=== PATIENT | male | born 1960 | race Caucasian/White ===

== ENCOUNTER 2018-12-06 08:33 | Emergency (ER) | payer BC, MEDICARE ==
--- OUTSIDE RECORDS SUMMARY | 2018-12-06 08:40 | XMS REPORT ---
:1960 [facility] Address [address] [place] [address] Dr. Mosqueda [address] [place] [id number] Care Team Providers Name Role Phone Unavailable Unavailable Unavailable Problems This patient has no known problems. Allergies, Adverse Reactions, Alerts This patient has no known allergies or adverse reactions. Medications This patient has no known medications.
[2018-12-06] MEDS ORDERED: NA CHLORIDE 0.9% 1,000 ML ONE (09:21)
[2018-12-06 09:44] LABS: Urine Blood NEGATIVE (NEG); Urine Glucose NEGATIVE (NEG); Urine Protein NEGATIVE (NEG); Urine Specific Gravity 1.015 (1.005-1.030); Urine pH 7.5 (5.0-7.0)
--- NOTE | 2018-12-06 09:50 | RAD REPORT ---
EXAM DESCRIPTION: [place] Single View12/06/2018 9:27 am CLINICAL HISTORY: Abdominal pain COMPARISON: none FINDINGS: The lungs appear clear of acute infiltrate. The heart is normal size. Old non healed right clavicular fracture IMPRESSION: No acute abnormalities displayed
[2018-12-06] MEDS ORDERED: FENTANYL CITR 100 MCG/2 ML ONE ×2 (09:56→14:29)
[2018-12-06 10:00] LABS: Absolute Lymphocytes (CBC) 1.5 K/uL (0.7-4.9); Absolute Monocytes 0.9 K/uL (0.1-1.3); Basophils % 0.8 % (0-1.3); Hematocrit 47.4 % (39.6-49.0); Lymphocytes % 17.5 % (15.3-44.8); MPV 7.5 fL (7.6-11.3); Monocytes % 10.3 % (3.3-12.3); RBC Red Blood Cell Count 5.16 M/uL (4.33-5.43)
[2018-12-06 10:03] LABS: ALT/SGPT 29 U/L (12-78); AST/SGOT 19 U/L (15-37); Albumin 3.7 g/dL (3.4-5.0); Alkaline Phosphatase 72 U/L (45-117); BUN Blood Urea Nitrogen 17 mg/dL (7-18); Bicarbonate 28 mmol/L (21-32); Bilirubin Direct < 0.1 mg/dL (0-0.2); Bilirubin Total 0.4 mg/dL (0.2-1.0); Creatine Phosphokinase 186 U/L (39-308); Glucose Level 121 mg/dL (74-106); Potassium 3.7 mmol/L (3.5-5.1); Protein, Total 7.5 g/dL (6.4-8.2); Sodium Level 134 mmol/L (136-145)
[2018-12-06 10:04] LABS: Protime INR 1.04
[2018-12-06 10:13] LABS: Urine Bacteria <20 /HPF (NONE SEEN); Urine Culture Reflex Order NOT NEEDED; Urine RBC <5 /HPF (NONE SEEN)
--- NOTE | 2018-12-06 10:39 | EKG ---
Test Date: 2018-12-06 Test Time: 09:23:33 Psychiatric Security Nurse: AMANDEEP MEASUREMENT RESULTS: Intervals: Rate: 109 IN: 158 QRSD: 88 QT: 328 QTc: 441 [place]: P: 19 IN: 158 QRS: 3 T: 15 INTERPRETIVE STATEMENTS: Sinus tachycardia PVCs Otherwise normal ECG No previous ECG available for comparison Electronically Signed On 12-06-18 10:38:56 CDT by Harrison Mike
--- NOTE | 2018-12-06 12:24 | RAD REPORT ---
EXAM DESCRIPTION: MRI - Lumbar Spine Wo Paul - 12/06/2018 12:00 pm CLINICAL HISTORY: Back pain, abdominal pain, urinary retention COMPARISON: MRI lumbar spine November 2015 TECHNIQUE: Sagittal T1-weighted, T2-weighted and T2-STIR weighted sequences were obtained. Axial T1 -weighted and heavily T2-weighted sequenceswere obtained through the lumbar disc levels. FINDINGS: Mild wedge compression of the T12 and L1 bodies noted similar to comparison. No active mar row edema in these 2 vertebrae. L2-L5 bodies are normal in height. There is retrolisthesis of L2 on L 3 and L3 on L4 that has progressed slightly from 2016. Anterior subluxation of L5 on S1 has progresse d slightly from comparison. There is accentuated lumbar lordosis. Mild thoracolumbar kyphosis noted similar to comparison. Active degenerative marrow edema in L4 and L3 noted. This is centered at the L3-4 disc space but invo lves most of each of these 2 vertebrae. No suspicious marrow signal. No paraspinal masses. Conus is normal with no clumping or thickening of the cauda equina. T12-L1 level: Disc is desiccated. Mild disc bulge changes are present. No canal stenosis or significa nt foraminal encroachment. L1-2 level: Disc is thinned and desiccated. Large anterior disc bulge and endplate spurring changes a re present. In the central canal there is a disc bulge without herniation. Foraminal disc bulge and e ndplate spurring changes are present without significant foraminal stenosis. No central canal stenosi s. L2-3 level: Disc is thinned and desiccated. There is a large midline and left-sided disc herniation t hat extends inferiorly along the posterior wall of L3. Herniation measures 10 mm AP x 14 mm TR x 15 m m CC. There is significant flattening of the thecal sac. Central spinal stenosis is present. Mild lig amentous thickening present. Foraminal disc bulge changes are present. No significant foraminal steno sis. L3-4 level: Disc is thinned and desiccated. Disc bulge and endplate spurring changes are accentuated by the retrolisthesis. Canal is borderline stenotic at 10 mm. Mild bilateral foraminal stenosis prese nt. L4-5 level: Disc is thinned and desiccated. There is a prominent bulging of disc material across the central canal but no canal stenosis. No significant foraminal stenosis. L5-S1 level: Disc is thinned and desiccated. There is a prominent pseudo bulge of disc material acros s the central canal. Bilateral pars defects are present. Significant bilateral foraminal stenosis is present due to disc bulge, endplate spurring in the subluxation abnormalities. Prominent facet degene rative changes are also present. IMPRESSION: Large midline and left-side L2-3 disc herniation extending inferiorly along the posterio r wall L3. Thecal sac is flattened with central spinal stenosis. Significant bilateral L5-S1 foraminal stenosis from disc bulge, endplate spurring and subluxation. Se elisa facet degenerative changes are present in pars defects are present. Additional degenerative changes are scattered throughout the lumbar spine. Patient has significant active degenerative marrow edema in the L3 and L4 bodies.
--- NOTE | 2018-12-06 14:27 | ER ---
Nurse's Notes [facility] Name: Luis Ryan Age: 58 yrs Sex: Male : 1960 Arrival Date: 12/06/2018 Time: 08:34 Bed 7 Private MD: Aram Styles S Diagnosis: Low back pain;Retention of urine;Intervertebral disc disorders with myelopathy, lumbar region Presentation: 12/06 08:55 Presenting complaint: Patient states: pain to lower abdomen and lower back started ch after large BM three weeks ago, felt something "pop" in pelvis "down there". slight discomfort since then, about 4 days ago, pain started getting worse, pain is in lower back, radiates down L leg, states when he goes to urinate it doesn't work, he just dribbles all the time, and he is having issues pooping. c/o pain in lower back and lower abdomen, michelle sides. denies trauma, hx of "bad back". Transition of care: patient was not received from another setting of care. Onset of symptoms was December 02, 2018. Risk Assessment: Do you want to hurt yourself or someone else? Patient reports no desire to harm self or others. Initial Sepsis Screen: Does the patient meet any 2 criteria? RR > 20 per min. HR > 90 bpm. Yes Does the patient have a suspected source of infection? No. Patient's initial sepsis screen is negative. Care prior to arrival: None. 08:55 Method Of Arrival: Ambulatory 08:55 Acuity: HINA 2 Triage Assessment: 09:00 General: Appears in no apparent distress. uncomfortable, Behavior is calm, cooperative, ch appropriate for age. Pain: Complains of pain in low back area, right lower quadrant, left lower quadrant and pelvis Pain currently is 6 out of 10 on a pain scale. Neuro: No deficits noted. Level of Consciousness is awake, alert, obeys commands, Oriented to person, place, time, situation, Mounter Automatic are equal bilaterally Moves all extremities. Full function Gait is steady, Speech is normal, Facial symmetry appears normal, Facial symmetry: tongue is midline, Pupils are PERRLA, Reports back pain, radiates down L leg. Cardiovascular: Heart tones S1 S2 present Capillary refill < 3 seconds in bilateral fingers toes Clubbing of nail beds is absent Rhythm is sinus tachycardia. Respiratory: Airway is patent Respiratory effort is even, unlabored, Respiratory pattern is tachypnea. GI: Abdomen is round non-distended, obese, Bowel sounds present X 4 quads. Reports pt states he is constipated, but then when he does have to go it all comes out. c/o nausea with pain. : Reports inability to void, dribbling. Derm: Skin is pale. Musculoskeletal: Circulation, motion, and sensation intact. Historical: - Allergies: 09:00 No Known Allergies; ch - Home Meds: 09:00 lisinopril-hydrochlorothiazide 20-25 mg oral tab 1 tab once daily [Active]; ch Hydrochlorothiazide Oral [Active]; memantine oral oral [Active]; - PMHx: 09:00 Hypertension; Alzheimers; early in dx 11/2018 (2019); ch - PSHx: 09:00 Knee surgery; L forearm; ch - Immunization history:: Adult Immunizations up to date, Flu vaccine is up to date. - Social history:: Smoking status: Patient/guardian denies using tobacco, Patient/guardian denies using alcohol, street drugs. - Ebola Screening: : Patient negative for fever greater than or equal to 101.5 degrees Fahrenheit, and additional compatible Ebola Virus Disease symptoms Patient denies exposure to infectious person Patient denies travel to an Ebola-affected area in the 21 days before illness onset No symptoms or risks identified at this time. Screenin:04 Abuse screen: Denies threats or abuse. Denies injuries from another. Nutritional ch screening: No deficits noted. Tuberculosis screening: No symptoms or risk factors identified. Fall Risk None identified. Assessment: 09:04 Reassessment: Bladder scan performed, 100mL in bladder. Benson in room inserting akins ch now. Neuro: Level of Consciousness is awake, alert, obeys commands, Oriented to person, place, time, situation. 09:38 Reassessment: Patient appears in no apparent distress at this time. Patient and/or ch family updated on plan of care and expected duration. Pain level reassessed. Patient is alert, oriented x 3, equal unlabored respirations, skin warm/dry/pink. pt states he feels relief since the akins insertion, his pain is improved, and is not radiating down his L leg. Patient states feeling better. 11:01 Reassessment: Patient appears in no apparent distress at this time. Patient and/or family updated on plan of care and expected duration. Pain level reassessed. Patient is alert, oriented x 3, equal unlabored respirations, skin warm/dry/pink. Patient states feeling better. Patient states symptoms have improved. 11:37 Reassessment: Patient appears in no apparent distress at this time. pt transported to MRI, family notified he will be here at least another 2 hours to get study done and to get report. 13:10 Reassessment: Patient appears in no apparent distress at this time. Anayeli in room to speak with pt, pt states they want to go to [facility]. 15:38 Reassessment: Patient appears in no apparent distress at this time. still awaiting ems for transfer. pt states he is more comfortable than he was when he came in. Vital Signs: 09:00 BP 151 / 82; Pulse 125; Resp 28; Temp 98.8(O); Pulse Ox 95% on R/A; Pain 6/10; ch 09:38 BP 138 / 84; Pulse 104; Resp 24; Pulse Ox 95% on R/A; Weight 124.74 kg; Height 5 ft. 11 in. (180.34 cm); Pain 6/10; 11:01 BP 127 / 66; Pulse 94; Resp 20; Temp 98.9; Pulse Ox 93% on R/A; Pain 4/10; ch 13:10 BP 116 / 74; Pulse 96; Resp 17; Temp 97.8; Pulse Ox 94% on R/A; Pain 5/10; ch 13:56 BP 122 / 76; Pulse 98; Resp 16; Temp 98; Pulse Ox 95% on R/A; Pain 6/10; ch 16:02 BP 116 / 71; Pulse 92; Resp 16; Temp 98.2; Pulse Ox 99% on R/A; Pain 5/10; ch 09:38 Body Mass Index 38.35 (124.74 kg, 180.34 cm) ED Course: 08:34 Patient arrived in ED. as 08:34 Aram Styles MD is Private Physician. as 08:44 Isis Colon, DEMARCO is Primary Nurse. 08:46 An[facility]eli Flynn [facility]-C [facility] 08:46 Martin Victoria MD is Attending Physician. snw 08:58 Triage completed. ch 09:00 Arm band placed on left wrist. Patient placed in an exam room, on a stretcher, on service sprinkler helper, on pulse oximetry. 09:04 No apparent distress. Resting quietly. ch 09:04 Patient has correct armband on for positive identification. Placed in gown. Bed in low ch position. Call light in reach. Side rails up X2. Adult w/ patient. timber feller on. Pulse ox on. NIBP on. Warm blanket given. 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 ch 09:18 Urine collected: Akins catheter specimen, clear, ayo colored. Akins cath inserted, jb1 using sterile technique, 16 Fr., by ia, balloon inflated, to gravity drainage, urine specimen collected. 09:20 Inserted saline lock: 18 gauge in right forearm, using aseptic technique. Blood ch collected. 09:23 X-ray completed. Portable x-ray completed in exam room. Patient tolerated procedure sw well. 09:23 EKG done, by information technology professor. reviewed by Anayeli ZELAYA. at1 09:26 Chest Single View XRAY In Process Unspecified. EDMS 09:52 Basic Metabolic Panel Sent. sv 11:28 Patient moved to MRI via stretcher. em2 11:52 MRI Lumbar Spine wo Con In Process Unspecified. EDMS 12:10 MRI completed. Patient tolerated well. Patient moved back from [facility]. em2 13:10 Patient transferred, IV remains in place. ch Administered Medications: 09:38 Drug: fentaNYL (PF) 50 mcg Route: IVP; Site: right forearm; 11:38 Follow up: Response: No adverse reaction ch 09:40 Drug: NS 0.9% 1000 ml Route: IV; Rate: 125 ml/hr; Site: right forearm; 14:45 Follow up: IV Status: Infusion continued upon transfer ch 14:10 Drug: fentaNYL (PF) 25 mcg Route: IVP; Site: right forearm; Outcome: 14:27 ER care complete, transfer ordered by . snw 16:10 Transferred by ground EMS to [facility], Transfer form completed. X-rays sent w/ patient. 16:10 Condition: improved 16:10 Instructed on the need for transfer. 16:11 Patient left the ED. ch Signatures: Dispatcher [employer] Benson Edmonds jb1 Isis Colon, DEMARCO RN Kiarra Hart RN RN Anayeli Moran, JUNIOR ART DIRECTOR-C JUNIOR ART DIRECTOR-Csnw Rajwinder Rossi Enrique em2 Risa De Los Santos, flying ii instructor EKG Tat1 Lizzeth Sparks Corrections: (The following items were deleted from the chart) 09:40 09:10 Inserted saline lock: 18 gauge in right forearm, using aseptic technique. Blood ch collected. ch 16:03 15:38 Pulse 184bpm; Resp 42bpm; Pulse Ox 100% RA; ch ch
--- NOTE | 2018-12-06 14:28 | EDPHYS ---
Physician Documentation [facility] Name: Luis Ryan Age: 58 yrs Sex: Male : 1960 Arrival Date: 12/06/2018 Time: 08:34 Bed 7 Private MD: Aram Styles S ED Physician Martin Victoria HPI: 12/06 09:08 This 58 yrs old Male presents to ER via Ambulatory with complaints of Back snw Pain, Urinary Retention. 09:08 The patient presents with pain that is acute, s/p episode of constipation 1 mo ago, snw worse over the past 4 days. The symptoms are located in the low back. Onset: The symptoms/episode began/occurred as noted above. Location: right buttock. The problem was sustained s/p straining for BM. Severity of symptoms: At their worst the symptoms were moderate, severe. The patient has not experienced similar symptoms in the past. It is unknown whether or not the patient has recently seen a physician. Historical: - Allergies: 09:00 No Known Allergies; ch - Home Meds: 09:00 lisinopril-hydrochlorothiazide 20-25 mg oral tab 1 tab once daily [Active]; ch Hydrochlorothiazide Oral [Active]; memantine oral oral [Active]; - PMHx: 09:00 Hypertension; Alzheimers; early in dx 11/2018 (2018); ch - PSHx: 09:00 Knee surgery; L forearm; ch - Immunization history:: Adult Immunizations up to date, Flu vaccine is up to date. - Social history:: Smoking status: Patient/guardian denies using tobacco, Patient/guardian denies using alcohol, street drugs. - Ebola Screening: : Patient negative for fever greater than or equal to 101.5 degrees Fahrenheit, and additional compatible Ebola Virus Disease symptoms Patient denies exposure to infectious person Patient denies travel to an Ebola-affected area in the 21 days before illness onset No symptoms or risks identified at this time. ROS: 09:06 Constitutional: Negative for fever, chills, and weight loss, Eyes: Negative for injury, snw pain, redness, and discharge, ENT: Negative for injury, pain, and discharge, Neck: Negative for injury, pain, and swelling, Cardiovascular: Negative for chest pain, palpitations, and edema, Respiratory: Negative for shortness of breath, cough, wheezing, and pleuritic chest pain. 09:06 MS/Extremity: Negative for injury and deformity, Skin: Negative for injury, rash, and discoloration, Neuro: Negative for headache, weakness, numbness, tingling, and seizure. 09:06 Abdomen/GI: Positive for abdominal pain. 09:06 Back: Positive for pain at rest, pain with movement. 09:06 : Positive for urinary symptoms. Exam: 09:04 Head/Face: Normocephalic, atraumatic. Eyes: Pupils equal round and reactive to light, snw extra-ocular motions intact. Lids and lashes normal. Conjunctiva and sclera are non-icteric and not injected. Cornea within normal limits. Periorbital areas with no swelling, redness, or edema. ENT: Nares patent. No nasal discharge, no septal abnormalities noted. Tympanic membranes are normal and external auditory canals are clear. Oropharynx with no redness, swelling, or masses, exudates, or evidence of obstruction, uvula midline. Mucous membranes moist. Neck: Trachea midline, no thyromegaly or masses palpated, and no cervical lymphadenopathy. Supple, full range of motion without nuchal rigidity, or vertebral point tenderness. No Meningismus. Chest/axilla: Normal chest wall appearance and motion. Nontender with no deformity. No lesions are appreciated. 09:04 Abdomen/GI: Soft, non-tender, with normal bowel sounds. No distension or tympany. No guarding or rebound. No evidence of tenderness throughout. Back: No spinal tenderness. No costovertebral tenderness. Full range of motion. Skin: Warm, dry with normal turgor. Normal color with no rashes, no lesions, and no evidence of cellulitis. MS/ Extremity: Pulses equal, no cyanosis. Neurovascular intact. Full, normal range of motion. Neuro: Awake and alert, GCS 15, oriented to person, place, time, and situation. Cranial nerves II-XII grossly intact. Motor strength 5/5 in all extremities. Sensory grossly intact. Cerebellar exam normal. Normal gait. 09:04 Constitutional: The patient appears awake, anxious, obese, restless, uncomfortable. 09:04 Cardiovascular: Rate: tachycardic, Heart sounds: murmur. 09:04 Respiratory: the patient does not display signs of respiratory distress, Respirations: tachypnea, that is moderate, Breath sounds: are clear throughout. 09:48 ECG was reviewed by the Attending Physician. snw Vital Signs: 09:00 BP 151 / 82; Pulse 125; Resp 28; Temp 98.8(O); Pulse Ox 95% on R/A; Pain 6/10; ch 09:38 BP 138 / 84; Pulse 104; Resp 24; Pulse Ox 95% on R/A; Weight 124.74 kg; Height 5 ft. 11 ch in. (180.34 cm); Pain 6/10; 11:01 BP 127 / 66; Pulse 94; Resp 20; Temp 98.9; Pulse Ox 93% on R/A; Pain 4/10; ch 13:10 BP 116 / 74; Pulse 96; Resp 17; Temp 97.8; Pulse Ox 94% on R/A; Pain 5/10; ch 13:56 BP 122 / 76; Pulse 98; Resp 16; Temp 98; Pulse Ox 95% on R/A; Pain 6/10; ch 16:02 BP 116 / 71; Pulse 92; Resp 16; Temp 98.2; Pulse Ox 99% on R/A; Pain 5/10; ch 09:38 Body Mass Index 38.35 (124.74 kg, 180.34 cm) ch MDM: 09:02 Patient medically screened. snw 13:25 Physician consultation: Dr. Borja was called at 14:27, was contacted at 14:27, snw regarding regarding transfer, Dr. Borja kindly accepts pt in transfer. 14:27 Data reviewed: vital signs, nurses notes. Data interpreted: Pulse oximetry: on room air snw is 95 %. Interpretation: acceptable. Counseling: I had a detailed discussion with the patient and/or guardian regarding: the historical points, exam findings, and any diagnostic results supporting the discharge/admit diagnosis, lab results, radiology results, the need to transfer to another facility, for higher level of care, [facility] does not immediately have the required specialist. 12/06 09:02 Order name: Basic Metabolic Panel snw 12/06 09:02 Order name: Blood Culture Adult (2) snw 12/06 09:02 Order name: CBC with Diff; Complete Time: 10:30 snw 12/06 09:02 Order name: Ckmb; Complete Time: 10:30 snw 12/06 09:02 Order name: CPK; Complete Time: 10:30 snw 12/06 09:02 Order name: Lactate; Complete Time: 10:30 snw 12/06 09:02 Order name: LFT's; Complete Time: 10:30 snw 12/06 09:02 Order name: Procalcitonin; Complete Time: 10:58 snw 12/06 09:02 Order name: Protime (+inr); Complete Time: 10:30 snw 12/06 09:02 Order name: Ptt, Activated; Complete Time: 10:30 snw 12/06 09:02 Order name: Urine Microscopic Only; Complete Time: 10:30 snw 12/06 09:03 Order name: Basic Metabolic Panel; Complete Time: 10:30 EDMS 12/06 09:39 Order name: Urine Dipstick--Ancillary (enter results); Complete Time: 09:47 bd 12/06 13:49 Order name: Glucose, Ancillary Testing; Complete Time: 13:50 EDMS 12/06 09:02 Order name: MRI Lumbar Spine wo Con; Complete Time: 12:29 snw 12/06 09:02 Order name: Bladder Scanner; Complete Time: 09:33 snw 12/06 09:02 Order name: Chest Single View XRAY; Complete Time: 10:30 snw 12/06 09:02 Order name: Accucheck; Complete Time: 09:32 snw 12/06 09:02 Order name: Cardiac monitoring; Complete Time: 09:32 snw 12/06 09:02 Order name: EKG - Nurse/Tech; Complete Time: 09:32 snw 12/06 09:02 Order name: IV Saline Lock - Large Bore; Complete Time: 09:33 snw 12/06 09:02 Order name: Labs collected and sent; Complete Time: 09:33 snw 12/06 09:02 Order name: O2 Per Protocol; Complete Time: 09:33 snw 12/06 09:02 Order name: O2 Sat Monitoring; Complete Time: 09:33 snw 12/06 09:02 Order name: Urine Dipstick-Ancillary (obtain specimen); Complete Time: 09:19 snw 12/06 09:02 Order name: Akins; Complete Time: 09:18 snw 12/06 10:10 Order name: EKG Electrocardiogram EDNH 12/06 13:51 Order name: Misc. Order: lidocaine jelly around head of penis, akins irritation; snw Complete Time: 14:45 EC:48 Rate is 109 beats/min. Rhythm is regular. QRS [place] is Normal. NC interval is normal. snw QRS interval is normal. QT interval is normal. No Q waves. T waves are Normal. Clinical impression: NSR w/ Non-specific ST/T Changes. Administered Medications: 09:38 Drug: fentaNYL (PF) 50 mcg Route: IVP; Site: right forearm; 11:38 Follow up: Response: No adverse reaction 09:40 Drug: NS 0.9% 1000 ml Route: IV; Rate: 125 ml/hr; Site: right forearm; 14:45 Follow up: IV Status: Infusion continued upon transfer ch 14:10 Drug: fentaNYL (PF) 25 mcg Route: IVP; Site: right forearm; Disposition: 12/07 06:53 Co-signature as Attending Physician, Martin Victoria MD I agree with the assessment and kdr plan of care. Disposition: 12/06/18 14:27 Transfer ordered to [facility] Diagnosis are Low back pain, Retention of urine, Intervertebral disc disorders with myelopathy, lumbar region. - Reason for transfer: Higher level of care. - Accepting physician is Dr. Borja. - Condition is Stable. - Problem is new. - Symptoms are unchanged. Signatures: Dispatcher [employer] [facility] Isis Colon RN RN Martin Victoria MD MD [facility] Anayeli Flynn, VISCOSE CELLAR CHARGE HAND-C VISCOSE CELLAR CHARGE HAND-Csnw Corrections: (The following items were deleted from the chart) 12/06 16:11 14:27 12/06/2018 14:27 Transfer ordered to [facility] Diagnosis is Low back pain; ch Retention of urine; Intervertebral disc disorders with myelopathy, lumbar region. Reason for transfer: Higher level of care. Accepting physician is Dr. Borja. Condition is Stable. Problem is new. Symptoms are unchanged. snw
[2018-12-06] MEDS ORDERED: LIDOCAINE VISCOUS 2% SOLN 15 ML UDC ONE (14:29)
== END 2018-12-06 16:11 | disposition short-term general hospital (02) ==
LOC: ER 08:33
DX: R33.9 Retention of urine, unspecified (principal); M51.06 Intervertebral disc disorders with myelopathy, lumbar region; I10 Essential (primary) hypertension; G30.9 Alzheimer's disease, unspecified; F02.80 Dementia in other diseases classified elsewhere, unspecified severity, without behavioral disturbance, psychotic disturbance, mood disturbance, and anxiety
CPT/HCPCS: 96361; 93005; 87040 ×2; 85025; 80048; 36415; 82550; 85610; 82962; 80076; 83605; 85730; 82553; 84145; 71045; 72148; 51702; 96374; 99285; J3010 ×2; J7030; 81003; 81015

== ENCOUNTER 2020-04-16 15:24 | Emergency (ER) | payer MEDICARE ==
--- OUTSIDE RECORDS SUMMARY | 2020-04-16 15:27 | XMS REPORT | Summary of Care ---
:1960 Author Organization [facility] Address [address] [place] [address] Care Team Providers Name Role Phone Aram Styles MD Primary Care Provider Reason for Visit Reason Comments Notification Encounter Details Date Type Department Care Team Description 02/18/2020 Telephone [facility] Family Medicine Aram Alvarenga MD Notification - [address] [place] [address] [place] [address] [phone] Allergies No Known Allergiesdocumented as of this encounter (statuses as of 02/18/2020) Medications Medication Sig Dispensed Refills Start Date End Date Status memantine 10 mg tablet 0 11/27/2017 Active cyclobenzaprine 10 mg Take 1 tablet 60 tablet 2 12/05/2017 Active tablet by mouth 3 (three) times daily. ibuprofen 800 mg Take 1 tablet 0 11/30/2019 Active tabletIndications: Right by mouth inguinal hernia every 6 (six) hours as needed for Pain (scale 1-3) or Pain (scale 4-6). lisinopril-hydrochlorothiaz Take 1 tablet 90 tablet 3 02/13/20 20 Active flash 20-12.5 mg per by mouth tabletIndications: daily. Essential hypertension hydroCHLOROthiazide 25 mg Take 1 tablet 90 tablet 1 02/13/2020 Active tabletIndications: by mouth Essential hypertension daily. atorvastatin (LIPITOR) 20 Take 1 tablet 90 tablet 1 02/13/2020 Active mg tabletIndications: Mixed by mouth at hyperlipidemia bedtime. documented as of this encounter (statuses as of 02/18/2020) Active Problems Problem Noted Date Urinary retention with incomplete bladder emptying 11/2019 Right inguinal hernia 10/03/2019 Overview: Added automatically from request for devin francois [id number] Class 3 severe obesity without serious comorbidity wit h body mass index 09/10/2019 (BMI) of 40.0 to 44.9 in adult, unspecified obesity ty pe Obesity (BMI 30-39.9) 12/22/2018 Compression fracture of lumbar vertebra 12/06/2018 Morbid obesity with body mass index of 40.0-49.9 12/06 Edema 06/12/2015 Erectile dysfunction 06/12/2015 Osteoarthritis 06/12/2015 Internal derangement of knee involving lateral meniscu s 06/12/2015 Hyperlipidemia 06/12/2015 Chronic pain 05/30/2015 Essential hypertension 05/30/2015 Knee joint replacement status 05/30/2015 documented as of this encounter (statuses as of 02/18/2020) Immunizations Name Administration Dates Next Due Influenza Virus Vaccine Quad ID 18-64 YRS 06/02/2015 Influenza Virus Vaccine Quad IM 3+ YRS 04/20/2018 TDAP 03/02/2013 documented as of this encounter Social History Tobacco Use Types Packs/Day Years Used Date Never Smoker Smokeless Tobacco: Former User Snuff Comments: quit dipping a year ago Alcohol Use Drinks/Week oz/Week Comments No Sex Assigned at Date Recorded Not on file Job Start Date Occupation Industry Not on file Not on file Not on file Travel History Travel Start Travel End No recent travel history available. COVID-19 Exposure Response Date Recorded In the last month, have you been in contact with No / Unsure 02/13/2020 3:51 PM CDT someone who was confirmed or suspected to have Coronavirus / COVID-19? documented as of this encounter Last Filed Vital Signs Not on filedocumented in this encounter Plan of Treatment Health Maintenance Due Date Last Done Comments COLONOSCOPY 2008 Zoster Recombinant Vaccine 2008 (SHINGRIX) (1 of 2) INFLUENZA VACCINE (#1) 2020 04/20/2018 Depression Screening 12/03/2020 12/04/2019 DTaP,Tdap,and Td Vaccines (2 - Td) 03/02/2023 03/02/2013 HEPATITIS C (HCV) SCREEN Completed 03/05/2019 PNEUMOCOCCAL 0-64 YEARS COMBINED Aged Out No longer eligible based on SERIES patient's age to complete this topic documented as of this encounter Implants Implanted Type Area Solutions Sales Executive Device Shelf Model / Identifier Expiration Serial / Date Lot Mesh, Ethicon Prolene 2.4 X 5.4 Preshaped #Pmlk - Sna MESH Lita t: Ethicon 06/30/2023 PMLK / Implanted: Qty: 1 on 11/30/2019 by Claudy Pineda MD at [facility] AT [facility] NA / [id number] documented as of this encounter Results Not on filedocumented in this encounter Insurance Payer Benefit Plan / Subscriber ID Effective Phone Address T ype Group Dates [facility]/AARP [id number] 2019-Martell ferrari [facility] - MEDICARE HMO MANAGED MEDICARE ADVANTAGE documented as of this encounter
--- OUTSIDE RECORDS SUMMARY | 2020-04-16 15:27 | XMS REPORT | Summary of Care ---
:1960 Author Organization [facility] Address [address] [place] [address] Care Team Providers Name Role Phone Aram Styles MD Primary Care Provider Reason for Visit Reason Comments Forms Encounter Details Date Type Department Care Team Description 03/28/2020 Telephone [facility] Family Medicine Aram Alvarenga MD Forms - [address] [place] [address] [place] [address] [phone] Allergies No Known Allergiesdocumented as of this encounter (statuses as of 03/31/2020) Medications Medication Sig Dispensed Refills Start Date [...] as of this encounter (statuses as of 03/31/2020) Active Problems Problem Noted Date Urinary retention with incomplete bladder emptying 11/2019 Right inguinal hernia 10/03/2019 Overview: Added automatically from request for devin francois [id number] Class 3 severe obesity without serious comorbidity [...] as of this encounter (statuses as of 03/31/2020) Immunizations Name Administration Dates Next Due Influenza [...] Assigned at Date Recorded Not on file documented as of this encounter Last Filed Vital Signs Not on filedocumented in this encounter Miscellaneous Notes Telephone Encounter - Amie Gilbert LVN - 03/31/2020 10:28 AM CDTFaxed THOR note to [facility] Whitney at [phone] signed by Amie Gilbert LVN at 03/31/2020 10:28 AM CDTTelephone Encounter - Beatriz Mcrae - 03/28/2020 1:44 PM [facility] is calling and is requesting for us to fax over the patient recent chart notes signed in order for them to fill the supplies for the patient, please call Whitney back at [phone] fax number is [phone] signed by Beatriz Mcrae at 03/28/2020 1:46 PM CDTdocumented in this encounter Plan of Treatment Health Maintenance Due Date Last Done Comments PNEUMOCOCCAL 0-64 YEARS COMBINED SERIES (1 of 3 - 1964 PCV13) COLON CANCER SCREENING FIT DNA EVERY 3 YEARS 2008 COLON CANCER SCREENING SIGMOIDOSCOPY EVERY 5 YEARS 2008 COLONOSCOPY 2008 Zoster Recombinant Vaccine (SHINGRIX) (1 of 2) 2008 COLON CANCER SCREENING ANNUAL FIT/FOBT 03/07/2020 9 Colorectal Cancer Screening 03/07/2020 INFLUENZA VACCINE (#1) 2020 04/20/2018 Depression Screening 12/03/2020 12/04/2019 DTaP,Tdap,and Td Vaccines (2 - Td) 03/02/2023 03/02/2013 HEPATITIS C (HCV) SCREEN Completed 03/05/2019 documented as of this encounter Implants Implanted Type Area Animal Keeper Head Device Shelf Model / Identifier Expiration Serial / Date Lot Mesh, Ethicon Prolene 2.4 X 5.4 Preshaped #Pmlk - Sna MESH Righ t: Ethicon 06/30/2023 PMLK / Implanted: Qty: 1 on 11/30/2019 by Claudy Pineda MD at [facility] AT [facility] NA / [id number] documented as of this encounter Results Not on filedocumented in this encounter Insurance Payer Benefit Plan / Subscriber ID Effective Phone Address T ype Group Dates [facility] [id number] 2019-Prese Me ferrari [facility] - MEDICARE nt HMO MANAGED MEDICARE ADVANTAGE documented as of this encounter
--- OUTSIDE RECORDS SUMMARY | 2020-04-16 15:27 | XMS REPORT | Summary of Care ---
:1960 Author Organization [facility] - [facility] Address [address] [place] [address] Care Team Providers Name Role Phone Aram Styles MD Primary Care Provider Reason for Visit Reason Comments Follow-up discuss CPAP supplies for or dering Refill Request Encounter Details Date Type Department Care Team Description 02/13/2020 Office Visit [facility] Aram Styles, Sleep apnea , unspecified type (Primary Dx); Pediatric and Adult Essential hypertension; Primary Care- [address] [place] [address] Mixed hyperl ipidemia [facility] [address] [place] [address], [address] [address] [place], [place] [phone] [address] [phone] Allergies No Known Allergiesdocumented as of this encounter (statuses as of 02/13/2020) Medications Medication Sig Dispensed Refills Start End Date Status Date memantine 10 mg tablet 0 Active 8 cyclobenzaprine 10 mg Take 1 60 tablet 2 Active tablet tablet by 8 mouth 3 (three) times daily. ibuprofen 800 mg Take 1 0 Act flavia tabletIndications: Right tablet by 0 inguinal hernia mouth every 6 (six) hours as needed for Pain (scale 1-3) or Pain (scale 4-6). lisinopril-hydrochloroth Take 1 90 tablet 3 Active iazide 20-12.5 mg per tablet by 0 tabletIndications: mouth Essential hypertension daily. hydroCHLOROthiazide 25 Take 1 90 tablet 1 Active mg tabletIndications: tablet by 0 Essential hypertension mouth daily. atorvastatin (LIPITOR) Take 1 90 tablet 1 Active 20 mg tabletIndications: tablet by 0 Mixed hyperlipidemia mouth at bedtime. lisinopril-hydrochloroth Take 1 90 tablet 3 02/12 Discontinued iazide 20-12.5 mg per tablet by 9 20 (Reorder) tabletIndications: mouth Essential hypertension daily. atorvastatin (LIPITOR) Take 1 90 tablet 1 0 Discontinued 20 mg tabletIndications: tablet by 0 20 (Reorder) Mixed hyperlipidemia mouth at bedtime. hydroCHLOROthiazide 25 Take 1 90 tablet 1 0 Discontinued mg tabletIndications: tablet by 0 20 (Reorder) Essential hypertension mouth daily. documented as of this encounter (statuses as of 02/13/2020) Active Problems Problem Noted Date Urinary retention with incomplete bladder emptying 11/2019 Right inguinal hernia 10/03/2019 Overview: Added automatically from request for devin priscila [id number] Class 3 severe obesity without serious comorbidity [...] as of this encounter (statuses as of 02/13/2020) Immunizations Name Administration Dates Next Due Influenza [...] of this encounter Last Filed Vital Signs Vital Sign Reading Time Taken Comments Blood Pressure 130/70 02/13/2020 3:45 PM CDT Pulse - - Temperature - - Respiratory Rate - - Oxygen Saturation - - Inhaled Oxygen Concentration - - Weight 147.9 kg (326 lb) 02/13/2020 3:45 PM CDT Height - - Body Mass Index 45.47 12/27/2019 10:51 AM CDT documented in this encounter Progress Notes Aram Styles MD - 02/13/2020 4:00 PM CDT Cc: CPAP Chief Complaint Patient presents with Follow-up discuss CPAP supplies for ordering Refill Request Luis Ryan is a 59 year old male. CPAP, medication refills Allergies Luis has No Known Allergies. Medications Outpatient Medications Prior to Visit Medication Sig Dispense Refill atorvastatin (LIPITOR) 20 mg tablet Take 1 tablet by mouth at bedtime. 90 tablet 1 hydroCHLOROthiazide 25 mg tablet Take 1 tablet by mouth daily. 90 tablet 1 lisinopril-hydrochlorothiazide 20-12.5 mg per tablet Take 1 tablet by mouth daily. 90 tablet 3 memantine 10 mg tablet ibuprofen 800 mg tablet Take 1 tablet by mouth every 6 (six) hours as needed for Pain (scale 1-3) or Pain (scale 4-6). cyclobenzaprine 10 mg tablet Take 1 tablet by mouth 3 (three) times daily. 60 tablet 2 No facility-administered medications prior to visit. Histories Past Medical History: Diagnosis Date Hyperlipidemia 06/12/2015 Hypertension Past Surgical History: Procedure Laterality Date FOREARM/WRIST SURGERY UNLISTED Left INGUINAL HERNIORRHAPHY Right 11/30/2019 Surgeon: Claudy Pineda MD; [facility] JOINT SURGERY both knees POSTERIOR LAMINECTOMY Bilateral 12/22/2018 Surgeon: Christiano Borja MD; [facility] Social History Socioeconomic History Marital status: Spouse name: Not on file Number of children: Not on file Years of education: Not on file Highest education level: Not on file Occupational History Not on file Social Needs Financial resource strain: Not on file Food insecurity: Worry: Not on file Inability: Not on file Transportation needs: Medical: Not on file Non-medical: Not on file Tobacco Use Smoking status: Never Smoker Smokeless tobacco: Former User Types: Snuff Tobacco comment: quit dipping a year ago Substance and Sexual Activity Alcohol use: No Drug use: Not on file Sexual activity: Not on file Lifestyle Physical activity: Days per week: Not on file Minutes per session: Not on file Stress: Not on file Relationships Social connections: Talks on phone: Not on file Gets together: Not on file Attends hoahaoism service: Not on file Active member of club or organization: Not on file Attends meetings of clubs or organizations: Not on file Relationship status: Not on file Intimate partner violence: Fear of current or ex partner: Not on file Emotionally abused: Not on file Physically abused: Not on file Forced sexual activity: Not on file Other Topics Concern Not on file Social History Narrative Not on file No family history on file. Review of Systems Vital Signs BP 130/70 | Wt 326 lb (147.9 kg) | BMI 45.47 kg/m Physical Exam Constitutional: He appears well-developed and well-nourished. HENT: Head: Normocephalic and atraumatic. Right Ear: External ear normal. Left Ear: External ear normal. Cardiovascular: Normal rate and regular rhythm. Pulmonary/Chest: Effort normal. Abdominal: Soft. Musculoskeletal: Normal range of motion. Neurological: He is alert. Vitals reviewed. Assessment/Plan Sleep Apnea, 5 yr hx. 18 cm H2O pressure. Needs new tubes and supplies HTN, medication refill Hyperlipidemia, medication refill This visit did not involve counseling and coordination that comprised more than 50% of the visit time. documented in this encounter Plan of Treatment Health [...] of this encounter Implants Implanted Type Area Wheel And Pinion Inspector Device Shelf Model / Identifier Expiration Serial / Date Lot Mesh, Ethicon Prolene 2.4 X 5.4 Preshaped #Pmlk - Sna MESH Lita t: Ethicon 06/30/2023 PMLK / Implanted: Qty: 1 on 11/30/2019 by Claudy Pineda MD at [facility] NA / [id number] documented as of this encounter Results Not on filedocumented in this encounter Visit Diagnoses Diagnosis Sleep apnea, unspecified type - Primary Essential hypertension Unspecified essential hypertension Mixed hyperlipidemia documented in this encounter Insurance Payer Benefit Plan / Subscriber ID Effective Phone Address T ype Group Dates [facility] [id number] 2019-Martell ferrari [facility] - MEDICARE HMO MANAGED MEDICARE ADVANTAGE documented as of this encounter"
--- OUTSIDE RECORDS SUMMARY | 2020-04-16 15:27 | XMS REPORT | Summary of Care ---
:1960 Author Organization [facility] Address [address] [place] [address] Care Team Providers Name Role Phone Aram Styles MD Primary Care Provider Reason for Visit Reason Comments Orders Encounter Details Date Type Department Care Team Description 02/26/2020 Telephone [facility] Family Medicine Aram Alvarenga MD Orders - [address] [place] [address] [place] [address] [phone] Allergies No Known Allergiesdocumented as of this encounter (statuses as of 02/26/2020) Medications Medication Sig Dispensed Refills Start Date [...] as of this encounter (statuses as of 02/26/2020) Active Problems Problem Noted Date Urinary retention with incomplete bladder emptying 11/2019 Right inguinal hernia 10/03/2019 Overview: Added automatically from request for devin francois [id number] Class 3 severe obesity without serious comorbidity [...] as of this encounter (statuses as of 02/26/2020) Immunizations Name Administration Dates Next Due Influenza [...] of this encounter Implants Implanted Type Area Hearing Aide Technician Device Shelf Model / Identifier Expiration Serial / Date Lot Mesh, Ethicon Prolene 2.4 X 5.4 Preshaped #Pmlk - Sna MESH Lita t: Ethicon 06/30/2023 PMLK / Implanted: Qty: 1 on 11/30/2019 by Claudy Pineda MD at [facility] AT [facility] NA / [id number] documented as of this encounter Results Not on filedocumented in this encounter Insurance Payer Benefit Plan / Subscriber ID Effective Phone Address T ype Group Dates [facility]/AARP [id number] 2019-Martell ferrari [facility] - MEDICARE HMO MANAGED MEDICARE ADVANTAGE documented as of this encounter
--- OUTSIDE RECORDS SUMMARY | 2020-04-16 15:27 | XMS REPORT | Summary of Care ---
:1960 Author Organization [facility] - [facility] Address [address] [place] [address] Care Team Providers Name Role Phone Aram Styles MD Primary Care Provider Reason for Visit Reason Comments Follow-up discuss CPAP supplies for or dering Refill Request Encounter Details Date Type Department Care Team Description 02/13/2020 Office Visit [facility] Aram Styles, Sleep apnea , unspecified type (Primary Dx); Pediatric and Adult Essential hypertension; Primary Care- [address] [place] [address] Mixed hyperl ipidemia [facility] [address] [place] [address], [address] [address] [place], [place] [phone] [address] [phone] Allergies No Known Allergiesdocumented as of this [...] Added automatically from request for devin priscila [id number] Class 3 severe obesity without serious comorbidity [...] Borja MD; Location: [facility] Social History Socioeconomic History Marital status: Spouse [...] file Gets together: Not on file Attends cheondoism service: Not on file Active member of [...] of this encounter Implants Implanted Type Area Flaring Machine Operator Device Shelf Model / Identifier Expiration Serial / Date Lot Mesh, Ethicon Prolene 2.4 X 5.4 Preshaped #Pmlk - Sna MESH Lita t: Ethicon 06/30/2023 PMLK / Implanted: Qty: 1 on 11/30/2019 by Claudy Pineda MD at [facility] NA / [id number] documented as of this encounter Results Not on filedocumented in this encounter Visit Diagnoses Diagnosis Sleep apnea, unspecified type - Primary Essential hypertension Unspecified essential hypertension Mixed hyperlipidemia documented in this encounter Insurance Payer Benefit Plan / Subscriber ID Effective Phone Address T ype Group Dates [facility] [id number] 2019-Martell ferrari [facility] - MEDICARE HMO MANAGED MEDICARE ADVANTAGE documented as of this encounter"
--- OUTSIDE RECORDS SUMMARY | 2020-04-16 15:27 | XMS REPORT | Continuity of Care Document ---
:1960 Author Organization [facility] t Address [address] [place] [address] Care Team Providers Name Role Phone Jensen NEVES Attending Clinician Doctor Unassigned, Name Attending Clinician Unavailable Problems This patient has no known problems. Allergies, Adverse Reactions, Alerts This patient has no known allergies or adverse reactions. Medications This patient has no known medications. Procedures This patient has no known procedures. Encounters Start End Encounter Admission Attending Care Care Encounter Source Date/Time Date/Time Type Type Clinicians Facility Department ID 2020-03-28 2020-03-28 TONY Geronimo [id number] 00:00:00 00:00:00 [facility] [id number] [place] [id number] [place] [phone] nal [address] 2020-02-26 2020-02-26 Anson Styles PRMICHELLE [id number] 00:00:00 00:00:00 [facility] [id number] [place] [id number] Professio [phone] nal 044 [address] 2020-02-26 2020-02-26 Orders Doctor OBREGON [id number] 00:00:00 00:00:00 Only Unassigned, GIOVANNY [id number] [place] [facility] [phone] [id number] 2020-02-18 2020-02-18 Telephone Jensen PRMICHELLE [id number] 00:00:00 00:00:00 [facility] [id number] [place] [id number] Professio [phone] [place] [address] [address] 2020-02-13 2020-02-13 [facility] [id number] 15:31:09 15:46:09 Visit Aram Galan [id number] [place] [id number] [place] [phone] [address] Results This patient has no known results.
--- OUTSIDE RECORDS SUMMARY | 2020-04-16 15:27 | XMS REPORT | Summary of Care ---
:1960 Author Organization [facility] - Health Address [address] [place] [address] Care Team Providers Name Role Phone Aram Styles MD Primary Care Provider Encounter Details Date Type Department Care Team Description 02/26/2020 Orders Only [facility] Doctor Unassigned, No [address] [facility] [place] [address] [address] [place] [address] Allergies No Known Allergiesdocumented as of this encounter (statuses as of 03/07/2020) Medications Medication Sig Dispensed Refills Start Date [...] as of this encounter (statuses as of 03/07/2020) Active Problems Problem Noted Date Urinary retention with incomplete bladder emptying 11/2019 Right inguinal hernia 10/03/2019 Overview: Added automatically from request for devin francois [id number] Class 3 severe obesity without serious comorbidity [...] as of this encounter (statuses as of 03/07/2020) Immunizations Name Administration Dates Next Due Influenza [...] Assigned at Date Recorded Not on file COVID-19 Exposure Response Date Recorded In the last month, have you been in contact with No / Unsure 02/13/2020 3:51 PM CDT someone who was confirmed or suspected to have Coronavirus / COVID-19? documented as of this encounter Last Filed Vital Signs Not on filedocumented in this encounter Plan of Treatment Health Maintenance Due Date Last Done Comments COLON CANCER SCREENING FIT DNA 2008 EVERY 3 YEARS COLON CANCER SCREENING 2008 SIGMOIDOSCOPY EVERY 5 YEARS COLONOSCOPY 2008 Zoster Recombinant Vaccine 2008 (SHINGRIX) (1 of 2) COLON CANCER SCREENING ANNUAL 03/07/2020 03/07/2019 FIT/FOBT Colorectal Cancer Screening 03/07/2020 INFLUENZA VACCINE (#1) 2020 04/20/2018 Depression Screening 12/03/2020 12/04/2019 DTaP,Tdap,and Td Vaccines (2 - Td) 03/02/2023 03/02/2013 HEPATITIS C (HCV) SCREEN Completed 03/05/2019 PNEUMOCOCCAL 0-64 YEARS COMBINED Aged Out No longer eligible based on SERIES patient's age to complete this topic documented as of this encounter Implants Implanted Type Area Sales Agent Device Shelf Model / Identifier Expiration Serial / Date Lot Mesh, Ethicon Prolene 2.4 X 5.4 Preshaped #Pmlk - Sna MESH Righ t: Ethicon 06/30/2023 PMLK / Implanted: Qty: 1 on 11/30/2019 by Claudy Pineda MD at [facility] AT [facility] NA / [id number] documented as of this encounter Procedures Procedure Name Priority Date/Time Associated Diagnosis Comme nts REFERRAL- Routine 02/26/2020 12:01 AM CDT REQUEST/RESPONSE documented in this encounter Results Not on filedocumented in this encounter Insurance Payer Benefit Plan / Subscriber ID Effective Phone Address T ype Group Dates [facility] [id number] 2019-Martell Oleary [facility] - MEDICARE nt HMO MANAGED MEDICARE ADVANTAGE documented as of this encounter
[2020-04-16 15:57] LABS: Absolute Lymphocytes (CBC) 1.5 K/uL (0.7-4.9); Basophils % 0.8 % (0-1.3); Hematocrit 41.5 % (39.6-49.0); Lymphocytes % 14.4 % (15.3-44.8); MPV 7.5 fL (7.6-11.3)
[2020-04-16 16:03] LABS: Protime INR 0.99
[2020-04-16] MEDS ORDERED: NA CHLORIDE 0.9% 500 ML ONE (16:04)
[2020-04-16 16:08] LABS: Potassium 3.5 mmol/L (3.5-5.1)
--- NOTE | 2020-04-16 16:39 | RAD REPORT ---
EXAM DESCRIPTION: CT - Head Brain Wo Cont - 04/16/2020 4:01 pm CLINICAL HISTORY: Facial droop COMPARISON: None TECHNIQUE: Computed axial tomography of the head was obtained. IV contrast was not requested. All CT scans are performed using dose optimization technique as appropriate and may include automated exposure control or mA/KV adjustment according to patient size. FINDINGS: An intracranial bleed is not seen . The ventricles are normal in caliber. No extra-axial fluid collection is noted. Curvilinear structure within the right frontal lobe may rep resent a venous angioma Fluid within the sinuses/ mastoids is not seen. Chronic left maxillary sinusitis IMPRESSION: No acute intracranial abnormality is seen. If patient's symptoms persist MRI of the bra in would be recommended.
[2020-04-16] MEDS ORDERED: dexAMETHasone 10 MG/ML VIAL ONE (17:03)
--- NOTE | 2020-04-16 17:08 | ER ---
Nurse's Notes [facility] Name: Luis Ryan Age: 59 yrs Sex: Male : 1960 Arrival Date: 04/16/2020 Time: 15:29 Bed 18 Private MD: Diagnosis: Issa's palsy Presentation: 04/16 15:33 Chief complaint: Patient states: R ear pain that began last night. R sided Facial droop ss that began at 0900 this morning and has been getting progressively worse throughout the day. Coronavirus screen: Client denies travel out of the [place] in the last 14 days. At this time, the client does not indicate any symptoms associated with coronavirus-19. Ebola Screen: Patient denies exposure to infectious person. Patient denies travel to an Ebola-affected area in the 21 days before illness onset. Pre-hospital glucose is not applicable to this patient. Initial Sepsis Screen: Does the patient meet any 2 criteria? HR > 90 bpm. Does the patient have a suspected source of infection? No. Patient's initial sepsis screen is negative. Risk Assessment: Do you want to hurt yourself or someone else? Patient reports no desire to harm self or others. Onset of symptoms was April 16, 2020 at 09:00. 15:33 Method Of Arrival: Wheelchair ss 15:33 Acuity: HINA 3 ss 17:21 No acute neurological deficit is noted. jl7 Stroke Activation: Symptom onset > 6 hours Physician: Stroke Attending; Name: ; Notified At: ; Arrived At: Physician: Chief Stroke Resident; Name: ; Notified At: ; Arrived At: Physician: Stroke Resident; Name: ; Notified At: ; Arrived At: Physician: ED Attending; Name: ; Notified At: ; Arrived At: Physician: ED Resident; Name: ; Notified At: ; Arrived At: Historical: - Allergies: 15:35 No Known Allergies; ss - PMHx: 15:35 Alzheimers; early in dx 11/2018 (2019); Hypertension; ss - PSHx: 15:35 Knee surgery; L forearm; ss - Immunization history:: Adult Immunizations up to date. - Social history:: Smoking status: Patient denies any tobacco usage or history of. Patient/guardian denies using alcohol, street drugs. - Family history:: not pertinent. - Hospitalizations: : No recent hospitalization is reported. Screenin:36 Abuse screen: Denies threats or abuse. Denies injuries from another. Nutritional ss screening: No deficits noted. Tuberculosis screening: Never had TB. Fall Risk None identified. Assessment: 15:45 VAN Scoring: Arm Drift: Patients demonstrates NO arm weakness. Patient is VAN Negative. jl7 Patient has been NPO before screening. The patient is alert, and able to follow commands. The patient does not exhibit slurred or garbled speech. The patient is not exhibiting difficulty speaking. The patient does not exhibit difficulty understanding words. The patient is able to swallow own secretions with no drooling or need for suction. Patient tolerated one teaspoon of water. No drooling, immediate coughing, gurgling, or clearing of the throat was noted. The patient tolerated 90mL of water. No drooling, immediate coughing, gurgling, or clearing of the throat was noted. The patient passed the bedside swallow screening. Oral medications may be given as ordered. Contact Physician for further diet orders. Provider notified of bedside swallow screening results: Romie Vu MD. T-PA (Activase) Screening: Contraindications: Patient reports onset of signs and symptoms of stroke greater than 6 hours ago: Yes. 15:45 General: Appears in no apparent distress. uncomfortable, Behavior is calm, cooperative, jl7 appropriate for age. Pain: Denies pain. Neuro: Level of Consciousness is awake, alert, obeys commands, Oriented to person, place, time, situation. Cardiovascular: Denies chest pain, Patient's skin is warm and dry. Respiratory: Airway is patent Respiratory effort is even, unlabored, Respiratory pattern is regular, symmetrical, Denies shortness of breath. GI: No signs and/or symptoms were reported involving the gastrointestinal system. : No signs and/or symptoms were reported regarding the genitourinary system. EENT: No signs and/or symptoms were reported regarding the EENT system. Derm: Skin is pink, warm \T\ dry. Musculoskeletal: No signs and/or symptoms reported regarding the musculoskeletal system. 16:45 Reassessment: Patient appears in no apparent distress at this time. No changes from jl7 previously documented assessment. Patient and/or family updated on plan of care and expected duration. Pain level reassessed. Patient is alert, oriented x 3, equal unlabored respirations, skin warm/dry/pink. Vital Signs: 15:33 BP 158 / 81; Pulse 120; Resp 17; Temp 98.2(TE); Pulse Ox 99% on R/A; Weight 158.76 kg; ss Height 5 ft. 11 in. (180.34 cm); Pain 6/10; 16:45 BP 122 / 59; Pulse 86; Resp 15; Pulse Ox 97% ; jl7 15:33 Body Mass Index 48.81 (158.76 kg, 180.34 cm) ss NIH Stroke Scale Scores: 15:36 NIHSS Score: 3 ss 15:45 NIHSS Score: 2 jl7 ED Course: 15:29 Patient arrived in ED. ll1 15:29 Romie Vu MD is Attending Physician. rn 15:35 Triage completed. ss 15:35 Arm band placed on right wrist. ss 15:35 employee development manager on. Pulse ox on. NIBP on. jl7 15:36 Patient has correct armband on for positive identification. ss 15:50 Nina Sommers, DEMARCO is Primary Nurse. jl7 15:50 Inserted saline lock: 20 gauge in right antecubital area, using aseptic technique. ss Blood collected. 16:01 CT Head Brain wo Cont In Process Unspecified. EDMS 17:08 Keith Mendiola MD is Referral Physician. rn 17:21 No provider procedures requiring assistance completed. IV discontinued, intact, jl7 bleeding controlled, No redness/swelling at site. Pressure dressing applied. Administered Medications: 16:10 Drug: NS 0.9% 500 ml Route: IV; Rate: bolus; Site: right antecubital; jl7 16:58 Follow up: Response: No adverse reaction; IV Status: Completed infusion; IV Intake: jl7 500ml 16:58 Drug: Decadron - Dexamethasone 10 mg Route: IVP; Site: right antecubital; jl7 17:10 Follow up: Response: No adverse reaction jl7 Point of Care Testing: Blood Glucose: 15:30 Blood Glucose: 185 mg/dL; jl7 Ranges: Intake: 16:58 IV: 500ml; Total: 500ml. jl7 Outcome: 17:08 Discharge ordered by . rn 17:21 Discharged to home ambulatory. jl7 17:21 Condition: stable 17:21 Discharge instructions given to patient, family, Instructed on discharge instructions, follow up and referral plans. medication usage, Demonstrated understanding of instructions, follow-up care, medications, Prescriptions given X 2. 17:22 Patient left the ED. jl7 NIH Stroke Scale - NIH Stroke Score Date: 04/16/2020 Time: 15:36 Total Score = 3 1a. Level of Consciousness (LOC) - 0(Alert) 1b. Level of Consciousness (LOC) (Year \T\ Age) - 0(Both) 1c. LOC Commands (Open \T\ Closes Eyes/Sleeve Sewer) - 0(Both) 2. Best Gaze (Lateral Gaze Paresis) - 0(Normal) 3. Visual Field Loss - 0(No visual loss) 4. Facial Palsy - 3(Complete paralysis) 5a. Left Arm: Motor (10-second hold) - 0(No drift) 5b. Right Arm: Motor (10-second hold) - 0(No drift) 6a. Left Leg: Motor (5-second hold - always test supine) - 0(No drift) 6b. Right Leg: Motor (5-second hold - always test supine) - 0(No drift) 7. Limb Ataxia (finger/nose \T\ heel/helms - test with eyes open) - 0(Absent) 8. Sensory Loss (pinprick arms/legs/face) - 0(Normal) 9. Best Language: Aphasia (description/naming/reading) - 0(No aphasia) 10. Dysarthria (speech clarity - read or repeat words) - 0(Normal) 11. Extinction and Inattention (visual/tactile/auditory/spatial/personal) - 0(No abnormality) Initials: NIH Stroke Scale - NIH Stroke Score Date: 04/16/2020 Time: 15:45 Total Score = 2 1a. Level of Consciousness (LOC) - 0(Alert) 1b. Level of Consciousness (LOC) (Year \T\ Age) - 0(Both) 1c. LOC Commands (Open \T\ Closes Eyes/Sleeve Sewer) - 0(Both) 2. Best Gaze (Lateral Gaze Paresis) - 0(Normal) 3. Visual Field Loss - 0(No visual loss) 4. Facial Palsy - 1(Minor Paralysis) 5a. Left Arm: Motor (10-second hold) - 0(No drift) 5b. Right Arm: Motor (10-second hold) - 1(Drift) 6a. Left Leg: Motor (5-second hold - always test supine) - 0(No drift) 6b. Right Leg: Motor (5-second hold - always test supine) - 0(No drift) 7. Limb Ataxia (finger/nose \T\ heel/helms - test with eyes open) - 0(Absent) 8. Sensory Loss (pinprick arms/legs/face) - 0(Normal) 9. Best Language: Aphasia (description/naming/reading) - 0(No aphasia) 10. Dysarthria (speech clarity - read or repeat words) - 0(Normal) 11. Extinction and Inattention (visual/tactile/auditory/spatial/personal) - 0(No abnormality) Initials: jl7 Signatures: Dispatcher [employer] EDRomie Taylor MD MD rn Smirch, Shelby, RN RN ss Leal, Jahala, RN RN jl7 Aleida Whitehead RN RN ll1
--- NOTE | 2020-04-16 17:08 | EDPHYS ---
Physician Documentation [facility] Name: Luis Ryan Age: 59 yrs Sex: Male : 1960 Arrival Date: 04/16/2020 Time: 15:29 Bed 18 Private MD: ED Physician Romie Vu HPI: 04/16 15:38 This 59 yrs old Male presents to ER via Wheelchair with complaints of Facial rn Droop. 15:38 The patient presents to the emergency department with weakness of the right side of the rn face, that is moderate. Onset: The symptoms/episode began/occurred this morning. Associated signs and symptoms: Pertinent positives: weakness, Pertinent negatives: altered mental status, fever, neck stiffness, seizure, syncope, blurred vision, double vision, visual field changes, loss of vision. Severity of symptoms: At their worst the symptoms were moderate in the emergency department the symptoms are unchanged. The patient has not experienced similar symptoms in the past. Reports right ear pain since last night, this AM noticed right facial droop, eye involved as well, no head injury, no other focal neuro complaint. No hx of stroke. Otherwise feels ok. Feels like right eye is watery. . Historical: - Allergies: 15:35 No Known Allergies; ss - PMHx: 15:35 Alzheimers; early in dx 11/2018 (2019); Hypertension; ss - PSHx: 15:35 Knee surgery; L forearm; ss - Immunization history:: Adult Immunizations up to date. - Social history:: Smoking status: Patient denies any tobacco usage or history of. Patient/guardian denies using alcohol, street drugs. - Family history:: not pertinent. - Hospitalizations: : No recent hospitalization is reported. ROS: 15:38 Constitutional: Negative for fever, chills, and weight loss, Eyes: + watery right eye rn Neck: Negative for injury, pain, and swelling, Cardiovascular: Negative for chest pain, palpitations, and edema, Respiratory: Negative for shortness of breath, cough, wheezing, and pleuritic chest pain, Abdomen/GI: Negative for abdominal pain, nausea, vomiting, diarrhea, and constipation, MS/Extremity: Negative for injury and deformity, Skin: Negative for injury, rash, and discoloration, Neuro: Negative for headache, numbness, tingling, and seizure. Exam: 15:38 Constitutional: Overweight male, no acute distress Head/Face: Normocephalic, rn atraumatic. Eyes: PERRL, + clear watery discharge right eye with inability to completely close right eye. Cardiovascular: Tachycardic, regular Respiratory: No increased work of breathing, no retractions or nasal flaring. Abdomen/GI: Soft, non-tender Skin: Warm, dry MS/ Extremity: Pulses equal, no cyanosis. Neurovascular intact. Full, normal range of motion. Equal circumference. Neuro: Awake and alert, GCS 15, oriented to person, place, time, and situation. + right upp and lower facial weakness, moderate. Motor strength 5/5 in all extremities. Sensory grossly intact. Cerebellar exam normal. Normal gait. 17:07 ECG was reviewed by the Attending Physician. rn Vital Signs: 15:33 BP 158 / 81; Pulse 120; Resp 17; Temp 98.2(TE); Pulse Ox 99% on R/A; Weight 158.76 kg; ss Height 5 ft. 11 in. (180.34 cm); Pain 6/10; 16:45 BP 122 / 59; Pulse 86; Resp 15; Pulse Ox 97% ; jl7 15:33 Body Mass Index 48.81 (158.76 kg, 180.34 cm) ss NIH Stroke Scale Scores: 15:36 NIHSS Score: 3 ss 15:45 NIHSS Score: 2 jl7 MDM: 15:29 Patient medically screened. rn 17:07 Data reviewed: vital signs, nurses notes, lab test result(s), EKG, radiologic studies, rn CT scan, and as a result, I will discharge patient. Counseling: I had a detailed discussion with the patient and/or guardian regarding: the historical points, exam findings, and any diagnostic results supporting the discharge/admit diagnosis, lab results, radiology results, the need for outpatient follow up, to return to the emergency department if symptoms worsen or persist or if there are any questions or concerns that arise at home. 04/16 15:37 Order name: CBC with Diff; Complete Time: 16:14 rn 04/16 15:37 Order name: Basic Metabolic Panel; Complete Time: 16:14 rn 04/16 15:37 Order name: CT Head Brain wo Cont; Complete Time: 16:42 rn 04/16 15:37 Order name: Protime (+inr); Complete Time: 16:14 rn 04/16 15:37 Order name: Ptt, Activated; Complete Time: 16:14 rn 04/16 15:59 Order name: Glucose, Ancillary Testing; Complete Time: 16:14 EDMS 04/16 15:37 Order name: IV Start; Complete Time: 15:50 rn 04/16 15:38 Order name: EKG; Complete Time: 15:39 rn 04/16 15:38 Order name: EKG - Nurse/Tech; Complete Time: 15:50 rn EC:07 Rate is 108 beats/min. Rhythm is regular. QRS [place] is Normal. [place] interval is normal. rn QRS interval is normal. QT interval is normal. No Q waves. T waves are Normal. No ST changes noted. Clinical impression: Sinus tachycardia. Interpreted by me. Reviewed by me. Administered Medications: 16:10 Drug: NS 0.9% 500 ml Route: IV; Rate: bolus; Site: right antecubital; jl7 16:58 Follow up: Response: No adverse reaction; IV Status: Completed infusion; IV Intake: jl7 500ml 16:58 Drug: Decadron - Dexamethasone 10 mg Route: IVP; Site: right antecubital; jl7 17:10 Follow up: Response: No adverse reaction jl7 Point of Care Testing: Blood Glucose: 15:30 Blood Glucose: 185 mg/dL; jl7 Ranges: Critical Glucose Levels:Adult <50 mg/dl or >400 mg/dl <40 mg/dl or >180 mg/dl Disposition: 04/16/20 17:08 Discharged to Home. Impression: Issa's palsy. - Condition is Stable. - Discharge Instructions: Issa Palsy, Adult. - Prescriptions for Acyclovir 400 mg Oral Tablet - take 1 tablet by ORAL route every 8 hours for 5 days; 15 tablet. Prednisone 20 mg Oral Tablet - take 1 tablet by ORAL route as directed for 10 days Take 3 tablets by mouth daily for 5 days, followed by 2 tablets by mouth dialy for 3 days, followed by 1 tablet by mouth daily for 2 days.; 23 tablet. - Medication Reconciliation Form, Thank You Letter, Antibiotic Education, Prescription Opioid Use form. - Follow up: Keith Mendiola MD; When: As needed; Reason: Recheck today's complaints, Re-evaluation by your physician. - Problem is new. - Symptoms are unchanged. NIH Stroke Scale - NIH Stroke Score Date: 04/16/2020 Time: 15:36 Total Score = 3 1a. Level of Consciousness (LOC) - 0(Alert) 1b. Level of Consciousness (LOC) (Year \T\ Age) - 0(Both) 1c. LOC Commands (Open \T\ Closes Eyes/Sas Statistical Programmer) - 0(Both) 2. Best Gaze (Lateral Gaze Paresis) - 0(Normal) 3. Visual Field Loss - 0(No visual loss) 4. Facial Palsy - 3(Complete paralysis) 5a. Left Arm: Motor (10-second hold) - 0(No drift) 5b. Right Arm: Motor (10-second hold) - 0(No drift) 6a. Left Leg: Motor (5-second hold - always test supine) - 0(No drift) 6b. Right Leg: Motor (5-second hold - always test supine) - 0(No drift) 7. Limb Ataxia (finger/nose \T\ heel/helms - test with eyes open) - 0(Absent) 8. Sensory Loss (pinprick arms/legs/face) - 0(Normal) 9. Best Language: Aphasia (description/naming/reading) - 0(No aphasia) 10. Dysarthria (speech clarity - read or repeat words) - 0(Normal) 11. Extinction and Inattention (visual/tactile/auditory/spatial/personal) - 0(No abnormality) Initials: NIH Stroke Scale - NIH Stroke Score Date: 04/16/2020 Time: 15:45 Total Score = 2 1a. Level of Consciousness (LOC) - 0(Alert) 1b. Level of Consciousness (LOC) (Year \T\ Age) - 0(Both) 1c. LOC Commands (Open \T\ Closes Eyes/Sas Statistical Programmer) - 0(Both) 2. Best Gaze (Lateral Gaze Paresis) - 0(Normal) 3. Visual Field Loss - 0(No visual loss) 4. Facial Palsy - 1(Minor Paralysis) 5a. Left Arm: Motor (10-second hold) - 0(No drift) 5b. Right Arm: Motor (10-second hold) - 1(Drift) 6a. Left Leg: Motor (5-second hold - always test supine) - 0(No drift) 6b. Right Leg: Motor (5-second hold - always test supine) - 0(No drift) 7. Limb Ataxia (finger/nose \T\ heel/helms - test with eyes open) - 0(Absent) 8. Sensory Loss (pinprick arms/legs/face) - 0(Normal) 9. Best Language: Aphasia (description/naming/reading) - 0(No aphasia) 10. Dysarthria (speech clarity - read or repeat words) - 0(Normal) 11. Extinction and Inattention (visual/tactile/auditory/spatial/personal) - 0(No abnormality) Initials: jl7 Signatures: Dispatcher [employer] EDMS Romie Vu MD MD rn Smirch, Shelby, RN RN ss Leal, Jahala, RN RN jl7 Corrections: (The following items were deleted from the chart) 17:22 17:08 04/16/2020 17:08 Discharged to Home. Impression: Issa's palsy. Condition jl7 is Stable. Forms are Medication Reconciliation Form, Thank You Letter, Antibiotic Education, Prescription Opioid Use. Follow up: Keith Mendiola; When: As needed; Reason: Recheck today's complaints, Re-evaluation by your physician. Problem is new. Symptoms are unchanged. rn
[2020-04-16 17:39] VITALS: TEMP 98.2
[2020-04-16 17:40] VITALS: BP 122/59; O2SAT 97
== END 2020-04-16 17:22 | disposition home or self-care (01) ==
LOC: ER 15:24
DX: G51.0 Bell's palsy (principal); I10 Essential (primary) hypertension; G30.9 Alzheimer's disease, unspecified; F02.80 Dementia in other diseases classified elsewhere, unspecified severity, without behavioral disturbance, psychotic disturbance, mood disturbance, and anxiety
CPT/HCPCS: 96361; 93005; 85025; 80048; 36415; 85610; 82947; 85730; 70450; 96374; 99284; J1100; J7040

== ENCOUNTER 2023-06-08 19:35 | Emergency (ER) | payer MEDICARE ==
--- OUTSIDE RECORDS SUMMARY | 2023-06-08 19:44 | XMS REPORT | Continuity of Care Document ---
:[address] [facility] [place], [place] t Address [address] [facility]. [address] [place] [address] Care Team Providers Name Role Phone Aram Staples MD Primary Care Physician SERJIO BURTON Attending Clinician Unavailable KIRSTY VICENTE Attending Clinician Unavailable KIRSTY VICENTE Attending Clinician Unavailable CORAZON AMBROSE Attending Clinician Unavailable Aram Staples MD Attending Clinician ARAM STAPLES Attending Clinician Unavailable ROSANA VASQUEZ Attending Clinician Unavailable Doctor Unassigned, [place] Attending Clinician Unavailable Corazon Leija Attending Clinician Mike Carter MD Attending Clinician SERGO GRANADOS Attending Clinician Unavailable Sergo Granados MD Attending Clinician Kirsty Vicente MD Attending Clinician Kay, Shantanu Peoples Attending Clinician Unavailable EULALIO ESPINOZA Attending Clinician Unavailable ESTELLE HOOVER Attending Clinician Unavailable Keith Mendiola Attending Clinician Estelle Hoover PA-C Attending Clinician Abdiaziz Tovar Attending Clinician ABDIAZIZ JARAMILLO Attending Clinician Unavailable Shantanu Velazquez Attending Clinician Unavailable Katia, Shantanu Peoples Cbc Fam Attending Clinician Unavailable Eryn Saavedra Attending Clinician ADRIANNE, ERYN A Attending Clinician Unavailable VIRGIL SIMS Attending Clinician Unavailable Serjio Burton MD Attending Clinician Nurse, Adc General Surgery Attending Clinician Unavailable Sherie Betancourt Attending Clinician Lab, Adc Fam Pob I Attending Clinician Unavailable Eulalio Hernandez Attending Clinician Shraddha Sheikh MD Attending Clinician SERJIO BURTON Admitting Clinician Unavailable ROSANA VASQUEZ Admitting Clinician Unavailable Serjio Burton MD Admitting Clinician Payers Payer Name Policy Type Policy Number Effective Date Expiration Date Rolando cain JOSEMICHAEL/ANGELICA [id number] 2019 MEDICARE ADVANTAGE 00:00:00 Problems Condition Condition Condition Status Onset Resolution Last Treating Co mments Source Name Details Category Date Date Treatment Clinician Date Allergy, Allergy, Disease Active 2021-08 Unive rs subsequent subsequent 0-07 [place] Acute Acute Disease Active [facility] non-recurr non-recurr 9-30 it y of ent ent 00:00: [place] maxillary maxillary 00 Medi itz sinusitis sinusitis Bran ch Sleep Sleep Disease Active Univers apnea, apnea, 6-09 ity of unspecifie unspecifie 00[place] d type d type 00 Medical Branch Urinary Urinary Disease Active Univers retention retention 5-05 ity of with with 00:00: [place] incomplete incomplete 00 Me dical bladder bladder Branch emptying emptying Right Right Disease Active Overview: Ej s inguinal inguinal 3-04 Formattin ity of hernia hernia 00:00: g of this [place] 00 note Medical might be Branch different from the original. Added automatic ally from request for surgery [id number] Class 3 Class 3 Disease Active Univers severe severe 2-10 ity of obesity obesity 00:00: [place] without without 00 Medical serious serious Branch comorbidit comorbidit y with y with body mass body mass index index (BMI) of (BMI) of 40.0 to 40.0 to 44.9 in 44.9 in adult, adult, unspecifie unspecifie d obesity d obesity type type Obesity Obesity Disease Active Univers (BMI (BMI 5-24 ity of 30-39.9) 30-39.9) 00:00: [place] 00 Medical Branch Compressio Compressio Disease Active U nivers n fracture n fracture 5-08 it y of of lumbar of lumbar 00:[place] vertebra vertebra 00 Medica l Branch Morbid Morbid Disease Active Univers obesity obesity 5-08 ity of with body with body 00:[place] mass index mass index 00 Me dical of of Branch 40.0-49.9 40.0-49.9 Cervical Cervical Problem Active 2022-08-08 Memoria radiculopa radiculopa 8-12 12:27:57 l thy thy 00:00: [place] (disorder) (disorder) 00 Active 03/12/2016 Problem 08/08/2022 [facility] Lesion of Lesion of Problem Active 2022-08-08 Memoria ulnar ulnar 8-12 12:27:57 l nerve nerve 00:00: [place] (disorder) (disorder) 00 Active 03/12/2016 Problem 08/08/2022 [facility] Spinal Spinal Problem Active 2022-08-[address] [facility] stenosis stenosis 6-16 12:27:57 l in in 00:00: [place] cervical cervical 00 region region (disorder) (disorder) Active 01/15/2016 Problem 08/08/2022 [facility] Lumbosacra Problem Active 2022-08-08 M emoria l Lumbosacra 5-11 12:27:57 l spondylosi l 00:00: [place] without spondylosi 00 myelopathy s without (disorder) myelopathy (disorder) Active 12/10/2015 Problem 08/08/2022 [facility] Lumbar Lumbar Problem Active 2022-08-08 Hugh natalia radiculopa radiculopa 4-29 12:27:57 l thy thy 00:00: [place] (disorder) (disorder) 00 Active 11/28/2015 Problem 08/08/2022 [facility] Essential Essential Problem Active 2022-08-08 Memoria hypertensi hypertensi 4-14 12:27:57 l on on 00:00: [place] (disorder) (disorder) 00 Active 11/13/2015 Problem 08/08/2022 [facility] Muscle Muscle Problem Active 2022-08-08 [facility] nat[place] pain pain 4-14 12:27:57 l (finding) (finding) 00:00: Herm marivel Active 00 11/13/2015 Problem 08/08/2022 [facility] Paresthesi Paresthes Problem Active 2022-08-08 Memoria a ia 4-14 12:27:57 l (finding) (finding) 00:00: [place] marivel Active 00 11/13/2015 Problem 08/08/2022 [facility] Tremor Tremor Problem Active 2022-08-08 [place] natalia (finding) (finding) 4-14 12:27:57 l Active 00:00: [place] 11/13/2015 00 Problem 08/08/2022 [facility] Edema Edema Disease Active 2014-08 Univers 1-12 ity of 00:00: 00 Medical Branch Edema Edema Disease Active 2014-08 Univers 1-12 ity of 00:00: 00 Medical Branch Osteoarthr Osteoarthr Disease Active 2014-08 U joelers itis itis 1-12 ity of 00:00: 00 Medical Branch Internal Internal Disease Active 2014-08 Unive rs derangemen derangemen 1-12 it y of t of knee t of [place] 00:[place] involving involving 00 Medi itz lateral lateral Branch meniscus meniscus Erectile Erectile Disease Active 2014-08 Unive rs dysfunctio dysfunctio 1-12 it y of n n 00:00: 00 Medical Branch Knee joint Knee joint Disease Active 2014-08 U nivers replacemen replacemen 0-30 it y of t status t status 00:00: 00 Medical Branch Chronic Chronic Disease Active 2014-08 Univers pain pain 0-30 ity of 00:00: [place] 00 Medical Branch Essential Essential Disease Active 2014-08 Uni vers hypertensi hypertensi 0-30 it y of on on 00:00: Medical Branch Knee joint Knee joint Disease Active 2014-08 U nivers replacemen replacemen 0-30 it y of t status t status 00:00: [place] [address] Medical Branch 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 12:27:57 l (disorder) (disorder) Nito rmann Active Problem 08/08/2022 [facility] Dementia Dementia Problem Active 2022-08-08 Memoria (disorder) (disorder) 12:27:57 l Active [place] Problem 08/08/2022 [facility] Hypertensi Problem Active 2022-08-08 M emoria ve Hypertensi 12:27:57 l disorder, ve [place] systemic disorder, arterial systemic (disorder) arterial (disorder) Active Problem 08/08/2022 [facility] Hyperlipid Hyperlipi Problem Active 2022-08-08 Memoria emia demia 12:27:57 l (disorder) (disorder) Nito rmann Active Problem 08/08/2022 [facility] Neuropathy Neuropath Problem Active 2022-08-08 Memoria (disorder) y 12:27:57 l (disorder) John n Active Problem 08/08/2022 [facility] Amnesia Amnesia Problem Resolve 2016-2021-08-08 2021-08-08 Memoria (finding) (finding) d 4-14 03:05:01 03:05:01 l Resolved 00:00: [place] 11/13/2015 00 Problem 08/08/2021 [facility] Allergies, Adverse Reactions, Alerts Allergy Allergy Status Severity Reaction(s) Onset Inactive Treating Comm ents Source Name Type Date Date Clinician No Known No Known Active Memori a Medicati Medicati l on on [place] Allergie Allergie s s NO KNOWN Drug Active Univers ALLERGIE Class ity of [facility] Social History Social Habit Start Date Stop Date Quantity Comments Source History of tobacco Snuff User Univer sity of use [facility] Gender identity Universit y [place] [facility] Sexual orientation [facility] Alcohol intake 2023-06-08 2023-06-08 Current University of 00:00:00 00:00:00 [facility]drinker of [facility] alcohol Branch (finding) History of Social 2023-02-23 2023-02-23 Univers ity of function 00:00:00 00:00:00 [facility] Exposure to 2022-10-15 2022-10-25 Not sure University SARS-CoV-2 (event) 00:00:00 08:26:00 [facility] Tobacco Comment 2022-04-29 2022-04-29 quit dipping a Unive rsity of 00:00:00 00:00:00 year ago [facility] Tobacco use and 2022-04-29 2022-04-29 Former smokeless Uni versity of exposure 00:00:00 00:00:00 tobacco user [facility] l [place] Sex Ass[birth year] At [birth year] Universit y of 00:00:00 00:00:00 [facility] Smoking Status Start Date Stop Date Source Tobacco smoking status [facility] [facility] Medications Ordered Filled Start Stop Current Ordering Indication Dosage Frequency Signature Comments Components Source Medication Medication Date Date Medication? Clinician (SIG) Name Name morpHINE (2022-08 Yes 4mg 4 mg, Slow Univers mg/mL) 08-03 IV Push, ity of injection 4 03:32: Q4HPRN, [place] mg 51 Starting Medical on [facility] 06/02/23 at 2232, Until Discontinu ed, Routine, Pain (scale 7-10) iopamidol 2022-08- No [id number] 100mL 100 mL, Univers (ISOVUE 08-03 Intravenou ity o f 370-500 mL) 03:00: 03:00 s, ONCE, 1 [place] injection 00 :00 dose, On Medica l 100 mL [facility] 06/02/23 at 2200, Routine ondansetron 2022-08- No 4mg 4 mg, Slow Univers (ZOFRAN 08-03 IV Push, ity of (PF)) 01:30: 01:37 ONCE, 1 [place] injection 4 00 :00 dose, On Medi itz mg [facility] 06/02/23 at 2030, BHARGAVI morpHINE (2022-08- No 4mg 4 mg, Slow Univers mg/mL) 08-03 IV Push, ity of injection 4 01:26: 03:33 Q4HPRN, [place] mg 21 :08 Starting Medical on [facility] Branch 06/02/23 at 6, Until Melanie 06/02/23 at 2233, Routine, Pain (scale 7-10) sodium 2022-08 Yes 5mL 5 mL, Univers chloride 08-03 Intravenou ity o f (NS) 00:52: s, PRN, [place] injection 5 17 Starting Medi itz mL on Melanie Branch 06/02/23 at 1952, Until Discontinu ed, Routine, IV line flushing tamsulosin 2022-08 Yes [id number] .4mg Take 1 Univers 0.4 mg 24 08-02 9102 capsule by ity of hr capsule 00:00: mouth in [place] 00 the Medical morning Branch and 1 capsule in the evening. tamsulosin 2022-08 Yes [id number] .4mg Take 1 Univers 0.4 mg 24 08-02 9102 capsule by ity of hr capsule 00:00: mouth in [place] 00 the Medical morning Branch and 1 capsule in the evening. tamsulosin 2022-08 Yes [id number] .4mg Take 1 Univers 0.4 mg 24 08-02 9102 capsule by ity of hr capsule 00:00: mouth in [place] 00 the Medical morning Branch and 1 capsule in the evening. tamsulosin 2022-08 Yes [id number] .4mg Take 1 Univers 0.4 mg 24 08-02 9102 capsule by ity of hr capsule 00:00: mouth in [place] 00 the Medical morning Branch and 1 capsule in the evening. tamsulosin 2022-08 Yes [id number] .4mg Take 1 Univers 0.4 mg 24 08-02 9102 capsule by ity of hr capsule 00:00: mouth in [place] 00 the Medical morning Branch and 1 capsule in the evening. docusate 2022-08- Yes [id number] 250mg Take 1 U nivers sodium 250 08-02 capsule by it y of mg capsule 00:00: 05:59 [place] in [place] :00 the Medical morning Branch for 30 days. docusate 2022-08- Yes [id number] 250mg Take 1 U nivers sodium 250 08-02 capsule by it y of mg capsule 00:00: 05:59 [place] in [place] :00 the Medical morning Branch for 30 days. docusate 2022-08- Yes [id number] 250mg Take 1 U nivers sodium 250 08-02 capsule by it y of mg capsule 00:00: 05:59 [place] in [place] 00 :00 the [facility] for 30 days. LISINOPRIL- 2022-08 Yes [id number] TAKE 1 Univers HYDROCHLORO 0-23 TABLET BY ity of THIAZIDE 00:00: MOUTH ONCE [place] as 20-12.5 mg 00 DAILY IN Medic al per tablet THE [place] MORNING - PATIENT NEEDS APPOINTMEN T FOR FUTURE REFILLS LISINOPRIL- 2022-08 Yes [id number] TAKE 1 Univers HYDROCHLORO 0-23 TABLET BY ity of THIAZIDE 00:00: MOUTH ONCE [place] 20-12.5 mg 00 DAILY IN Medic al per tablet THE [place] MORNING - PATIENT NEEDS APPOINTMEN T FOR FUTURE REFILLS LISINOPRIL- 2022-08 Yes [id number] TAKE 1 Univers HYDROCHLORO 0-23 TABLET BY ity of THIAZIDE 00:00: MOUTH ONCE [place] 20-12.5 mg 00 DAILY IN Medic al per tablet THE [place] MORNING - PATIENT NEEDS APPOINTMEN T FOR FUTURE REFILLS LISINOPRIL- 2022-08 Yes [id number] TAKE 1 Univers HYDROCHLORO 0-23 TABLET BY ity of THIAZIDE 00:00: MOUTH ONCE [place] 20-12.5 mg 00 DAILY IN Medic al per tablet THE [place] MORNING - PATIENT NEEDS APPOINTMEN T FOR FUTURE REFILLS LISINOPRIL- 2022-08 Yes [id number] TAKE 1 Univers HYDROCHLORO 0-23 TABLET BY ity of THIAZIDE 00:00: MOUTH ONCE [place] 20-12.5 mg 00 DAILY IN Medic al per tablet THE [place] MORNING - PATIENT NEEDS APPOINTMEN T FOR FUTURE REFILLS LISINOPRIL- 2022-08 Yes [id number] TAKE 1 Univers HYDROCHLORO 0-23 TABLET BY ity of THIAZIDE 00:00: MOUTH ONCE [place] as 20-12.5 mg 00 DAILY IN Medic al per tablet THE [place] MORNING - PATIENT NEEDS APPOINTMEN T FOR FUTURE REFILLS MONTELUKAST 2022-08 Yes [id number] 10mg TAKE 1 Univers 10 mg 0-02 TABLET BY ity of tablet 00:00: MOUTH IN [place] 00 THE [facility] MONTELUKAST 2022-08 Yes [id number] 10mg TAKE 1 Univers 10 mg 0-02 TABLET BY ity of tablet 00:00: MOUTH IN [place] 00 THE Medical MORNING Branch tamsulosin 2022-08 Yes [id number] .4mg Take 1 Univers 0.4 mg 24 0-02 9102 capsule by ity of hr capsule 00:00: mouth in [place] 00 the Medical morning Branch and 1 capsule in the evening. MONTELUKAST 2022-08 Yes [id number] 10mg TAKE 1 Univers 10 mg 0-02 TABLET BY ity of tablet 00:00: MOUTH IN [place] 00 THE Medical MORNING Branch tamsulosin 2022-08 Yes [id number] .4mg Take 1 Univers 0.4 mg 24 0-02 9102 capsule by ity of hr capsule 00:00: mouth in [place] 00 the Medical morning Branch and 1 capsule in the evening. MONTELUKAST 2022-08 Yes [id number] 10mg TAKE 1 Univers 10 mg 0-02 TABLET BY ity of tablet 00:00: MOUTH IN [place] 00 THE [facility] MORNING Branch tamsulosin 2022-08 Yes [id number] .4mg Take 1 Univers 0.4 mg 24 0-02 9102 capsule by ity of hr capsule 00:00: mouth in [place] 00 the Medical morning Branch and 1 capsule in the evening. MONTELUKAST 2022-08 Yes [id number] 10mg TAKE 1 Univers 10 mg 0-02 TABLET BY ity of tablet 00:00: MOUTH IN [place] 00 THE [facility] MORNING Branch MONTELUKAST 2022-08 Yes [id number] 10mg TAKE 1 Univers 10 mg 0-02 TABLET BY ity of tablet 00:00: MOUTH IN [place] 00 THE Medical MORNING Branch MONTELUKAST 2022-08 Yes [id number] 10mg TAKE 1 Univers 10 mg 0-02 TABLET BY ity of tablet 00:00: MOUTH IN [place] 00 THE Medical MORNING Branch MONTELUKAST 2022-08 Yes [id number] 10mg TAKE 1 Univers 10 mg 0-02 TABLET BY ity of tablet 00:00: MOUTH IN [place] 00 THE Medical MORNING Branch MONTELUKAST 2022-08 Yes [id number] 10mg TAKE 1 Univers 10 mg 0-02 TABLET BY ity of tablet 00:00: MOUTH IN [place] 00 THE [facility] MORNING Branch tamsulosin 2022-08- No [id number] .4mg Take 1 Univers 0.4 mg 24 0-02 11- 9102 capsule by ity of hr capsule 00:00: 00:00 mouth in [place] 00 :00 the Medical morning Branch and 1 capsule in the evening. HYDROCHLORO 2022-0 Yes [id number] Take 1 Univers THIAZIDE 25 8-21 tablet by ity of mg tablet 00:00: mouth once [place] daily Medical Branch ATORVASTATI 3-0 Yes [id number] 20mg TAKE 1 Univers N 20 mg 8-21 TABLET BY ity of tablet 00:00: MOUTH AT [address] Medical Branch HYDROCHLORO 3-0 Yes [id number] Take 1 Univers THIAZIDE 25 8-21 tablet by ity of mg tablet 00:00: mouth once [place] daily Medical Branch ATORVASTATI 2022-0 Yes [id number] 20mg TAKE 1 Univers N 20 mg 8-21 TABLET BY ity of tablet 00:00: MOUTH AT [address] Medical Branch HYDROCHLORO 2022-0 Yes [id number] Take 1 Univers THIAZIDE 25 8-21 tablet by ity of mg tablet 00:00: mouth once [place] daily Medical Branch ATORVASTATI 2022-0 Yes [id number] 20mg TAKE 1 Univers N 20 mg 8-21 TABLET BY ity of tablet 00:00: MOUTH AT [address] Branch HYDROCHLORO 2022-0 Yes [id number] Take 1 Univers THIAZIDE 25 8-21 tablet by ity of mg tablet 00:00: mouth once [place] daily Medical Branch ATORVASTATI 2022-0 Yes [id number] 20mg TAKE 1 Univers N 20 mg 8-21 TABLET BY ity of tablet 00:00: MOUTH AT [address] Branch HYDROCHLORO 3-0 Yes [id number] Take 1 Univers THIAZIDE 25 8-21 tablet by ity of mg tablet 00:00: mouth once [place] daily Medical Branch ATORVASTATI 2022-0 Yes [id number] 20mg TAKE 1 Univers N 20 mg 8-21 TABLET BY ity of tablet 00:00: MOUTH AT [address] Branch HYDROCHLORO 2022-0 Yes [id number] Take 1 Univers THIAZIDE 25 8-21 tablet by ity of mg tablet 00:00: mouth once [place] daily Medical Branch ATORVASTATI 2022-0 Yes [id number] 20mg TAKE 1 Univers N 20 mg 8-21 TABLET BY ity of tablet 00:00: MOUTH AT [place] [facility] Branch HYDROCHLORO 2023-0 Yes [id number] Take 1 Univers THIAZIDE 25 8-21 tablet by ity of mg tablet 00:00: mouth once [place] daily Medical Branch ATORVASTATI 3-0 Yes [id number] 20mg TAKE 1 Univers N 20 mg 8-21 TABLET BY ity of tablet 00:00: MOUTH AT [address] Medical Branch HYDROCHLORO 3-0 Yes [id number] Take 1 Univers THIAZIDE 25 8-21 tablet by ity of mg tablet 00:00: mouth once [place] daily Medical Branch ATORVASTATI 2022-0 Yes [id number] 20mg TAKE 1 Univers N 20 mg 8-21 TABLET BY ity of tablet 00:00: MOUTH AT [address] Medical Branch HYDROCHLORO 2022-0 Yes [id number] Take 1 Univers THIAZIDE 25 8-21 tablet by ity of mg tablet 00:00: mouth once [place] daily Medical Branch ATORVASTATI 2022-0 Yes [id number] 20mg TAKE 1 Univers N 20 mg 8-21 TABLET BY ity of tablet 00:00: MOUTH AT [address] Medical Branch HYDROCHLORO 2022-0 Yes [id number] Take 1 Univers THIAZIDE 25 8-21 tablet by ity of mg tablet 00:00: mouth once [place] daily Medical Branch ATORVASTATI 2022-0 Yes [id number] 20mg TAKE 1 Univers N 20 mg 8-21 TABLET BY ity of tablet 00:00: MOUTH AT [address] Medical Branch HYDROCHLORO 3-0 Yes [id number] Take 1 Univers THIAZIDE 25 8-21 tablet by ity of mg tablet 00:00: mouth once [place] daily Medical Branch ATORVASTATI 3-0 Yes [id number] 20mg TAKE 1 Univers N 20 mg 8-21 TABLET BY ity of tablet 00:00: MOUTH AT [address] Medical Branch HYDROCHLORO 2022-0 Yes [id number] Take 1 Univers THIAZIDE 25 8-21 tablet by ity of mg tablet 00:00: mouth once [place] daily Medical Branch ATORVASTATI 2022-0 Yes [id number] 20mg TAKE 1 Univers N 20 mg 8-21 TABLET BY ity of tablet 00:00: MOUTH AT [place] 00 BEDTIME Medical Branch HYDROCHLORO 2023-0 Yes [id number] Take 1 Univers THIAZIDE 25 8-21 tablet by ity of mg tablet 00:00: mouth once [place] 00 daily Medical Branch ATORVASTATI 3-0 Yes [id number] 20mg TAKE 1 Univers N 20 mg 8-21 TABLET BY ity of tablet 00:00: MOUTH AT [place] [address] BEDTIME Medical Branch tamsulosin 2023-0 Yes [id number] .4mg Take 1 Univers 0.4 mg 24 7- 9102 capsule by ity of hr capsule 00:00: mouth in [place] 00 the Medical morning Branch and 1 capsule in the evening. tamsulosin 2023-0 Yes [id number] .4mg Take 1 Univers 0.4 mg 24 7- 9102 capsule by ity of hr capsule 00:00: mouth in [place] 00 the Medical morning Branch and 1 capsule in the evening. tamsulosin 2023-0 Yes [id number] .4mg Take 1 Univers 0.4 mg 24 02-28 9102 capsule by ity of hr capsule 00:00: mouth in [place] 00 the Medical morning Branch and 1 capsule in the evening. tamsulosin 2023-0 Yes [id number] .4mg Take 1 Univers 0.4 mg 24 02-28 9102 capsule by ity of hr capsule 00:00: mouth in [place] 00 the Medical morning Branch and 1 capsule in the evening. tamsulosin 2023-0 Yes [id number] .4mg Take 1 Univers 0.4 mg 24 - 9102 capsule by ity of hr capsule 00:00: mouth in [place] 00 the Medical morning Branch and 1 capsule in the evening. tamsulosin 2023-0 Yes [id number] .4mg Take 1 Univers 0.4 mg 24 - 9102 capsule by ity of hr capsule 00:00: mouth in [place] 00 the Medical morning Branch and 1 capsule in the evening. tamsulosin 2023-0 Yes [id number] .4mg Take 1 Univers 0.4 mg 24 7- 9102 capsule by ity of hr capsule 00:00: mouth in [place] 00 the Medical morning Branch and 1 capsule in the evening. tamsulosin 2023-0 Yes [id number] .4mg Take 1 Univers 0.4 mg 24 7- 9102 capsule by ity of hr capsule 00:00: mouth in [place] 00 the Medical morning Branch and 1 capsule in the evening. tamsulosin 2023-0 Yes [id number] .4mg Take 1 Univers 0.4 mg 02-28 9102 capsule by ity of hr capsule 00:00: mouth in [place] 00 the Medical morning Branch and 1 capsule in the evening. tamsulosin 2023-0 Yes [id number] .4mg Take 1 Univers 0.4 mg 02-28 9102 capsule by ity of hr capsule 00:00: mouth in [place] 00 the Medical morning Branch and 1 capsule in the evening. tamsulosin 2023-0 Yes [id number] .4mg Take 1 Univers 0.4 mg 02-28 9102 capsule by ity of hr capsule 00:00: mouth in [place] 00 the Medical morning Branch and 1 capsule in the evening. tamsulosin 2023-0 Yes [id number] .4mg Take 1 Univers 0.4 mg 02-28 9102 capsule by ity of hr capsule 00:00: mouth in [place] 00 the Medical morning Branch and 1 capsule in the evening. tamsulosin 2023-0 2023- No [id number] .4mg Take 1 Univers 0.4 mg 02-28 9102 capsule by ity of hr capsule 00:00: 00:00 mouth in [place] :00 the Medical morning Branch and 1 capsule in the evening. tamsulosin 2023-0 2023- No [id number] .4mg Take 1 Univers 0.4 mg 02-28 9102 capsule by ity of hr capsule 00:00: 00:00 mouth in [place] :00 the Medical morning Branch and 1 capsule in the evening. LISINOPRIL- 2023-0 Yes [id number] TAKE 1 Univers HYDROCHLORO 7-24 TABLET BY ity of THIAZIDE 00:00: MOUTH IN [place] 20-12.5 mg 00 THE Medical per tablet MORNING Branch PATIENT NEEDS APPOINTMEN T FOR FUTURE REFILLS LISINOPRIL- 2023-0 Yes [id number] TAKE 1 Univers HYDROCHLORO 7-24 TABLET BY ity of THIAZIDE 00:00: MOUTH IN [place] 20-12.5 mg 00 THE Medical per tablet MORNING Branch PATIENT NEEDS APPOINTMEN T FOR FUTURE REFILLS LISINOPRIL- 2023-0 Yes [id number] TAKE 1 Univers HYDROCHLORO 7-24 TABLET BY ity of THIAZIDE 00:00: MOUTH IN [place] 20-12.5 mg 00 THE Medical per tablet MORNING Branch PATIENT NEEDS APPOINTMEN T FOR FUTURE REFILLS LISINOPRIL- 2023-0 Yes [id number] TAKE 1 Univers HYDROCHLORO 7-24 TABLET BY ity of THIAZIDE 00:00: MOUTH IN [place] 20-12.5 mg 00 THE Medical per tablet MORNING Branch PATIENT NEEDS APPOINTMEN T FOR FUTURE REFILLS LISINOPRIL- 2023-0 Yes [id number] TAKE 1 Univers HYDROCHLORO 7-24 TABLET BY ity of THIAZIDE 00:00: MOUTH IN [place] 20-12.5 mg 00 THE Medical per tablet MORNING Branch PATIENT NEEDS APPOINTMEN T FOR FUTURE REFILLS LISINOPRIL- 2023-0 Yes [id number] TAKE 1 Univers HYDROCHLORO 7-24 TABLET BY ity of THIAZIDE 00:00: MOUTH IN [place] 20-12.5 mg 00 THE Medical per tablet MORNING Branch PATIENT NEEDS APPOINTMEN T FOR FUTURE REFILLS LISINOPRIL- 2023-0 Yes [id number] TAKE 1 Univers HYDROCHLORO 7-24 TABLET BY ity of THIAZIDE 00:00: MOUTH IN [place] 20-12.5 mg 00 THE Medical per tablet MORNING Branch PATIENT NEEDS APPOINTMEN T FOR FUTURE REFILLS LISINOPRIL- 2023-0 Yes [id number] TAKE 1 Univers HYDROCHLORO 7-24 TABLET BY ity of THIAZIDE 00:00: MOUTH IN [place] 20-12.5 mg 00 THE Medical per tablet MORNING Branch PATIENT NEEDS APPOINTMEN T FOR FUTURE REFILLS LISINOPRIL- 2023-0 Yes [id number] TAKE 1 Univers HYDROCHLORO 7-24 TABLET BY ity of THIAZIDE 00:00: MOUTH IN [place] 20-12.5 mg 00 THE Medical per tablet MORNING Branch PATIENT NEEDS APPOINTMEN T FOR FUTURE REFILLS LISINOPRIL- 2023-0 Yes [id number] TAKE 1 Univers HYDROCHLORO 7-24 TABLET BY ity of THIAZIDE 00:00: MOUTH IN [place] 20-12.5 mg 00 THE Medical per tablet MORNING Branch PATIENT NEEDS APPOINTMEN T FOR FUTURE REFILLS LISINOPRIL- 2023-0 Yes [id number] TAKE 1 Univers HYDROCHLORO 7-24 TABLET BY ity of THIAZIDE 00:00: MOUTH IN [place] 20-12.5 mg 00 THE Medical per tablet MORNING Branch PATIENT NEEDS APPOINTMEN T FOR FUTURE REFILLS LISINOPRIL- 2023-0 Yes [id number] TAKE 1 Univers HYDROCHLORO 7-24 TABLET BY ity of THIAZIDE 00:00: MOUTH IN [place] 20-12.5 mg 00 THE Medical per tablet MORNING Branch PATIENT NEEDS APPOINTMEN T FOR FUTURE REFILLS LISINOPRIL- 2023-0 Yes [id number] TAKE 1 [facility] HYDROCHLORO 7-24 TABLET BY ity of THIAZIDE 00:00: MOUTH IN [place] 20-12.5 mg 00 THE Medical per tablet MORNING Branch PATIENT NEEDS APPOINTMEN T FOR FUTURE REFILLS LISINOPRIL- 2023-0 Yes [id number] TAKE 1 [facility] HYDROCHLORO 7-24 TABLET BY ity of THIAZIDE 00:00: MOUTH IN [place] 20-12.5 mg 00 THE Medical per tablet MORNING Branch PATIENT NEEDS APPOINTMEN T FOR FUTURE REFILLS LISINOPRIL- 2023-0 Yes [id number] TAKE 1 [facility] HYDROCHLORO 7-24 TABLET BY ity of THIAZIDE 00:00: MOUTH IN [place] 20-12.5 mg 00 THE Medical per tablet MORNING Branch PATIENT NEEDS APPOINTMEN T FOR FUTURE REFILLS LISINOPRIL- 2023-0 Yes [id number] TAKE 1 [facility] HYDROCHLORO 7-24 TABLET BY ity of THIAZIDE 00:00: MOUTH IN [place] 20-12.5 mg 00 THE Medical per tablet MORNING Branch PATIENT NEEDS APPOINTMEN T FOR FUTURE REFILLS LISINOPRIL- 2023-0 Yes [id number] TAKE 1 [facility] HYDROCHLORO 7-24 TABLET BY ity of THIAZIDE 00:00: MOUTH IN [place] 20-12.5 mg 00 THE Medical per tablet MORNING Branch PATIENT NEEDS APPOINTMEN T FOR FUTURE REFILLS LISINOPRIL- 2023-0 Yes [id number] TAKE 1 [facility] HYDROCHLORO 7-24 TABLET BY ity of THIAZIDE 00:00: MOUTH IN [place] 20-12.5 mg 00 THE Medical per tablet MORNING Branch PATIENT NEEDS APPOINTMEN T FOR FUTURE REFILLS LISINOPRIL- 2023-0 Yes [id number] TAKE 1 [facility] HYDROCHLORO 7-24 TABLET BY ity of THIAZIDE 00:00: MOUTH IN [place] 20-12.5 mg 00 THE Medical per tablet MORNING Branch PATIENT NEEDS APPOINTMEN T FOR FUTURE REFILLS LISINOPRIL- 2023-0 Yes [id number] TAKE 1 [facility] HYDROCHLORO 7-24 TABLET BY ity of THIAZIDE 00:00: MOUTH IN [place] 20-12.5 mg 00 THE Medical per tablet MORNING Branch PATIENT NEEDS APPOINTMEN T FOR FUTURE REFILLS LISINOPRIL- 3- No [id number] TAKE 1 [facility] HYDROCHLORO 7-24 10-23 TABLET BY it y of THIAZIDE 00:00: 00:00 MOUTH IN [facility] s 20-12.5 mg 00 :00 THE Medical per tablet MORNING Branch PATIENT NEEDS APPOINTMEN T FOR FUTURE REFILLS MONTELUKAST 0 Yes [id number] 10mg TAKE 1 [facility] 10 mg 6-06 TABLET BY ity of tablet 00:00: MOUTH IN [place] 00 THE Medical MORNING Branch MONTELUKAST 0 Yes [id number] 10mg TAKE 1 [facility] 10 mg 6-06 TABLET BY ity of tablet 00:00: MOUTH IN [place] 00 THE Medical MORNING Branch MONTELUKAST 0 Yes [id number] 10mg TAKE 1 [facility] 10 mg 6-06 TABLET BY ity of tablet 00:00: MOUTH IN [place] 00 THE [facility] MORNING Branch MONTELUKAST 0 Yes [id number] 10mg TAKE 1 [facility] 10 mg 6-06 TABLET BY ity of tablet 00:00: MOUTH IN [place] 00 THE Medical MORNING Branch MONTELUKAST 0 Yes [id number] 10mg TAKE 1 [facility] 10 mg 6-06 TABLET BY ity of tablet 00:00: MOUTH IN [place] 00 THE [facility] MORNING Branch MONTELUKAST 0 Yes [id number] 10mg TAKE 1 [facility] 10 mg 6-06 TABLET BY ity of tablet 00:00: MOUTH IN [place] 00 THE Medical MORNING Branch MONTELUKAST 0 Yes [id number] 10mg TAKE 1 [facility] 10 mg 6-06 TABLET BY ity of tablet 00:00: MOUTH IN [place] 00 THE Medical MORNING Branch MONTELUKAST 0 Yes [id number] 10mg TAKE 1 [facility] 10 mg 6-06 TABLET BY ity of tablet 00:00: MOUTH IN [place] 00 THE Medical MORNING Branch MONTELUKAST 0 Yes [id number] 10mg TAKE 1 [facility] 10 mg 6-06 TABLET BY ity of tablet 00:00: MOUTH IN [place] 00 THE [facility] MORNING Branch MONTELUKAST 0 Yes [id number] 10mg TAKE 1 [facility] 10 mg 6-06 TABLET BY ity of tablet 00:00: MOUTH IN [place] 00 THE Medical MORNING Branch MONTELUKAST 0 Yes [id number] 10mg TAKE 1 [facility] 10 mg 6-06 TABLET BY ity of tablet 00:00: MOUTH IN [place] 00 THE Medical MORNING Branch MONTELUKAST 0 Yes [id number] 10mg TAKE 1 [facility] 10 mg 6-06 TABLET BY ity of tablet 00:00: MOUTH IN [place] 00 THE [facility] MORNING Branch MONTELUKAST 0 Yes [id number] 10mg TAKE 1 [facility] 10 mg 6-06 TABLET BY ity of tablet 00:00: MOUTH IN [place] 00 THE Medical MORNING Branch MONTELUKAST 0 Yes [id number] 10mg TAKE 1 [facility] 10 mg 6-06 TABLET BY ity of tablet 00:00: MOUTH IN [place] 00 THE [facility] MORNING Branch MONTELUKAST 0 Yes [id number] 10mg TAKE 1 [facility] 10 mg 6-06 TABLET BY ity of tablet 00:00: MOUTH IN [place] 00 THE [facility] MORNING Branch MONTEKAST Yes [id number] 10mg TAKE 1 [facility] 10 mg 6-06 TABLET BY ity of tablet 00:00: MOUTH IN [place] 00 THE [facility] MORNING [place] MONTEKAST Yes [id number] 10mg TAKE 1 [facility] 10 mg 6-06 TABLET BY ity of tablet 00:00: MOUTH IN [place] 00 THE [facility] MONTEKAST 0 Yes [id number] 10mg TAKE 1 [facility] 10 mg 6-06 TABLET BY ity of tablet 00:00: MOUTH IN [place] 00 THE [facility] MONTEKAST 2022-0 2022- No [id number] 10mg TAKE 1 [facility] 10 mg 6-06 10-02 TABLET BY ity of tablet 00:00: 00:00 MOUTH IN [place] 00 :00 THE Medical MORNING [place] ATORVASTATI 2022-0 Yes [id number] 20mg TAKE 1 [facility] N 20 mg 5-15 TABLET BY ity of tablet 00:00: MOUTH AT [place] 00 BEDTIME [facility] ATORVASTATI 2022-0 Yes [id number] 20mg TAKE 1 [facility] N 20 mg 5-15 TABLET BY ity of tablet 00:00: MOUTH AT [place] 00 BEDTIME [facility] ATORVASTATI 2022-0 Yes [id number] 20mg TAKE 1 [facility] N 20 mg 5-15 TABLET BY ity of tablet 00:00: MOUTH AT [place] [facility] Yes [id number] 20mg TAKE 1 [facility] N 20 mg 5-15 TABLET BY ity of tablet 00:00: MOUTH AT [place] [facility] Yes [id number] 20mg TAKE 1 [facility] N 20 mg 5-15 TABLET BY ity of tablet 00:00: MOUTH AT [place] [facility] Yes [id number] 20mg TAKE 1 [facility] N 20 mg 5-15 TABLET BY ity of tablet 00:00: MOUTH AT [place] [facility] Yes [id number] 20mg TAKE 1 [facility] N 20 mg 5-15 TABLET BY ity of tablet 00:00: MOUTH AT [place] [facility] Yes [id number] 20mg TAKE 1 [facility] N 20 mg 5-15 TABLET BY ity of tablet 00:00: MOUTH AT [place] [facility] Yes [id number] 20mg TAKE 1 [facility] N 20 mg 5-15 TABLET BY ity of tablet 00:00: MOUTH AT [place] [facility] Yes [id number] 20mg TAKE 1 [facility] N 20 mg 5-15 TABLET BY ity of tablet 00:00: MOUTH AT [place] [facility] Yes [id number] 20mg TAKE 1 [facility] N 20 mg 5-15 TABLET BY ity of tablet 00:00: MOUTH AT [place] [facility] Yes [id number] 20mg TAKE 1 [facility] N 20 mg 5-15 TABLET BY ity of tablet 00:00: MOUTH AT [place] [facility] Yes [id number] 20mg TAKE 1 [facility] N 20 mg 5-15 TABLET BY ity of tablet 00:00: MOUTH AT [address] Yes [id number] 20mg TAKE 1 [facility] N 20 mg 5-15 TABLET BY ity of tablet 00:00: MOUTH AT [address] [facility] 3- No [id number] 20mg TAKE 1 [facility] N 20 mg 5-15 08-21 TABLET BY ity of tablet 00:00: 00:00 MOUTH AT [place] 00 :00 BEDTIME Medical Branch HYDROCHLORO 2023-0 Yes [id number] Take 1 [facility] THIAZIDE 25 5-12 tablet by ity of mg tablet 00:00: mouth once [place] daily Medical Branch HYDROCHLORO 2023-0 Yes [id number] Take 1 [facility] THIAZIDE 25 5-12 tablet by ity of mg tablet 00:00: mouth once [place] daily Medical Branch HYDROCHLORO 2023-0 Yes [id number] Take 1 [facility] THIAZIDE 25 5-12 tablet by ity of mg tablet 00:00: mouth once [place] daily Medical Branch HYDROCHLORO 2023-0 Yes [id number] Take 1 [facility] THIAZIDE 25 5-12 tablet by ity of mg tablet 00:00: mouth once [place] daily [facility] Branch HYDROCHLORO 2023-0 Yes [id number] Take 1 [facility] THIAZIDE 25 5-12 tablet by ity of mg tablet 00:00: mouth once [place] daily [facility] Branch HYDROCHLORO 2023-0 Yes [id number] Take 1 [facility] THIAZIDE 25 5-12 tablet by ity of mg tablet 00:00: mouth once [place] daily Medical Branch HYDROCHLORO 2023-0 Yes [id number] Take 1 [facility] THIAZIDE 25 5-12 tablet by ity of mg tablet 00:00: mouth once [place] daily Medical Branch HYDROCHLORO 2023-0 Yes [id number] Take 1 [facility] THIAZIDE 25 5-12 tablet by ity of mg tablet 00:00: mouth once [place] daily Medical Branch HYDROCHLORO 2023-0 Yes [id number] Take 1 [facility] THIAZIDE 25 5-12 tablet by ity of mg tablet 00:00: mouth once [place] daily Medical Branch HYDROCHLORO 2023-0 Yes [id number] Take 1 [facility] THIAZIDE 25 5-12 tablet by ity of mg tablet 00:00: mouth once [place] 00 daily Medical Branch HYDROCHLORO 2023-0 Yes [id number] Take 1 [facility] THIAZIDE 25 5-12 tablet by ity of mg tablet 00:00: mouth once [place] 00 daily Medical Branch HYDROCHLORO 2023-0 Yes [id number] Take 1 [facility] THIAZIDE 25 5-12 tablet by ity of mg tablet 00:00: mouth once [place] daily Medical Branch HYDROCHLORO 2023-0 Yes [id number] Take 1 [facility] THIAZIDE 25 5-12 tablet by ity of mg tablet 00:00: mouth once [place] 00 daily Medical Branch HYDROCHLORO 2022-0 Yes [id number] Take 1 [facility] THIAZIDE 25 5-12 tablet by ity of mg tablet 00:00: mouth once [place] 00 daily Medical Branch HYDROCHLORO 2022-0 Yes [id number] Take 1 [facility] THIAZIDE 25 5-12 tablet by ity of mg tablet 00:00: mouth once [place] 00 daily Medical Branch HYDROCHLORO 2022-0 2022- No [id number] Take 1 [facility] THIAZIDE 25 5-12 08-21 tablet by it y of mg tablet 00:00: 00:00 mouth once [place] 00 :00 daily Medical Branch lisinopriL- 0 Yes [id number] 1{tbl} Take 1 [facility] hydrochloro 4-20 tablet by ity of thiazide 00:00: mouth in [place] 20-12.5 mg 00 the Medical per tablet morning. Bran h MUST BE SEEN FOR FURTHER REFILLS lisinopriL- 0 Yes [id number] 1{tbl} Take 1 [facility] hydrochloro 4-20 tablet by ity of thiazide 00:00: mouth in [place] 20-12.5 mg 00 the Medical per tablet morning. Bran h MUST BE SEEN FOR FURTHER REFILLS lisinopriL- 0 Yes [id number] 1{tbl} Take 1 [facility] hydrochloro 4-20 tablet by ity of thiazide 00:00: mouth in [place] 20-12.5 mg 00 the Medical per tablet morning. Bran h MUST BE SEEN FOR FURTHER REFILLS lisinopriL- 0 Yes [id number] 1{tbl} Take 1 [facility] hydrochloro 4-20 tablet by ity of thiazide 00:00: mouth in [place] 20-12.5 mg 00 the Medical per tablet morning. Bran h MUST BE SEEN FOR FURTHER REFILLS lisinopriL- 2022-0 2022- No [id number] 1{tbl} Take 1 [facility] hydrochloro 4-20 07-24 tablet by it y of thiazide 00:00: 00:00 mouth in [facility] s 20-12.5 mg 00 :00 the Medical per tablet morning. Bran h MUST BE SEEN FOR FURTHER REFILLS montelukast 2023-0 Yes 10 mg = 1 M em[place] 10 mg oral 1-05 tab, PO, l tablet 21:40: Bedtime, # [place]ress[place] nn 00 30 tab, 0 Refill(s) MONTELUKAST Yes [id number] 10mg TAKE 1 [facility] 10 mg 1-02 TABLET BY ity of tablet 00:00: MOUTH IN [place] 00 THE [facility] MONTELUKAST Yes [id number] 10mg TAKE 1 [facility] 10 mg 1-02 TABLET BY ity of tablet 00:00: MOUTH IN [place] 00 THE [facility] MONTELUKAST Yes [id number] 10mg TAKE 1 [facility] 10 mg 1-02 TABLET BY ity of tablet 00:00: MOUTH IN [place] 00 THE [facility] MONTELUKAST Yes [id number] 10mg TAKE 1 [facility] 10 mg 1-02 TABLET BY ity of tablet 00:00: MOUTH IN [place] 00 THE [facility] MONTELUKAST Yes [id number] 10mg TAKE 1 [facility] 10 mg 1-02 TABLET BY ity of tablet 00:00: MOUTH IN [place] 00 THE [facility] MONTELUKAST Yes [id number] 10mg TAKE 1 [facility] 10 mg 1-02 TABLET BY ity of tablet 00:00: MOUTH IN [place] 00 THE [facility] MONTELUKAST Yes [id number] 10mg TAKE 1 [facility] 10 mg 1-02 TABLET BY ity of tablet 00:00: MOUTH IN [place] 00 THE [facility] MONTELUKAST Yes [id number] 10mg TAKE 1 [facility] 10 mg 1-02 TABLET BY ity of tablet 00:00: MOUTH IN [place] 00 THE [facility] MONTELUKAST Yes [id number] 10mg TAKE 1 [facility] 10 mg 1-02 TABLET BY ity of tablet 00:00: MOUTH IN [place] 00 THE [facility] MONTELUKAST Yes [id number] 10mg TAKE 1 [facility] 10 mg 1-02 TABLET BY ity of tablet 00:00: MOUTH IN [place] 00 THE [facility] MONTELUKAST Yes [id number] 10mg TAKE 1 [facility] 10 mg 1-02 TABLET BY ity of tablet 00:00: MOUTH IN [place] 00 THE [facility] MONTELUKAST 2023-0 Yes [id number] 10mg TAKE 1 [facility] 10 mg 1-02 TABLET BY ity of tablet 00:00: MOUTH IN [place] 00 THE Medical MORNING Branch MONTELUST 2022- No [id number] 10mg TAKE 1 [facility] 10 mg 1-02 06-06 TABLET BY ity of tablet 00:00: 00:00 MOUTH IN [place] 00 :00 THE Medical MORNING Branch [facility] 2021-08 Yes [id number] 10mg TAKE 1 [facility] 10 mg 2-30 TABLET BY ity of tablet 00:00: MOUTH IN [place] 00 THE Medical MORNING Branch [facility] 2021-08- No [id number] 10mg TAKE 1 [facility] 10 mg 2-30 - TABLET BY ity of tablet 00:00: 00:00 MOUTH IN [place] 00 :00 THE [facility] 2021-08 Yes [id number] 20mg TAKE 1 [facility] N 20 mg 2-14 TABLET BY ity of tablet 00:00: MOUTH AT [place] [facility] 2021-08 Yes [id number] 20mg TAKE 1 [facility] N 20 mg 2-14 TABLET BY ity of tablet 00:00: MOUTH AT [place] [facility] 2021-08 Yes [id number] 20mg TAKE 1 [facility] N 20 mg 2-14 TABLET BY ity of tablet 00:00: MOUTH AT [place] [facility] 2021-08 Yes [id number] 20mg TAKE 1 [facility] N 20 mg 2-14 TABLET BY ity of tablet 00:00: MOUTH AT [place] [facility] 2021-08 Yes [id number] 20mg TAKE 1 [facility] N 20 mg 2-14 TABLET BY ity of tablet 00:00: MOUTH AT [place] [facility] 2021-08 Yes [id number] 20mg TAKE 1 [facility] N 20 mg 2-14 TABLET BY ity of tablet 00:00: MOUTH AT [address] 2021-08 Yes [id number] 20mg TAKE 1 [facility] N 20 mg 2-14 TABLET BY ity of tablet 00:00: MOUTH AT [address] 2021-08 Yes [id number] 20mg TAKE 1 [facility] N 20 mg 2-14 TABLET BY ity of tablet 00:00: MOUTH AT [address] 2021-08 Yes [id number] 20mg TAKE 1 [facility] N 20 mg 2-14 TABLET BY ity of tablet 00:00: MOUTH AT [place] [facility] 2021-08 Yes [id number] 20mg TAKE 1 [facility] N 20 mg 2-14 TABLET BY ity of tablet 00:00: MOUTH AT [place] [facility] 2021-08 Yes [id number] 20mg TAKE 1 [facility] N 20 mg 2-14 TABLET BY ity of tablet 00:00: MOUTH AT [address] 2021-08 Yes [id number] 20mg TAKE 1 [facility] N 20 mg 2-14 TABLET BY ity of tablet 00:00: MOUTH AT [address] 2021-08 Yes [id number] 20mg TAKE 1 [facility] N 20 mg 2-14 TABLET BY ity of tablet 00:00: MOUTH AT [place] [facility] 2021-08- No [id number] 20mg TAKE 1 [facility] N 20 mg 2-14 05-15 TABLET BY ity of tablet 00:00: 00:00 MOUTH AT [place] 00 :00 [facility] memantine 2021-08 Yes = 1 tab, [place] nat[place] 10 mg oral 2-12 PO, BID, # l tablet 17:39: 90 tab, 2 John n 00 Refill(s), Pharmacy: [facility], 170.18, cm, 08/05/21 15:27:00 [employer], Height, 148.182, kg, 08/05/21 15:27:00 [employer], Weight mometasone 2021-08 Yes [id number] 1{spray Use 1 [facility] (NASONEX) 1-22 } [place] in ity of 50 00:00: each [place] mcg/actuati 00 nostril in Me dical on nasal the Branch spray morning and 1 [place] in the evening. azelastine 2021-08 Yes [id number] 1{spray Use 1 [facility] 137 mcg 1-22 } [place] in ity of (0.1 %) 00:00: each [place] nasal spray 00 nostril in Me dical the Branch morning and 1 [place] in the evening. Use in each nostril as directed mupirocin 2 2021-08 Yes [id number] Apply U nivers % ointment 1-22 pea-sized ity of 00:00: amount [place] 00 with a Medical q-tip or Branch clean finger to each nostril twice daily. mometasone 2021-08 Yes [id number] 1{spray Use 1 [facility] (NASONEX) 1-22 } [place] in ity of 50 00:00: each [place] mcg/actuati 00 nostril in Me dical on nasal the Branch spray morning and 1 [place] in the evening. azelastine 2021-08 Yes [id number] 1{spray Use 1 [facility] 137 mcg 1-22 } [place] in ity of (0.1 %) 00:00: each [place] nasal spray 00 nostril in Me dical the Branch morning and 1 [place] in the evening. Use in each nostril as directed mupirocin 2 2021-08 Yes [id number] Apply U nivers % ointment 1-22 pea-sized ity of 00:00: amount [place] 00 with a Medical q-tip or Branch clean finger to each nostril twice daily. mometasone 2021-08 Yes [id number] 1{spray Use 1 [facility] (NASONEX) 1-22 } [place] in ity of 50 00:00: each [place] mcg/actuati 00 nostril in [place] dical on nasal the Branch spray morning and 1 [place] in the evening. azelastine 2021-08 Yes [id number] 1{spray Use 1 [facility] 137 mcg 1-22 } [place] in ity of (0.1 %) 00:00: each [place] nasal spray 00 nostril in Me dical the Branch morning and 1 [place] in the evening. Use in each nostril as directed mupirocin 2 2021-08 Yes [id number] Apply U nivers % ointment 1-22 pea-sized ity of 00:00: amount [place] 00 with a Medical q-tip or Branch clean finger to each nostril twice daily. mometasone 2021-08 Yes [id number] 1{spray Use 1 [facility] (NASONEX) 1-22 } [place] in ity of 50 00:00: each [place] mcg/actuati 00 nostril in Me dical on nasal the Branch spray morning and 1 [place] in the evening. azelastine 2021-08 Yes [id number] 1{spray Use 1 [facility] 137 mcg 1-22 } [place] in ity of (0.1 %) 00:00: each [place] nasal spray 00 nostril in Me dical the Branch morning and 1 [place] in the evening. Use in each nostril as directed mupirocin 2 2021-08 Yes [id number] Apply U nivers % ointment 1-22 pea-sized ity of 00:00: amount [place] 00 with a Medical q-tip or Branch clean finger to each nostril twice daily. mometasone 2021-08 Yes [id number] 1{spray Use 1 [facility] (NASONEX) 1-22 } [place] in ity of 50 00:00: each [place] mcg/actuati 00 nostril in Me dical on nasal the Branch spray morning and 1 [place] in the evening. azelastine 2021-08 Yes [id number] 1{spray Use 1 [facility] 137 mcg 1-22 } [place] in ity of (0.1 %) 00:00: each [place] nasal spray 00 nostril in Me dical the Branch morning and 1 [place] in the evening. Use in each nostril as directed mupirocin 2 2021-08 Yes [id number] Apply U nivers % ointment 1-22 pea-sized ity of 00:00: amount [place] 00 with a Medical q-tip or Branch clean finger to each nostril twice daily. mometasone 2021-08 Yes [id number] 1{spray Use 1 [facility] (NASONEX) 1-22 } [place] in ity of 50 00:00: each [place] mcg/actuati 00 nostril in Me dical on nasal the Branch spray morning and 1 [place] in the evening. azelastine 2021-08 Yes [id number] 1{spray Use 1 [facility] 137 mcg 1-22 } [place] in ity of (0.1 %) 00:00: each [place] nasal spray 00 nostril in Me dical the Branch morning and 1 [place] in the evening. Use in each nostril as directed mupirocin 2 2021-08 Yes [id number] Apply U nivers % ointment 1-22 pea-sized ity of 00:00: amount [place] 00 with a Medical q-tip or Branch clean finger to each nostril twice daily. mometasone 2021-08 Yes [id number] 1{spray Use 1 [facility] (NASONEX) 1-22 } [place] in ity of 50 00:00: each [place] mcg/actuati 00 nostril in Me dical on nasal the Branch spray morning and 1 [place] in the evening. azelastine 2021-08 Yes [id number] 1{spray Use 1 [facility] 137 mcg 1-22 } [place] in ity of (0.1 %) 00:00: each [place] nasal spray 00 nostril in Me dical the Branch morning and 1 [place] in the evening. Use in each nostril as directed mupirocin 2 2021-08 Yes [id number] Apply U nivers % ointment 1-22 pea-sized ity of 00:00: amount [place] 00 with a Medical q-tip or Branch clean finger to each nostril twice daily. mometasone 2021-08 Yes [id number] 1{spray Use 1 [facility] (NASONEX) 1-22 } [place] in ity of 50 00:00: each [place] mcg/actuati 00 nostril in Me dical on nasal the Branch spray morning and 1 [place] in the evening. azelastine 2021-08 Yes [id number] 1{spray Use 1 [facility] 137 mcg 1-22 } [place] in ity of (0.1 %) 00:00: each [place] nasal spray 00 nostril in Me dical the Branch morning and 1 [place] in the evening. Use in each nostril as directed mupirocin 2 2021-08 Yes [id number] Apply U nivers % ointment 1-22 pea-sized ity of 00:00: amount [place] 00 with a Medical q-tip or Branch clean finger to each nostril twice daily. mometasone 2021-08 Yes [id number] 1{spray Use 1 [facility] (NASONEX) 1-22 } [place] in ity of 50 00:00: each [place] mcg/actuati 00 nostril in Me dical on nasal the Branch spray morning and 1 [place] in the evening. azelastine 2021-08 Yes [id number] 1{spray Use 1 [facility] 137 mcg 1-22 } [place] in ity of (0.1 %) 00:00: each [place] nasal spray 00 nostril in Me dical the Branch morning and 1 [place] in the evening. Use in each nostril as directed mupirocin 2 2021-08 Yes [id number] Apply U nivers % ointment 1-22 pea-sized ity of 00:00: amount [place] 00 with a Medical q-tip or Branch clean finger to each nostril twice daily. mometasone 2021-08 Yes [id number] 1{spray Use 1 [facility] (NASONEX) 1-22 } [place] in ity of 50 00:00: each [place] mcg/actuati 00 nostril in Me dical on nasal the Branch spray morning and 1 [place] in the evening. azelastine 2021-08 Yes [id number] 1{spray Use 1 [facility] 137 mcg 1-22 } [place] in ity of (0.1 %) 00:00: each [place] nasal spray 00 nostril in Me dical the Branch morning and 1 [place] in the evening. Use in each nostril as directed mupirocin 2 2021-08 Yes [id number] Apply U nivers % ointment 1-22 pea-sized ity of 00:00: amount [place] 00 with a Medical q-tip or Branch clean finger to each nostril twice daily. mometasone 2021-08 Yes [id number] 1{spray Use 1 [facility] (NASONEX) 1-22 } [place] in ity of 50 00:00: each [place] mcg/actuati 00 nostril in [place] dical on nasal the Branch spray morning and 1 [place] in the evening. azelastine 2021-08 Yes [id number] 1{spray Use 1 [facility] 137 mcg 1-22 } [place] in ity of (0.1 %) 00:00: each [place] nasal spray 00 nostril in [place] dical the Branch morning and 1 [place] in the evening. Use in each nostril as directed mupirocin 2 2021-08 Yes [id number] Apply U nivers % ointment 1-22 pea-sized ity of 00:00: amount [place] 00 with a Medical q-tip or Branch clean finger to each nostril twice daily. mometasone 2021-08 Yes [id number] 1{spray Use 1 [facility] (NASONEX) 1-22 } [place] in ity of 50 00:00: each [place] mcg/actuati 00 nostril in Me dical on nasal the Branch spray morning and 1 [place] in the evening. azelastine 2021-08 Yes [id number] 1{spray Use 1 [facility] 137 mcg 1-22 } [place] in ity of (0.1 %) 00:00: each [place] nasal spray 00 nostril in Me dical the Branch morning and 1 [place] in the evening. Use in each nostril as directed mupirocin 2 2021-08 Yes [id number] Apply U nivers % ointment 1-22 pea-sized ity of 00:00: amount [place] 00 with a Medical q-tip or Branch clean finger to each nostril twice daily. mometasone 2021-08 Yes [id number] 1{spray Use 1 [facility] (NASONEX) 1-22 } [place] in ity of 50 00:00: each [place] mcg/actuati 00 nostril in Me dical on nasal the Branch spray morning and 1 [place] in the evening. azelastine 2021-08 Yes [id number] 1{spray Use 1 [facility] 137 mcg 1-22 } [place] in ity of (0.1 %) 00:00: each [place] nasal spray 00 nostril in Me dical the Branch morning and 1 [place] in the evening. Use in each nostril as directed mupirocin 2 2021-08 Yes [id number] Apply U nivers % ointment 1-22 pea-sized ity of 00:00: amount [place] 00 with a Medical q-tip or Branch clean finger to each nostril twice daily. mometasone 2021-08 Yes [id number] 1{spray Use 1 [facility] (NASONEX) 1-22 } [place] in ity of 50 00:00: each [place] mcg/actuati 00 nostril in Me dical on nasal the Branch spray morning and 1 [place] in the evening. azelastine 2021-08 Yes [id number] 1{spray Use 1 [facility] 137 mcg 1-22 } [place] in ity of (0.1 %) 00:00: each [place] nasal spray 00 nostril in Me dical the Branch morning and 1 [place] in the evening. Use in each nostril as directed mupirocin 2 2021-08 Yes [id number] Apply U nivers % ointment 1-22 pea-sized ity of 00:00: amount [place] 00 with a Medical q-tip or Branch clean finger to each nostril twice daily. mometasone 2021-08 Yes [id number] 1{spray Use 1 [facility] (NASONEX) 1-22 } [place] in ity of 50 00:00: each [place] mcg/actuati 00 nostril in Me dical on nasal the Branch spray morning and 1 [place] in the evening. azelastine 2021-08 Yes [id number] 1{spray Use 1 [facility] 137 mcg 1-22 } [place] in ity of (0.1 %) 00:00: each [place] nasal spray 00 nostril in Me dical the Branch morning and 1 [place] in the evening. Use in each nostril as directed mupirocin 2 2021-08 Yes [id number] Apply U nivers % ointment 1-22 pea-sized ity of 00:00: amount [place] 00 with a Medical q-tip or Branch clean finger to each nostril twice daily. mometasone 2021-08 Yes [id number] 1{spray Use 1 [facility] (NASONEX) 1-22 } [place] in ity of 50 00:00: each [place] mcg/actuati 00 nostril in Me dical on nasal the Branch spray morning and 1 [place] in the evening. azelastine 2021-08 Yes [id number] 1{spray Use 1 [facility] 137 mcg 1-22 } [place] in ity of (0.1 %) 00:00: each [place] nasal spray 00 nostril in Me dical the Branch morning and 1 [place] in the evening. Use in each nostril as directed mupirocin 2 2021-08 Yes [id number] Apply U nivers % ointment 1-22 pea-sized ity of 00:00: amount [place] 00 with a Medical q-tip or Branch clean finger to each nostril twice daily. mometasone 2021-08 Yes [id number] 1{spray Use 1 [facility] (NASONEX) 1-22 } [place] [facility]y of 50 00:00: each [place] mcg/actuati 00 nostril in Me dical on nasal the Branch spray morning and 1 [place] in the evening. azelastine 2021-08 Yes [id number] 1{spray Use 1 [facility] 137 mcg 1-22 } [place] [facility]y of (0.1 %) 00:00: each [place] nasal spray 00 nostril in Me dical the Branch morning and 1 [place] in the evening. Use in each nostril as directed mupirocin 2 2021-08 Yes [id number] Apply U nivers % ointment 1-22 pea-sized ity of 00:00: amount [place] 00 with a Medical q-tip or Branch clean finger to each nostril twice daily. mometasone 2021-08 Yes [id number] 1{spray Use 1 [facility] (NASONEX) 1-22 } [place] [facility]y of 50 00:00: each [place] mcg/actuati 00 nostril in Me dical on nasal the Branch spray morning and 1 [place] in the evening. azelastine 2021-08 Yes [id number] 1{spray Use 1 [facility] 137 mcg 1-22 } [place] [facility]y of (0.1 %) 00:00: each [place] nasal spray 00 nostril in Me dical the Branch morning and 1 [place] in the evening. Use in each nostril as directed mupirocin 2 2021-08 Yes [id number] Apply U nivers % ointment 1-22 pea-sized ity of 00:00: amount [place] 00 with a Medical q-tip or Branch clean finger to each nostril twice daily. mometasone 2021-08 Yes [id number] 1{spray Use 1 [facility] (NASONEX) 1-22 } [place] in [facility]y of 50 00:00: each [place] mcg/actuati 00 nostril in Me dical on nasal the Branch spray morning and 1 [place] in the evening. azelastine 2021-08 Yes [id number] 1{spray Use 1 [facility] 137 mcg 1-22 } [place] ity of (0.1 %) 00:00: each [place] nasal spray 00 nostril in Me dical the Branch morning and 1 [place] in the evening. Use in each nostril as directed mupirocin 2 2021-08 Yes [id number] Apply U nivers % ointment 1-22 pea-sized ity of 00:00: amount [place] 00 with a Medical q-tip or Branch clean finger to each nostril twice daily. mometasone 2021-08 Yes [id number] 1{spray Use 1 [facility] (NASONEX) 1-22 } [place] in ity of 50 00:00: each [place] mcg/actuati 00 nostril in Me dical on nasal the Branch spray morning and 1 [place] in the evening. azelastine 2021-08 Yes [id number] 1{spray Use 1 [facility] 137 mcg 1-22 } [place] ity of (0.1 %) 00:00: each [place] nasal spray 00 nostril in Me dical the Branch morning and 1 [place] in the evening. Use in each nostril as directed mupirocin 2 2021-08 Yes [id number] Apply U nivers % ointment 1-22 pea-sized ity of 00:00: amount [place] 00 with a Medical q-tip or Branch clean finger to each nostril twice daily. mometasone 2021-08 Yes [id number] 1{spray Use 1 [facility] (NASONEX) 1-22 } [place] in ity of 50 00:00: each [place] mcg/actuati 00 nostril in Me dical on nasal the Branch spray morning and 1 [place] in the evening. azelastine 2021-08 Yes [id number] 1{spray Use 1 [facility] 137 mcg 1-22 } [place] ity of (0.1 %) 00:00: each [place] nasal spray 00 nostril in Me dical the Branch morning and 1 [place] in the evening. Use in each nostril as directed mupirocin 2 2021-08 Yes [id number] Apply U nivers % ointment 1-22 pea-sized ity of 00:00: amount [place] 00 with a Medical q-tip or Branch clean finger to each nostril twice daily. mometasone 2021-08 Yes [id number] 1{spray Use 1 [facility] (NASONEX) 1-22 } [place] in ity of 50 00:00: each [place] mcg/actuati 00 nostril in Me dical on nasal the Branch spray morning and 1 [place] in the evening. azelastine 2021-08 Yes [id number] 1{spray Use 1 [facility] 137 mcg 1-22 } [place] ity of (0.1 %) 00:00: each [place] nasal spray 00 nostril in Me dical the Branch morning and 1 [place] in the evening. Use in each nostril as directed mupirocin 2 2021-08 Yes [id number] Apply U nivers % ointment 1-22 pea-sized ity of 00:00: amount [place] 00 with a Medical q-tip or Branch clean finger to each nostril twice daily. mometasone 2021-08 Yes [id number] 1{spray Use 1 [facility] (NASONEX) 1-22 } [place] in ity of 50 00:00: each [place] mcg/actuati 00 nostril in Me dical on nasal the Branch spray morning and 1 [place] in the evening. azelastine 2021-08 Yes [id number] 1{spray Use 1 [facility] 137 mcg 1-22 } [place] ity of (0.1 %) 00:00: each [place] nasal spray 00 nostril in Me dical the Branch morning and 1 [place] in the evening. Use in each nostril as directed mupirocin 2 2021-08 Yes [id number] Apply U nivers % ointment 1-22 pea-sized ity of 00:00: amount [place] 00 with a Medical q-tip or Branch clean finger to each nostril twice daily. mometasone 2021-08 Yes [id number] 1{spray Use 1 [facility] (NASONEX) 1-22 } [place] in [facility]y of 50 00:00: each [place] mcg/actuati 00 nostril in Me dical on nasal the Branch spray morning and 1 [place] in the evening. azelastine 2021-08 Yes [id number] 1{spray Use 1 [facility] 137 mcg 1-22 } [place] [facility]y of (0.1 %) 00:00: each [place] nasal spray 00 nostril in Me dical the Branch morning and 1 [place] in the evening. Use in each nostril as directed mupirocin 2 2021-08 Yes [id number] Apply U nivers % ointment 1-22 pea-sized ity of 00:00: amount [place] 00 with a Medical q-tip or Branch clean finger to each nostril twice daily. mometasone 2021-08 Yes [id number] 1{spray Use 1 [facility] (NASONEX) 1-22 } [place] in [facility]y of 50 00:00: each [place] mcg/actuati 00 nostril in Me dical on nasal the Branch spray morning and 1 [place] in the evening. azelastine 2021-08 Yes [id number] 1{spray Use 1 [facility] 137 mcg 1-22 } [place] ity of (0.1 %) 00:00: each [place] nasal spray 00 nostril in Me dical the Branch morning and 1 [place] in the evening. Use in each nostril as directed mupirocin 2 2021-08 Yes [id number] Apply U nivers % ointment 1-22 pea-sized ity of 00:00: amount [place] 00 with a Medical q-tip or Branch clean finger to each nostril twice daily. mometasone 2021-08 Yes [id number] 1{spray Use 1 [facility] (NASONEX) 1-22 } [place] in [facility]y of 50 00:00: each [place] mcg/actuati 00 nostril in Me dical on nasal the Branch spray morning and 1 [place] in the evening. azelastine 2021-08 Yes [id number] 1{spray Use 1 [facility] 137 mcg 1-22 } [place] ity of (0.1 %) 00:00: each [place] nasal spray 00 nostril in Me dical the Branch morning and 1 [place] in the evening. Use in each nostril as directed mupirocin 2 2021-08 Yes [id number] Apply U nivers % ointment 1-22 pea-sized ity of 00:00: amount [place] 00 with a Medical q-tip or Branch clean finger to each nostril twice daily. mometasone 2021-08 Yes [id number] 1{spray Use 1 [facility] (NASONEX) 1-22 } [place] in [facility]y of 50 00:00: each [place] mcg/actuati 00 nostril in Me dical on nasal the Branch spray morning and 1 [place] in the evening. azelastine 2021-08 Yes [id number] 1{spray Use 1 [facility] 137 mcg 1-22 } [place] ity of (0.1 %) 00:00: each [place] nasal spray 00 nostril in Me dical the Branch morning and 1 [place] in the evening. Use in each nostril as directed mupirocin 2 2021-08 Yes [id number] Apply U nivers % ointment 1-22 pea-sized ity of 00:00: amount [place] 00 with a Medical q-tip or Branch clean finger to each nostril twice daily. mometasone 2021-08 Yes [id number] 1{spray Use 1 [facility] (NASONEX) 1-22 } [place] in ity of 50 00:00: each [place] mcg/actuati 00 nostril in Me dical on nasal the Branch spray morning and 1 [place] in the evening. azelastine 2021-08 Yes [id number] 1{spray Use 1 [facility] 137 mcg 1-22 } [place] in ity of (0.1 %) 00:00: each [place] nasal spray 00 nostril in Me dical the Branch morning and 1 [place] in the evening. Use in each nostril as directed mupirocin 2 2021-08 Yes [id number] Apply U nivers % ointment 1-22 pea-sized ity of 00:00: amount [place] 00 with a Medical q-tip or Branch clean finger to each nostril twice daily. mometasone 2021-08 Yes [id number] 1{spray Use 1 [facility] (NASONEX) 1-22 } [place] in ity of 50 00:00: each [place] mcg/actuati 00 nostril in Me dical on nasal the Branch spray morning and 1 [place] in the evening. azelastine 2021-08 Yes [id number] 1{spray Use 1 [facility] 137 mcg 1-22 } [place] ity of (0.1 %) 00:00: each [place] nasal spray 00 nostril in Me dical the Branch morning and 1 [place] in the evening. Use in each nostril as directed mupirocin 2 2021-08 Yes [id number] Apply U nivers % ointment 1-22 pea-sized ity of 00:00: amount [place] 00 with a Medical q-tip or Branch clean finger to each nostril twice daily. mometasone 2021-08 Yes [id number] 1{spray Use 1 [facility] (NASONEX) 1-22 } [place] in ity of 50 00:00: each [place] mcg/actuati 00 nostril in Me dical on nasal the Branch spray morning and 1 [place] in the evening. azelastine 2021-08 Yes [id number] 1{spray Use 1 [facility] 137 mcg 1-22 } [place] ity of (0.1 %) 00:00: each [place] nasal spray 00 nostril in Me dical the Branch morning and 1 [place] in the evening. Use in each nostril as directed mupirocin 2 2021-08 Yes [id number] Apply U nivers % ointment 1-22 pea-sized ity of 00:00: amount [place] 00 with a Medical q-tip or Branch clean finger to each nostril twice daily. mometasone 2021-08 Yes [id number] 1{spray Use 1 [facility] (NASONEX) 1-22 } [place] in ity of 50 00:00: each [place] mcg/actuati 00 nostril in Me dical on nasal the Branch spray morning and 1 [place] in the evening. azelastine 2021-08 Yes [id number] 1{spray Use 1 [facility] 137 mcg 1-22 } [place] ity of (0.1 %) 00:00: each [place] nasal spray 00 nostril in Me dical the Branch morning and 1 [place] in the evening. Use in each nostril as directed mupirocin 2 2021-08 Yes [id number] Apply U nivers % ointment 1-22 pea-sized ity of 00:00: amount [place] 00 with a Medical q-tip or Branch clean finger to each nostril twice daily. mometasone 2021-08 Yes [id number] 1{spray Use 1 [facility] (NASONEX) 1-22 } [place] in ity of 50 00:00: each [place] mcg/actuati 00 nostril in Me dical on nasal the Branch spray morning and 1 [place] in the evening. azelastine 2021-08 Yes [id number] 1{spray Use 1 [facility] 137 mcg 1-22 } [place] in ity of (0.1 %) 00:00: each [place] nasal spray 00 nostril in Me dical the Branch morning and 1 [place] in the evening. Use in each nostril as directed mupirocin 2 2021-08 Yes [id number] Apply U nivers % ointment 1-22 pea-sized ity of 00:00: amount [place] 00 with a Medical q-tip or Branch clean finger to each nostril twice daily. mometasone 2021-08 Yes [id number] 1{spray Use 1 [facility] (NASONEX) 1-22 } [place] in ity of 50 00:00: each [place] mcg/actuati 00 nostril in Me dical on nasal the Branch spray morning and 1 [place] in the evening. azelastine 2021-08 Yes [id number] 1{spray Use 1 [facility] 137 mcg 1-22 } [place] in ity of (0.1 %) 00:00: each [place] nasal spray 00 nostril in Me dical the Branch morning and 1 [place] in the evening. Use in each nostril as directed mupirocin 2 2021-08 Yes [id number] Apply U nivers % ointment 1-22 pea-sized ity of 00:00: amount [place] 00 with a Medical q-tip or Branch clean finger to each nostril twice daily. mometasone 2021-08 Yes [id number] 1{spray Use 1 [facility] (NASONEX) 1-22 } [place] in ity of 50 00:00: each [place] mcg/actuati 00 nostril in [place] on nasal the Branch spray morning and 1 [place] in the evening. azelastine 2021-08 Yes [id number] 1{spray Use 1 [facility] 137 mcg 1-22 } [place] in ity of (0.1 %) 00:00: each [place] nasal spray 00 nostril in Me dical the Branch morning and 1 [place] in the evening. Use in each nostril as directed mupirocin 2 2021-08 Yes [id number] Apply U nivers % ointment 1-22 pea-sized ity of 00:00: amount [place] 00 with a Medical q-tip or Branch clean finger to each nostril twice daily. mometasone 2021-08 Yes [id number] 1{spray Use 1 [facility] (NASONEX) 1-22 } [place] in ity of 50 00:00: each [place] mcg/actuati 00 nostril in [place] dical on nasal the Branch spray morning and 1 [place] in the evening. azelastine 2021-08 Yes [id number] 1{spray Use 1 [facility] 137 mcg 1-22 } [place] in ity of (0.1 %) 00:00: each [place] nasal spray 00 nostril in Me dical the Branch morning and 1 [place] in the evening. Use in each nostril as directed mupirocin 2 2021-08 Yes [id number] Apply U nivers % ointment 1-22 pea-sized ity of 00:00: amount [place] 00 with a Medical q-tip or Branch clean finger to each nostril twice daily. mometasone 2021-08 Yes [id number] 1{spray Use 1 [facility] (NASONEX) 1-22 } [place] in ity of 50 00:00: each [place] mcg/actuati 00 nostril in Me dical on nasal the Branch spray morning and 1 [place] in the evening. azelastine 2021-08 Yes [id number] 1{spray Use 1 [facility] 137 mcg 1-22 } [place] in ity of (0.1 %) 00:00: each [place] nasal spray 00 nostril in Me dical the Branch morning and 1 [place] in the evening. Use in each nostril as directed mupirocin 2 2021-08 Yes [id number] Apply U nivers % ointment 1-22 pea-sized ity of 00:00: amount [place] 00 with a Medical q-tip or Branch clean finger to each nostril twice daily. mometasone 2021-08 Yes [id number] 1{spray Use 1 [facility] (NASONEX) 1-22 } [place] in ity of 50 00:00: each [place] mcg/actuati 00 nostril in Me dical on nasal the Branch spray morning and 1 [place] in the evening. azelastine 2021-08 Yes [id number] 1{spray Use 1 [facility] 137 mcg 1-22 } [place] in ity of (0.1 %) 00:00: each [place] nasal spray 00 nostril in Me dical the Branch morning and 1 [place] in the evening. Use in each nostril as directed mupirocin 2 2021-08 Yes [id number] Apply U nivers % ointment 1-22 pea-sized ity of 00:00: amount [place] 00 with a Medical q-tip or Branch clean finger to each nostril twice daily. mometasone 2021-08 Yes [id number] 1{spray Use 1 [facility] (NASONEX) 1-22 } [place] in ity of 50 00:00: each [place] mcg/actuati 00 nostril in Me dical on nasal the Branch spray morning and 1 [place] in the evening. azelastine 2021-08 Yes [id number] 1{spray Use 1 [facility] 137 mcg 1-22 } [place] in ity of (0.1 %) 00:00: each [place] nasal spray 00 nostril in Me dical the Branch morning and 1 [place] in the evening. Use in each nostril as directed mupirocin 2 2021-08 Yes [id number] Apply U nivers % ointment 1-22 pea-sized ity of 00:00: amount [place] 00 with a Medical q-tip or Branch clean finger to each nostril twice daily. mometasone 2021-08 Yes [id number] 1{spray Use 1 [facility] (NASONEX) 1-22 } [place] in ity of 50 00:00: each [place] mcg/actuati 00 nostril in Me dical on nasal the Branch spray morning and 1 [place] in the evening. azelastine 2021-08 Yes [id number] 1{spray Use 1 [facility] 137 mcg 1-22 } [place] in ity of (0.1 %) 00:00: each [place] nasal spray 00 nostril in Me dical the Branch morning and 1 [place] in the evening. Use in each nostril as directed mupirocin 2 2021-08 Yes [id number] Apply U nivers % ointment 1-22 pea-sized ity of 00:00: amount [place] 00 with a Medical q-tip or Branch clean finger to each nostril twice daily. mometasone 2021-08 Yes [id number] 1{spray Use 1 [facility] (NASONEX) 1-22 } [place] in ity of 50 00:00: each [place] mcg/actuati 00 nostril in Me dical on nasal the Branch spray morning and 1 [place] in the evening. azelastine 2021-08 Yes [id number] 1{spray Use 1 [facility] 137 mcg 1-22 } [place] in ity of (0.1 %) 00:00: each [place] nasal spray 00 nostril in Me dical the Branch morning and 1 [place] in the evening. Use in each nostril as directed mupirocin 2 2021-08 Yes [id number] Apply U nivers % ointment 1-22 pea-sized ity of 00:00: amount [place] 00 with a Medical q-tip or Branch clean finger to each nostril twice daily. mometasone 2021-08 Yes [id number] 1{spray Use 1 [facility] (NASONEX) 1-22 } [place] in ity of 50 00:00: each [place] mcg/actuati 00 nostril in Me dical on nasal the Branch spray morning and 1 [place] in the evening. azelastine 2021-08 Yes [id number] 1{spray Use 1 [facility] 137 mcg 1-22 } [place] in ity of (0.1 %) 00:00: each [place] nasal spray 00 nostril in Me dical the Branch morning and 1 [place] in the evening. Use in each nostril as directed mupirocin 2 2021-08 Yes [id number] Apply U nivers % ointment 1-22 pea-sized ity of 00:00: amount [place] 00 with a Medical q-tip or Branch clean finger to each nostril twice daily. mometasone 2021-08 Yes [id number] 1{spray Use 1 [facility] (NASONEX) 1-22 } [place] in ity of 50 00:00: each [place] mcg/actuati 00 nostril in Me dical on nasal the Branch spray morning and 1 [place] in the evening. azelastine 2021-08 Yes [id number] 1{spray Use 1 [facility] 137 mcg 1-22 } [place] in ity of (0.1 %) 00:00: each [place] nasal spray 00 nostril in Me dical the Branch morning and 1 [place] in the evening. Use in each nostril as directed mupirocin 2 2021-08 Yes [id number] Apply U nivers % ointment 1-22 pea-sized ity of 00:00: amount [place] 00 with a Medical q-tip or Branch clean finger to each nostril twice daily. mometasone 2021-08 Yes [id number] 1{spray Use 1 [facility] (NASONEX) 1-22 } [place] in ity of 50 00:00: each [place] mcg/actuati 00 nostril in Me dical on nasal the Branch spray morning and 1 [place] in the evening. azelastine 2021-08 Yes [id number] 1{spray Use 1 [facility] 137 mcg 1-22 } [place] in ity of (0.1 %) 00:00: each [place] nasal spray 00 nostril in Me dical the Branch morning and 1 [place] in the evening. Use in each nostril as directed mupirocin 2 2021-08 Yes [id number] Apply U nivers % ointment 1-22 pea-sized ity of 00:00: amount [place] 00 with a Medical q-tip or Branch clean finger to each nostril twice daily. montelukast 2021-08 Yes [id number] 10mg Take 1 [facility] (SINGULAIR) 0-07 tablet by ity of 10 mg 00:00: mouth in [place] tablet 00 the Medical morning. [place] montelukast 2021-08 Yes [id number] 10mg Take 1 [facility] (SINGULAIR) 0-07 tablet by ity of 10 mg 00:00: mouth in [place] tablet 00 the Medical morning. [place] montelukast 2021-08 Yes [id number] 10mg Take 1 [facility] (SINGULAIR) 0-07 tablet by ity of 10 mg 00:00: mouth in [place] tablet 00 the Medical morning. [place] montelukast 2021-08 Yes [id number] 10mg Take 1 [facility] (SINGULAIR) 0-07 tablet by ity of 10 mg 00:00: mouth in [place] tablet 00 the Medical morning. [place] montelukast 2021-08 Yes [id number] 10mg Take 1 [facility] (SINGULAIR) 0-07 tablet by ity of 10 mg 00:00: mouth in [place] tablet 00 the Medical morning. [place] montelukast 2021-08- No [id number] 10mg Take 1 [facility] (SINGULAIR) 0-07 12-30 tablet by it y of 10 mg 00:00: 00:00 mouth in [place] tablet 00 :00 the Medical morning. [place] methylPREDN 2021-08- No [id number] Take by [facility] ISolone 0-07 10-13 mouth ity of (MEDROL, 00:00: 04:59 [place] 4 mg 00 :00 CT[place] for Med ical tablets 5 days. Branch follow package directions methylPREDN 2021-08- No [id number] Take by [facility] ISolone 0-07 10-13 mouth ity of (MEDROL, 00:00: 04:59 [place] 4 mg 00 :00 CTIONS for Med ical tablets 5 days. Branch follow package directions amoxicillin 2021- No [id number] 1{tbl} Take 1 [facility] -clavulanat 9-30 10-08 tablet by it y of e 00:00: 04:59 mouth in [place] (AUGMENTIN) 00 :00 the Medical 875-125 mg morning Branch per tablet and 1 tablet in the evening. Do all this for 7 days. amoxicillin 2021-0 2021- No [id number] 1{tbl} Take 1 [facility] -clavulanat 9-30 10-08 tablet by it y of e 00:00: 04:59 mouth in [place] (AUGMENTIN) 00 :00 the Medical 875-125 mg morning Branch per tablet and 1 tablet in the evening. Do all this for 7 days. amoxicillin 2021-0 2021- No [id number] 1{tbl} Take 1 [facility] -clavulanat 9-30 10-08 tablet by it y of e 00:00: 04:59 mouth in [place] (AUGMENTIN) 00 :00 the Medical 875-125 mg morning Branch per tablet and 1 tablet in the evening. Do all this for 7 days. amoxicillin 2021-0 2021- No [id number] 1{tbl} Take 1 [facility] -clavulanat 9-30 10-08 tablet by it y of e 00:00: 04:59 mouth in [place] (AUGMENTIN) 00 :00 the Medical 875-125 mg morning Branch per tablet and 1 tablet in the evening. Do all this for 7 days. amoxicillin 2021-0 2021- No [id number] 1{tbl} Take 1 [facility] -clavulanat 9-30 10-08 tablet by it y of e 00:00: 04:59 mouth in [place] (AUGMENTIN) 00 :00 the Medical 875-125 mg morning Branch per tablet and 1 tablet in the evening. Do all this for 7 days. tamsulosin 2022-0 Yes [id number] .4mg Take 1 [facility] 0.4 mg 24 9-29 capsule by ity of hr capsule 00:00: mouth in [place] 00 the Medical morning. Branch tamsulosin 2022-0 Yes [id number] .4mg Take 1 [facility] nivers 0.4 mg 24 9-29 capsule by ity of hr capsule 00:00: mouth in [place] 00 the Medical morning. Branch tamsulosin 2022-0 Yes [id number] .4mg Take 1 [facility] nivers 0.4 mg 24 9-29 capsule by ity of hr capsule 00:00: mouth in [place] 00 the Medical morning. Branch tamsulosin 2022-0 Yes [id number] .4mg Take 1 [facility] nivers 0.4 mg 24 9-29 capsule by ity of hr capsule 00:00: mouth in [place] 00 the Medical morning. Branch tamsulosin 2022-0 Yes [id number] .4mg Take 1 [facility] nivers 0.4 mg 24 9-29 capsule by ity of hr capsule 00:00: mouth in [place] 00 the Medical morning. [facility] tamsulosin 2022-0 Yes [id number] .4mg Take 1 [facility] nivers 0.4 mg 24 9-29 capsule by ity of hr capsule 00:00: mouth in [place] 00 the Medical morning. [facility] tamsulosin 2022-0 Yes [id number] .4mg Take 1 [facility] nivers 0.4 mg 24 9-29 capsule by ity of hr capsule 00:00: mouth in [place] 00 the Medical morning. Branch tamsulosin 2022-0 Yes [id number] .4mg Take 1 [facility] 0.4 mg 24 9-29 capsule by ity of hr capsule 00:00: mouth in [place] 00 the Medical morning. Branch tamsulosin 2022-0 Yes [id number] .4mg Take 1 [facility] nivers 0.4 mg 24 9-29 capsule by ity of hr capsule 00:00: mouth in [place] 00 the Medical morning. Branch tamsulosin 2022-0 Yes [id number] .4mg Take 1 [facility] nivers 0.4 mg 24 9-29 capsule by ity of hr capsule 00:00: mouth in [place] 00 the Medical morning. Branch tamsulosin 2022-0 Yes [id number] .4mg Take 1 [facility] nivers 0.4 mg 24 9-29 capsule by ity of hr capsule 00:00: mouth in [place] 00 the Medical morning. Branch tamsulosin 2022-0 Yes [id number] .4mg Take 1 [facility] nivers 0.4 mg 24 9-29 capsule by ity of hr capsule 00:00: mouth in [place] 00 the Medical morning. Branch tamsulosin 2022-0 Yes [id number] .4mg Take 1 [facility] nivers 0.4 mg 24 9-29 capsule by ity of hr capsule 00:00: mouth in [place] 00 the Medical morning. Branch tamsulosin 2022-0 Yes [id number] .4mg Take 1 [facility] nivers 0.4 mg 24 9-29 capsule by ity of hr capsule 00:00: mouth in [place] 00 the Medical morning. Branch tamsulosin 2022-0 Yes [id number] .4mg Take 1 [facility] n[facility] 0.4 mg 24 9-29 capsule by ity of hr capsule 00:00: mouth in [place] 00 the Medical morning. Branch tamsulosin 2022-0 Yes [id number] .4mg Take 1 [facility] nivers 0.4 mg 24 9-29 capsule by ity of hr capsule 00:00: mouth in [place] 00 the Medical morning. Branch tamsulosin 2022-0 Yes [id number] .4mg Take 1 [facility] nivers 0.4 mg 24 9-29 capsule by ity of hr capsule 00:00: mouth in [place] 00 the Medical morning. Branch tamsulosin 2022-0 Yes [id number] .4mg Take 1 [facility] nivers 0.4 mg 24 9-29 capsule by ity of hr capsule 00:00: mouth in [place] 00 the Medical morning. Branch tamsulosin 2022-0 Yes [id number] .4mg Take 1 [facility] 0.4 mg 24 9-29 capsule by ity of hr capsule 00:00: mouth in [place] 00 the Medical morning. Branch tamsulosin 2022-0 Yes [id number] .4mg Take 1 [facility] 0.4 mg 24 9-29 capsule by ity of hr capsule 00:00: mouth in [place] 00 the Medical morning. Branch tamsulosin 2022-0 Yes [id number] .4mg Take 1 [facility] 0.4 mg 24 9-29 capsule by ity of hr capsule 00:00: mouth in [place] 00 the Medical morning. Branch tamsulosin 2022-0 Yes [id number] .4mg Take 1 [facility] 0.4 mg 24 9-29 capsule by ity of hr capsule 00:00: mouth in [place] 00 the Medical morning. Branch tamsulosin 2022-0 Yes [id number] .4mg Take 1 [facility] nivers 0.4 mg 24 9-29 capsule by ity of hr capsule 00:00: mouth in [place] 00 the Medical morning. Branch tamsulosin 2022-0 Yes [id number] .4mg Take 1 [facility] nivers 0.4 mg 24 -29 capsule by ity of hr capsule 00:00: mouth in [place] 00 the Medical morning. Branch tamsulosin 2022-0 Yes [id number] .4mg Take 1 [facility] 0.4 mg 24 -29 capsule by ity of hr capsule 00:00: mouth in [place] 00 the Medical morning. Branch tamsulosin 2022-0 Yes [id number] .4mg Take 1 [facility] 0.4 mg 24 - capsule by ity of hr capsule 00:00: mouth in [place] 00 the Medical morning. Branch tamsulosin 2022-0 Yes [id number] .4mg Take 1 [facility] 0.4 mg 24 04-29 capsule by ity of hr capsule 00:00: mouth in [place] 00 the Medical morning. Branch tamsulosin 2-0 Yes [id number] .4mg Take 1 [facility] 0.4 mg 24 - capsule by ity of hr capsule 00:00: mouth in [place] 00 the Medical morning. Branch tamsulosin 2-0 Yes [id number] .4mg Take 1 [facility] 0.4 mg 24 04-29 capsule by ity of hr capsule 00:00: mouth in [place] 00 the Medical morning. [facility] tamsulosin 2-0 3- No [id number] .4mg Take 1 [facility] 0.4 mg 24 04-29 capsule by ity of hr capsule 00:00: 00:00 mouth in [place] 00 :00 the Medical morning. Branch tamsulosin 2022-0 3- No [id number] .4mg Take 1 [facility] 0.4 mg 24 04-29 capsule by ity of hr capsule 00:00: 00:00 mouth in [place] 00 :00 the Medical morning. Branch TAMSULOSIN 2022-0 Yes [id number] .4mg Take 1 [facility] 0.4 mg 24 9- capsule by ity of hr capsule 00:00: mouth in [place] 00 the Medical morning Branch TAMSULOSIN 2022-0 Yes [id number] .4mg Take 1 [facility] 0.4 mg 24 9- capsule by ity of hr capsule 00:00: mouth in [place] 00 the Medical morning Branch TAMSULOSIN 2022-0 Yes [id number] .4mg Take 1 [facility] 0.4 mg 24 04-02 capsule by ity of hr capsule 00:00: mouth in [place] 00 the Medical morning Branch TAMSULOSIN 2-0 2- No [id number] .4mg Take 1 [facility] 0.4 mg 24 04-02 capsule by [facility] of hr capsule 00:00: 00:00 mouth in [place] 00 :00 the Medical morning Branch TAMSULOSIN 2-0 2- No [id number] .4mg Take 1 [facility] 0.4 mg 24 04-02 capsule by [facility] of hr capsule 00:00: 00:00 mouth in [place] 00 :00 the Medical morning Branch TAMSULOSIN 2-0 2- No [id number] .4mg Take 1 [facility] 0.4 mg 24 04-02 capsule by [facility] of hr capsule 00:00: 00:00 mouth in [place] 00 :00 the Medical morning Branch tamsulosin 2-0 Yes [id number] .4mg Take 1 [facility] (FLOMAX) 8-08 capsule by ity o f 0.4 mg 24 00:00: mouth [place] hr capsule 00 the Medical morning. Branch levoFLOXaci 2021-0 Yes [id number] 750mg Take 1 [facility] n 750 mg 8-08 tablet by it[facility] of tablet 00:00: mouth 00 every 24 Medical (twenty-fo Branch ur) hours. tamsulosin 2-0 Yes [id number] .4mg Take 1 [facility] (FLOMAX) 8-08 capsule by ity o f 0.4 mg 24 00:00: mouth [place] hr capsule 00 the Medical morning. Branch levoFLOXaci 2-0 Yes [id number] 750mg Take 1 [facility] n 750 mg 8-08 tablet by [facility] of tablet 00:00: mouth [place] 00 every 24 Medical (twenty-fo Branch ur) hours. tamsulosin 2-0 Yes [id number] .4mg Take 1 [facility] (FLOMAX) 8-08 capsule by ity o f 0.4 mg 24 00:00: mouth [place] hr capsule 00 the Medical morning. Branch levoFLOXaci 2-0 Yes [id number] 750mg Take 1 [facility] n 750 mg 8-08 tablet by ity of tablet 00:00: mouth [place] 00 every 24 Medical (twenty-fo Branch ur) hours. tamsulosin 2022-0 Yes [id number] .4mg Take 1 [facility] (FLOMAX) 8-08 capsule by ity o f 0.4 mg 24 00:00: mouth [place] hr capsule 00 the Medical morning. Branch levoFLOXaci 2022-0 Yes [id number] 750mg Take 1 [facility] n 750 mg 8-08 tablet by ity of tablet 00:00: mouth [place] 00 every 24 Medical (twenty-fo Branch ur) hours. levoFLOXaci 2022-0 Yes [id number] 750mg Take 1 [facility] n 750 mg 8-08 tablet by ity of tablet 00:00: mouth [place] 00 every 24 Medical (twenty-fo Branch ur) hours. levoFLOXaci 2022-0 Yes [id number] 750mg Take 1 [facility] n 750 mg 8-08 tablet by ity of tablet 00:00: mouth [place] 00 every 24 Medical (twenty-fo Branch ur) hours. levoFLOXaci 2022-0 Yes [id number] 750mg Take 1 [facility] n 750 mg 8-08 tablet by ity of tablet 00:00: mouth [place] 00 every 24 Medical (twenty-fo Branch ur) hours. levoFLOXaci 2022-0 Yes [id number] 750mg Take 1 [facility] n 750 mg 8-08 tablet by ity of tablet 00:00: mouth [place] 00 every 24 Medical (twenty-fo Branch ur) hours. levoFLOXaci 2022-0 Yes [id number] 750mg Take 1 [facility] n 750 mg 8-08 tablet by ity of tablet 00:00: mouth [place] 00 every 24 Medical (twenty-fo Branch ur) hours. levoFLOXaci 2022-0 Yes [id number] 750mg Take 1 [facility] n 750 mg 8-08 tablet by ity of tablet 00:00: mouth [place] 00 every 24 Medical (twenty-fo Branch ur) hours. levoFLOXaci 2022-0 Yes [id number] 750mg Take 1 [facility] n 750 mg 8-08 tablet by ity of tablet 00:00: mouth [place] 00 every 24 Medical (twenty-fo Branch ur) hours. levoFLOXaci 2022-0 Yes [id number] 750mg Take 1 [facility] n 750 mg 8-08 tablet by ity of tablet 00:00: mouth [place] 00 every 24 Medical (twenty-fo Branch ur) hours. levoFLOXaci 2022-0 Yes [id number] 750mg Take 1 [facility] n 750 mg 8-08 tablet by ity of tablet 00:00: mouth [place] 00 every 24 Medical (twenty-fo Branch ur) hours. levoFLOXaci 2022-0 Yes [id number] 750mg Take 1 [facility] n 750 mg 8-08 tablet by ity of tablet 00:00: mouth [place] 00 every 24 Medical (twenty-fo Branch ur) hours. levoFLOXaci 2022-0 Yes [id number] 750mg Take 1 [facility] n 750 mg 8-08 tablet by ity of tablet 00:00: mouth [place] 00 every 24 Medical (twenty-fo Branch ur) hours. levoFLOXaci 2022-0 Yes [id number] 750mg Take 1 [facility] n 750 mg 8-08 tablet by ity of tablet 00:00: mouth [place] 00 every 24 Medical (twenty-fo Branch ur) hours. levoFLOXaci 2022-0 Yes [id number] 750mg Take 1 [facility] n 750 mg 8-08 tablet by ity of tablet 00:00: mouth [place] 00 every 24 Medical (twenty-fo Branch ur) hours. levoFLOXaci 2022-0 Yes [id number] 750mg Take 1 [facility] n 750 mg 8-08 tablet by ity of tablet 00:00: mouth [place] 00 every 24 Medical (twenty-fo Branch ur) hours. levoFLOXaci 2022-0 Yes [id number] 750mg Take 1 [facility] n 750 mg 8-08 tablet by ity of tablet 00:00: mouth [place] 00 every 24 Medical (twenty-fo Branch ur) hours. levoFLOXaci 2022-0 Yes [id number] 750mg Take 1 [facility] n 750 mg 8-08 tablet by ity of tablet 00:00: mouth [place] 00 every 24 Medical (twenty-fo Branch ur) hours. levoFLOXaci 2022-0 Yes [id number] 750mg Take 1 [facility] n 750 mg 8-08 tablet by ity of tablet 00:00: mouth [place] 00 every 24 Medical (twenty-fo Branch ur) hours. levoFLOXaci 2022-0 Yes [id number] 750mg Take 1 [facility] n 750 mg 8-08 tablet by ity of tablet 00:00: mouth [place] 00 every 24 Medical (twenty-fo Branch ur) hours. levoFLOXaci 2022-0 Yes [id number] 750mg Take 1 [facility] n 750 mg 03-08 tablet by ity of tablet 00:00: mouth [place] 00 every 24 Medical (twenty- Branch ur) hours. levoFLOXaci 2021-0 2022- No [id number] 750mg Take 1 [facility] n 750 mg 03-08 tablet by ity o f tablet 00:00: 00:00 mouth [place] 00 :00 every 24 Medical (twenty- Branch ur) hours. levoFLOXaci 2021-0 2022- No [id number] 750mg Take 1 [facility] n 750 mg 03-08 tablet by ity o f tablet 00:00: 00:00 mouth [place] 00 :00 every 24 Medical (twenty- Branch ur) hours. levoFLOXaci 2021-0 2022- No [id number] 750mg Take 1 [facility] n 750 mg 03-08 tablet by ity o f tablet 00:00: 00:00 mouth [place] 00 :00 every 24 Medical ([facility] Branch ur) hours. levoFLOXaci 2021-0 2022- No [id number] 750mg Take 1 [facility] n 750 mg 03-08 tablet by ity o f tablet 00:00: 00:00 mouth [place] 00 :00 every 24 Medical ([facility]- Branch ur) hours. levoFLOXaci 2021-0 2022- No [id number] 750mg Take 1 [facility] n 750 mg 03-08 tablet by ity o f tablet 00:00: 00:00 mouth [place] 00 :00 every 24 Medical (twenty- Branch ur) hours. tamsulosin 2021-0 2021- No [id number] .4mg Take 1 [facility] (FLOMAX) 03-08 capsule by ity of 0.4 mg 24 00:00: 00:00 mouth [place] capsule 00 :00 the Medical morning. Branch memantine 2-0 Yes 10mg Take 10 mg [facility] [place] 10 mg 6-26 by mouth ity of tablet 00:00: in the [place] 00 morning Medical and 10 mg Branch in the evening. memantine 2022-0 Yes 10mg Take 10 mg [facility] [place] 10 mg 6-26 by mouth ity of tablet 00:00: in the [place] 00 morning Medical and 10 mg Branch in the evening. memantine 2022-0 Yes 10mg Take 10 mg [facility] [place] 10 mg 6-26 by mouth ity of tablet 00:00: in the [place] morning Medical and 10 mg Branch in the evening. memantine 2022-0 Yes 10mg Take 10 mg [facility] [place] 10 mg 6-26 by mouth ity of tablet 00:00: in the [place] morning Medical and 10 mg Branch in the evening. memantine 2022-0 Yes 10mg Take 10 mg [facility] [place] 10 mg 6-26 by mouth ity of tablet 00:00: in the [place] morning Medical and 10 mg Branch in the evening. memantine 2022-0 Yes 10mg Take 10 mg [facility] [place] 10 mg 6-26 by mouth ity of tablet 00:00: in the [place] morning Medical and 10 mg Branch in the evening. memantine 2022-0 Yes 10mg Take 10 mg [facility] [place] 10 mg 6-26 by mouth ity of tablet 00:00: in the [place] morning Medical and 10 mg Branch in the evening. memantine 2022-0 Yes 10mg Take 10 mg [facility] [place] 10 mg 6-26 by mouth ity of tablet 00:00: in the [place] morning Medical and 10 mg Branch in the evening. memantine 2022-0 Yes 10mg Take 10 mg [facility] [place] 10 mg 6-26 by mouth ity of tablet 00:00: in the [place] morning Medical and 10 mg Branch in the evening. memantine 2022-0 Yes 10mg Take 10 mg [facility] [place] 10 mg 6-26 by mouth ity of tablet 00:00: in the [place] morning Medical and 10 mg Branch in the evening. memantine 2022-0 Yes 10mg Take 10 mg [facility] [place] 10 mg 6-26 by mouth ity of tablet 00:00: in the [place] morning Medical and 10 mg Branch in the evening. memantine 2022-0 Yes 10mg Take 10 mg [facility] [place] 10 mg 6-26 by mouth ity of tablet 00:00: in the [place] morning Medical and 10 mg Branch in the evening. memantine 2022-0 Yes 10mg Take 10 mg [facility] [place] 10 mg 6-26 by mouth ity of tablet 00:00: in the [place] morning Medical and 10 mg Branch in the evening. memantine 2022-0 Yes 10mg Take 10 mg [facility] [place] 10 mg 6-26 by mouth ity of tablet 00:00: in the [place] morning Medical and 10 mg Branch in the evening. memantine 2022-0 Yes 10mg Take 10 mg [facility] [place] 10 mg 6-26 by mouth ity of tablet 00:00: in the [place] morning Medical and 10 mg Branch in the evening. memantine 2022-0 Yes 10mg Take 10 mg [facility] [place] 10 mg 6-26 by mouth ity of tablet 00:00: in the [place] morning Medical and 10 mg Branch in the evening. memantine 2022-0 Yes 10mg Take 10 mg [facility] [place] 10 mg 6-26 by mouth ity of tablet 00:00: in the [place] morning Medical and 10 mg Branch in the evening. memantine 2022-0 Yes 10mg Take 10 mg [facility] [place] 10 mg 6-26 by mouth ity of tablet 00:00: in the [place] morning Medical and 10 mg Branch in the evening. memantine 2022-0 Yes 10mg Take 10 mg [facility] [place] 10 mg 6-26 by mouth ity of tablet 00:00: in the [place] morning Medical and 10 mg Branch in the evening. memantine 2022-0 Yes 10mg Take 10 mg [facility] [place] 10 mg 6-26 by mouth ity of tablet 00:00: in the [place] morning Medical and 10 mg Branch in the evening. memantine 2022-0 Yes 10mg Take 10 mg [facility] [place] 10 mg 6-26 by mouth ity of tablet 00:00: in the [place] morning Medical and 10 mg Branch in the evening. memantine 2022-0 Yes 10mg Take 10 mg [facility] [place] 10 mg 6-26 by mouth ity of tablet 00:00: in the [place] morning Medical and 10 mg Branch in the evening. memantine 2022-0 Yes 10mg Take 10 mg [facility] [place] 10 mg 6-26 by mouth ity of tablet 00:00: in the [place] morning Medical and 10 mg Branch in the evening. memantine 2022-0 Yes 10mg Take 10 mg [facility] [place] 10 mg 6-26 by mouth ity of tablet 00:00: in the [place] morning Medical and 10 mg Branch in the evening. memantine 2022-0 Yes 10mg Take 10 mg [facility] [place] 10 mg 6-26 by mouth ity of tablet 00:00: in the [place] morning Medical and 10 mg Branch in the evening. memantine 2022-0 Yes 10mg Take 10 mg [facility] [place] 10 mg 6-26 by mouth ity of tablet 00:00: in the [place] morning Medical and 10 mg Branch in the evening. memantine 2022-0 Yes 10mg Take 10 mg [facility] [place] 10 mg 6-26 by mouth ity of tablet 00:00: in the [place] morning Medical and 10 mg Branch in the evening. memantine 2022-0 Yes 10mg Take 10 mg [facility] [place] 10 mg 6-26 by mouth ity of tablet 00:00: in the [place] morning Medical and 10 mg Branch in the evening. memantine 2022-0 Yes 10mg Take 10 mg [facility] [place] 10 mg 6-26 by mouth ity of tablet 00:00: in the [place] morning Medical and 10 mg Branch in the evening. memantine 2022-0 Yes 10mg Take 10 mg [facility] [place] 10 mg 6-26 by mouth ity of tablet 00:00: in the [place] morning Medical and 10 mg Branch in the evening. memantine 2022-0 Yes 10mg Take 10 mg [facility] [place] 10 mg 6-26 by mouth ity of tablet 00:00: in the [place] morning Medical and 10 mg Branch in the evening. memantine 2022-0 Yes 10mg Take 10 mg [facility] [place] 10 mg 6-26 by mouth ity of tablet 00:00: in the [place] morning Medical and 10 mg Branch in the evening. memantine 2022-0 Yes 10mg Take 10 mg [facility] [place] 10 mg 6-26 by mouth ity of tablet 00:00: in the [place] morning Medical and 10 mg Branch in the evening. memantine 2022-0 Yes 10mg Take 10 mg [facility] [place] 10 mg 6-26 by mouth ity of tablet 00:00: in the [place] morning Medical and 10 mg Branch in the evening. memantine 2022-0 Yes 10mg Take 10 mg [facility] [place] 10 mg 6-26 by mouth ity of tablet 00:00: in the [place] morning Medical and 10 mg Branch in the evening. memantine 2022-0 Yes 10mg Take 10 mg [facility] [place] 10 mg 6-26 by mouth ity of tablet 00:00: in the [place] morning Medical and 10 mg Branch in the evening. memantine 2022-0 Yes 10mg Take 10 mg [facility] [place] 10 mg 6-26 by mouth ity of tablet 00:00: in the [place] morning Medical and 10 mg Branch in the evening. memantine 2022-0 Yes 10mg Take 10 mg [facility] [place] 10 mg 6-26 by mouth ity of tablet 00:00: in the [place] morning Medical and 10 mg Branch in the evening. memantine 2022-0 Yes 10mg Take 10 mg [facility] [place] 10 mg 6-26 by mouth ity of tablet 00:00: in the [place] morning Medical and 10 mg Branch in the evening. memantine 2022-0 Yes 10mg Take 10 mg [facility] [place] 10 mg 6-26 by mouth ity of tablet 00:00: in the [place] morning Medical and 10 mg Branch in the evening. memantine 2022-0 Yes 10mg Take 10 mg [facility] [place] 10 mg 6-26 by mouth ity of tablet 00:00: in the [place] morning Medical and 10 mg Branch in the evening. memantine 2022-0 Yes 10mg Take 10 mg [facility] [place] 10 mg 6-26 by mouth ity of tablet 00:00: in the [place] morning Medical and 10 mg Branch in the evening. memantine 2022-0 Yes 10mg Take 10 mg [facility] [place] 10 mg 6-26 by mouth ity of tablet 00:00: in the [place] morning Medical and 10 mg Branch in the evening. memantine 2022-0 Yes 10mg Take 10 mg [facility] [place] 10 mg 6-26 by mouth ity of tablet 00:00: in the [place] morning Medical and 10 mg Branch in the evening. memantine 2022-0 Yes 10mg Take 10 mg [facility] [place] 10 mg 6-26 by mouth ity of tablet 00:00: in the [place] morning Medical and 10 mg Branch in the evening. memantine 2022-0 Yes 10mg Take 10 mg [facility] [place] 10 mg 6-26 by mouth ity of tablet 00:00: in the [place] morning Medical and 10 mg Branch in the evening. memantine 2022-0 Yes 10mg Take 10 mg [facility] [place] 10 mg 6-26 by mouth ity of tablet 00:00: in the [place] morning Medical and 10 mg Branch in the evening. memantine 2022-0 Yes 10mg Take 10 mg [facility] [place] 10 mg 6-26 by mouth ity of tablet 00:00: in the [place] morning Medical and 10 mg Branch in the evening. memantine 2022-0 Yes 10mg Take 10 mg [facility] [place] 10 mg 6-26 by mouth ity of tablet 00:00: in the [place] morning Medical and 10 mg Branch in the evening. memantine 2022-0 Yes 10mg Take 10 mg [facility] [place] 10 mg 6-26 by mouth ity of tablet 00:00: in the [place] morning Medical and 10 mg Branch in the evening. memantine 2022-0 Yes 10mg Take 10 mg [facility] [place] 10 mg 6-26 by mouth ity of tablet 00:00: in the [place] morning Medical and 10 mg Branch in the evening. memantine 2022-0 Yes 10mg Take 10 mg [facility] [place] 10 mg 6-26 by mouth ity of tablet 00:00: in the [place] morning Medical and 10 mg Branch in the evening. memantine 2022-0 Yes 10mg Take 10 mg [facility] [place] 10 mg 6-26 by mouth ity of tablet 00:00: in the [place] morning Medical and 10 mg Branch in the evening. memantine 2022-0 Yes 10mg Take 10 mg [facility] [place] 10 mg 6-26 by mouth ity of tablet 00:00: in the [place] morning Medical and 10 mg Branch in the evening. memantine 2022-0 Yes 10mg Take 10 mg [facility] [place] 10 mg 6-26 by mouth ity of tablet 00:00: in the [place] morning Medical and 10 mg Branch in the evening. memantine 2022-0 Yes 10mg Take 10 mg [facility] [place] 10 mg 6-26 by mouth ity of tablet 00:00: in the [place] morning Medical and 10 mg Branch in the evening. memantine 2022-0 Yes 10mg Take 10 mg [facility] [place] 10 mg 6-26 by mouth ity of tablet 00:00: in the [place] morning Medical and 10 mg Branch in the evening. memantine 2022-0 Yes 10mg Take 10 mg [facility] [place] 10 mg 6-26 by mouth ity of tablet 00:00: in the [place] morning Medical and 10 mg Branch in the evening. lisinopriL- 2022-0 Yes [id number] 1{tbl} Take 1 [facility] hydrochloro 2-23 tablet by ity of thiazide 00:00: mouth [place] 20-12.5 mg 00 daily. Medical per tablet Branch hydroCHLORO 2021-0 Yes [id number] 25mg Take 1 [facility] thiazide 25 2-23 tablet by ity of mg tablet 00:00: mouth [place] 00 daily. Medical Branch atorvastati 0 Yes [id number] 20mg Take 1 [facility] n 20 mg 2-23 tablet by ity of tablet 00:00: mouth at [place] 00 bedtime. Medical Branch lisinopriL- 0 Yes [id number] 1{tbl} Take 1 [facility] hydrochloro 2-23 tablet by ity of thiazide 00:00: mouth [place] 20-12.5 mg 00 daily. Medical per tablet Branch hydroCHLORO 0 Yes [id number] 25mg Take 1 [facility] thiazide 25 2-23 tablet by ity of mg tablet 00:00: mouth [place] 00 daily. Medical Branch atorvastati Yes [id number] 20mg Take 1 [facility] n 20 mg 2-23 tablet by ity of tablet 00:00: mouth at [place] 00 bedtime. Medical Branch lisinopriL- Yes [id number] 1{tbl} Take 1 [facility] hydrochloro 2-23 tablet by ity of thiazide 00:00: mouth [place] 20-12.5 mg 00 daily. Medical per tablet Branch hydroCHLORO Yes [id number] 25mg Take 1 [facility] thiazide 25 2-23 tablet by ity of mg tablet 00:00: mouth [place] 00 daily. Medical Branch atorvastati Yes [id number] 20mg Take 1 [facility] n 20 mg 2-23 tablet by ity of tablet 00:00: mouth at [place] 00 bedtime. Medical Branch lisinopriL- Yes [id number] 1{tbl} Take 1 [facility] hydrochloro 2-23 tablet by ity of thiazide 00:00: mouth [place] 20-12.5 mg 00 daily. Medical per tablet Branch hydroCHLORO 0 Yes [id number] 25mg Take 1 [facility] thiazide 25 2-23 tablet by ity of mg tablet 00:00: mouth [place] 00 daily. Medical Branch atorvastati Yes [id number] 20mg Take 1 [facility] n 20 mg 2-23 tablet by ity of tablet 00:00: mouth at [place] 00 bedtime. Medical Branch lisinopriL- Yes [id number] 1{tbl} Take 1 [facility] hydrochloro 2-23 tablet by ity of thiazide 00:00: mouth [place] 20-12.5 mg 00 daily. Medical per tablet Branch hydroCHLORO Yes [id number] 25mg Take 1 [facility] thiazide 25 2-23 tablet by ity of mg tablet 00:00: mouth [place] 00 daily. Medical Branch atorvastati Yes [id number] 20mg Take 1 [facility] n 20 mg 2-23 tablet by ity of tablet 00:00: mouth at [place] 00 bedtime. Medical Branch lisinopriL- Yes [id number] 1{tbl} Take 1 [facility] hydrochloro 2-23 tablet by ity of thiazide 00:00: mouth [place] 20-12.5 mg 00 daily. Medical per tablet Branch hydroCHLORO Yes [id number] 25mg Take 1 [facility] thiazide 25 2-23 tablet by ity of mg tablet 00:00: mouth [place] 00 daily. Medical Branch atorvastati Yes [id number] 20mg Take 1 [facility] n 20 mg 2-23 tablet by ity of tablet 00:00: mouth at [place] 00 bedtime. Medical Branch lisinopriL- Yes [id number] 1{tbl} Take 1 [facility] hydrochloro 2-23 tablet by ity of thiazide 00:00: mouth [place] 20-12.5 mg 00 daily. Medical per tablet Branch hydroCHLORO Yes [id number] 25mg Take 1 [facility] thiazide 25 2-23 tablet by ity of mg tablet 00:00: mouth [place] 00 daily. Medical Branch atorvastati Yes [id number] 20mg Take 1 [facility] n 20 mg 2-23 tablet by ity of tablet 00:00: mouth at [place] 00 bedtime. Medical Branch lisinopriL- Yes [id number] 1{tbl} Take 1 [facility] hydrochloro 2-23 tablet by ity of thiazide 00:00: mouth [place] 20-12.5 mg 00 daily. Medical per tablet Branch hydroCHLORO Yes [id number] 25mg Take 1 [facility] thiazide 25 2-23 tablet by ity of mg tablet 00:00: mouth [place] 00 daily. Medical Branch atorvastati Yes [id number] 20mg Take 1 [facility] n 20 mg 2-23 tablet by ity of tablet 00:00: mouth at [place] 00 bedtime. Medical Branch lisinopriL- Yes [id number] 1{tbl} Take 1 [facility] hydrochloro 2-23 tablet by ity of thiazide 00:00: mouth [place] 20-12.5 mg 00 daily. Medical per tablet Branch hydroCHLORO Yes [id number] 25mg Take 1 [facility] thiazide 25 2-23 tablet by ity of mg tablet 00:00: mouth [place] 00 daily. Medical Branch atorvastati Yes [id number] 20mg Take 1 [facility] n 20 mg 2-23 tablet by ity of tablet 00:00: mouth at [place] 00 bedtime. Medical Branch lisinopriL- Yes [id number] 1{tbl} Take 1 [facility] hydrochloro 2-23 tablet by ity of thiazide 00:00: mouth [place] 20-12.5 mg 00 daily. Medical per tablet Branch hydroCHLORO Yes [id number] 25mg Take 1 [facility] thiazide 25 2-23 tablet by ity of mg tablet 00:00: mouth [place] 00 daily. Medical Branch atorvastati Yes [id number] 20mg Take 1 [facility] n 20 mg 2-23 tablet by ity of tablet 00:00: mouth at [place] 00 bedtime. Medical Branch lisinopriL- Yes [id number] 1{tbl} Take 1 [facility] hydrochloro 2-23 tablet by ity of thiazide 00:00: mouth [place] 20-12.5 mg 00 daily. Medical per tablet Branch hydroCHLORO Yes [id number] 25mg Take 1 [facility] thiazide 25 2-23 tablet by ity of mg tablet 00:00: mouth [place] 00 daily. Medical Branch atorvastati Yes [id number] 20mg Take 1 [facility] n 20 mg 2-23 tablet by ity of tablet 00:00: mouth at [place] 00 bedtime. Medical Branch lisinopriL- Yes [id number] 1{tbl} Take 1 [facility] hydrochloro 2-23 tablet by ity of thiazide 00:00: mouth [place] 20-12.5 mg 00 daily. Medical per tablet Branch hydroCHLORO Yes [id number] 25mg Take 1 [facility] thiazide 25 2-23 tablet by ity of mg tablet 00:00: mouth [place] 00 daily. Medical Branch atorvastati Yes [id number] 20mg Take 1 [facility] n 20 mg 2-23 tablet by ity of tablet 00:00: mouth at [place] 00 bedtime. Medical Branch lisinopriL- Yes [id number] 1{tbl} Take 1 [facility] hydrochloro 2-23 tablet by ity of thiazide 00:00: mouth [place] 20-12.5 mg 00 daily. Medical per tablet Branch hydroCHLORO Yes [id number] 25mg Take 1 [facility] thiazide 25 2-23 tablet by ity of mg tablet 00:00: mouth [place] 00 daily. Medical Branch atorvastati Yes [id number] 20mg Take 1 [facility] n 20 mg 2-23 tablet by ity of tablet 00:00: mouth at [place] 00 bedtime. Medical Branch lisinopriL- Yes [id number] 1{tbl} Take 1 [facility] hydrochloro 2-23 tablet by ity of thiazide 00:00: mouth [place] 20-12.5 mg 00 daily. Medical per tablet Branch hydroCHLORO Yes [id number] 25mg Take 1 [facility] thiazide 25 2-23 tablet by ity of mg tablet 00:00: mouth [place] 00 daily. Medical Branch atorvastati Yes [id number] 20mg Take 1 [facility] n 20 mg 2-23 tablet by ity of tablet 00:00: mouth at [place] 00 bedtime. Medical Branch lisinopriL- Yes [id number] 1{tbl} Take 1 [facility] hydrochloro 2-23 tablet by ity of thiazide 00:00: mouth [place] 20-12.5 mg 00 daily. Medical per tablet Branch hydroCHLORO Yes [id number] 25mg Take 1 [facility] thiazide 25 2-23 tablet by ity of mg tablet 00:00: mouth [place] 00 daily. Medical Branch atorvastati Yes [id number] 20mg Take 1 [facility] n 20 mg 2-23 tablet by ity of tablet 00:00: mouth at [place] 00 bedtime. Medical Branch lisinopriL- Yes [id number] 1{tbl} Take 1 [facility] hydrochloro 2-23 tablet by ity of thiazide 00:00: mouth [place] 20-12.5 mg 00 daily. Medical per tablet Branch hydroCHLORO Yes [id number] 25mg Take 1 [facility] thiazide 25 2-23 tablet by ity of mg tablet 00:00: mouth [place] 00 daily. Medical Branch atorvastati Yes [id number] 20mg Take 1 [facility] n 20 mg 2-23 tablet by ity of tablet 00:00: mouth at [place] 00 bedtime. Medical Branch lisinopriL- Yes [id number] 1{tbl} Take 1 [facility] hydrochloro 2-23 tablet by ity of thiazide 00:00: mouth [place] 20-12.5 mg 00 daily. Medical per tablet Branch hydroCHLORO Yes [id number] 25mg Take 1 [facility] thiazide 25 2-23 tablet by ity of mg tablet 00:00: mouth [place] 00 daily. Medical Branch atorvastati Yes [id number] 20mg Take 1 [facility] n 20 mg 2-23 tablet by ity of tablet 00:00: mouth at [place] 00 bedtime. Medical Branch lisinopriL- Yes [id number] 1{tbl} Take 1 [facility] hydrochloro 2-23 tablet by ity of thiazide 00:00: mouth [place] 20-12.5 mg 00 daily. Medical per tablet Branch hydroCHLORO Yes [id number] 25mg Take 1 [facility] thiazide 25 2-23 tablet by ity of mg tablet 00:00: mouth [place] 00 daily. Medical Branch atorvastati Yes [id number] 20mg Take 1 [facility] n 20 mg 2-23 tablet by ity of tablet 00:00: mouth at [place] 00 bedtime. Medical Branch lisinopriL- Yes [id number] 1{tbl} Take 1 [facility] hydrochloro 2-23 tablet by ity of thiazide 00:00: mouth [place] 20-12.5 mg 00 daily. Medical per tablet Branch hydroCHLORO 0 Yes [id number] 25mg Take 1 [facility] thiazide 25 2-23 tablet by ity of mg tablet 00:00: mouth [place] 00 daily. Medical Branch lisinopriL- 0 Yes [id number] 1{tbl} Take 1 [facility] hydrochloro 2-23 tablet by ity of thiazide 00:00: mouth [place] 20-12.5 mg 00 daily. Medical per tablet Branch hydroCHLORO Yes [id number] 25mg Take 1 [facility] thiazide 25 2-23 tablet by ity of mg tablet 00:00: mouth [place] 00 daily. Medical Branch lisinopriL- Yes [id number] 1{tbl} Take 1 [facility] hydrochloro 2-23 tablet by ity of thiazide 00:00: mouth [place] 20-12.5 mg 00 daily. Medical per tablet Branch hydroCHLORO Yes [id number] 25mg Take 1 [facility] thiazide 25 2-23 tablet by ity of mg tablet 00:00: mouth [place] 00 daily. Medical Branch lisinopriL- Yes [id number] 1{tbl} Take 1 [facility] hydrochloro 2-23 tablet by ity of thiazide 00:00: mouth [place] 20-12.5 mg 00 daily. Medical per tablet Branch hydroCHLORO Yes [id number] 25mg Take 1 [facility] thiazide 25 2-23 tablet by ity of mg tablet 00:00: mouth [place] 00 daily. Medical Branch lisinopriL- Yes [id number] 1{tbl} Take 1 [facility] hydrochloro 2-23 tablet by ity of thiazide 00:00: mouth [place] 20-12.5 mg 00 daily. Medical per tablet Branch hydroCHLORO Yes [id number] 25mg Take 1 [facility] thiazide 25 2-23 tablet by ity of mg tablet 00:00: mouth [place] 00 daily. Medical Branch lisinopriL- Yes [id number] 1{tbl} Take 1 [facility] hydrochloro 2-23 tablet by ity of thiazide 00:00: mouth [place] 20-12.5 mg 00 daily. Medical per tablet Branch hydroCHLORO Yes [id number] 25mg Take 1 [facility] thiazide 25 2-23 tablet by ity of mg tablet 00:00: mouth [place] 00 daily. Medical Branch lisinopriL- Yes [id number] 1{tbl} Take 1 [facility] hydrochloro 2-23 tablet by ity of thiazide 00:00: mouth [place] 20-12.5 mg 00 daily. Medical per tablet Branch hydroCHLORO Yes [id number] 25mg Take 1 [facility] thiazide 25 2-23 tablet by ity of mg tablet 00:00: mouth [place] 00 daily. Medical Branch lisinopriL- Yes [id number] 1{tbl} Take 1 [facility] hydrochloro 2-23 tablet by ity of thiazide 00:00: mouth [place] 20-12.5 mg 00 daily. Medical per tablet Branch hydroCHLORO 0 Yes [id number] 25mg Take 1 [facility] thiazide 25 2-23 tablet by ity of mg tablet 00:00: mouth [place] 00 daily. Medical Branch lisinopriL- Yes [id number] 1{tbl} Take 1 [facility] hydrochloro 2-23 tablet by ity of thiazide 00:00: mouth [place] 20-12.5 mg 00 daily. Medical per tablet Branch hydroCHLORO Yes [id number] 25mg Take 1 [facility] thiazide 25 2-23 tablet by ity of mg tablet 00:00: mouth [place] 00 daily. Medical Branch lisinopriL- Yes [id number] 1{tbl} Take 1 [facility] hydrochloro 2-23 tablet by ity of thiazide 00:00: mouth [place] 20-12.5 mg 00 daily. Medical per tablet Branch hydroCHLORO Yes [id number] 25mg Take 1 [facility] thiazide 25 2-23 tablet by ity of mg tablet 00:00: mouth [place] 00 daily. Medical Branch lisinopriL- Yes [id number] 1{tbl} Take 1 [facility] hydrochloro 2-23 tablet by ity of thiazide 00:00: mouth [place] 20-12.5 mg 00 daily. Medical per tablet Branch hydroCHLORO 0 Yes [id number] 25mg Take 1 [facility] thiazide 25 2-23 tablet by ity of mg tablet 00:00: mouth [place] 00 daily. Medical Branch hydroCHLORO 0 Yes [id number] 25mg Take 1 [facility] thiazide 25 2-23 tablet by ity of mg tablet 00:00: mouth [place] 00 daily. Medical Branch hydroCHLORO 0 2022- No [id number] 25mg Take 1 [facility] thiazide 25 2-23 05-12 tablet by it y of mg tablet 00:00: 00:00 mouth [place] 00 :00 daily. [facility] Branch lisinopriL- 0 2022- No [id number] 1{tbl} Take 1 [facility] hydrochloro 2-23 04-20 tablet by it y of thiazide 00:00: 00:00 mouth [place] 20-12.5 mg 00 :00 daily. Medical per tablet Branch atorvastati 0 2021- No [id number] 20mg Take 1 Univers n 20 mg 2-23 12-14 tablet by ity of tablet 00:00: 00:00 mouth at [place] 00 :00 bedtime. Medical Branch memantine Yes = 1 tab, Hugh natalia 10 mg oral 1-29 PO, BID, # l tablet 15:34: 180 tab, 1 Andressa nn 00 Refill(s), Pharmacy: [facility], 180.34, cm, 08/29/20 9:22:00 [employer], Height, 165.455, kg, 08/29/20 9:22:00 [employer], Weight acyclovir 2019-08 Yes 800 mg = 1 Me moria 800 mg oral 0-30 tab, PO, l tablet 16:18: 5X Day, X John n 00 14 day, # 70 tab, 0 Refill(s), Pharmacy: [facility], 175.26, cm, 04/18/20 15:40:00 CDT, Height, 160, kg, 04/18/20 15:40:00 CDT, Weight {2019-08 Yes See Memoria (Methylpred 0-30 Instructio l nisolone 4 16:18: ns, PO, Herm marivel MG Oral 00 Take by Tablet mouth as [Medrol]) } directed Pack on label., [Medrol X 6 day, # Dosepak] 21 tab, 0 Refill(s), Pharmacy: [facility], 175.26, cm, 04/18/20 15:40:00 CDT, Height, 160, kg, 04/18/20 15:40:00 CDT, Weight memantine 2019-08 Yes = 1 tab, Hugh natalia 10 mg oral 0-30 PO, BID, # l tablet 16:16: 180 tab, 1 Andressa nn 00 Refill(s), Pharmacy: [facility], 175.26, cm, 04/18/20 15:40:00 CDT, Height, 160, kg, 04/18/20 15:40:00 CDT, Weight memantine Yes = 1 tab, Hugh natalia 10 mg oral 9-18 PO, BID, # l tablet 22:02: 180 tab, 1 Andressa nn 00 Refill(s), Pharmacy: [place] [address], 175.26, cm, 04/18/20 15:40:00 CDT, Height, 160, kg, 04/18/20 15:40:00 CDT, Weight memantine Yes = 1 tab, Hugh natalia 10 mg oral 5-08 PO, BID, # l tablet 20:46: 180 tab, 1 Andressa nn 00 Refill(s), Pharmacy: [place] [address] memantine 2018-08 Yes = 1 tab, Hugh natalia 10 mg oral 0-03 PO, BID, # l tablet 15:08: 60 tab, 5 John n 52 Refill(s), Pharmacy: [place] [address] memantine Yes = 1 tab, Hugh natalia 10 mg oral 3-04 PO, BID, # l tablet 20:12: 60 tab, [place] 40 Refill(s) 3, Pharmacy: [facility] gabapentin 2017-08 Yes See Memoria 300 MG Oral 0-02 Instructio l Capsule 15:02: ns, PRN [place] 35 Other -See Comment, 1 cap PO q12h PRN, # 30 cap, 3 Refill(s), Pharmacy: [place] [address] memantine 2017-08 No See Memoria 10 mg oral 0-02 Instructio l tablet 14:31: ns, TAKE 1 Andressa nn 51 TABLET BY MOUTH TWICE DAILY, # 60 tab, 3 Refill(s), Pharmacy: [place] [address] gabapentin 2017-08 No 300 mg = 1 M emoria 300 MG Oral 0-02 cap, PO, l Capsule 14:31: PRN, PRN John n 00 Other -See Comment, X 30 day, # 30 cap, 3 Refill(s), Pharmacy: [facility] Acetaminoph No 1 tab, PO, Memoria en 325 MG / 3-15 Q4H, 0 l Hydrocodone 14:59: Refill(s) H ermann Bitartrate 00 10 MG Oral Tablet [[place]borne 10/325] donepezil 5 No 5 mg = 1 Me moria mg oral 3-15 tab, PO, l tablet 14:59: Bedtime, 0 Andressa nn 00 Refill(s) aspirin 81 2017- Yes 81 mg = 1 Me moria mg tablet, 2-28 tab, PO, l enteric 19:41: Daily, # John n coated 00 90 tab, 3 Refill(s) cyclobenzap Yes 10 mg = 1 M emoria rine 10 mg 2-28 tab, PO, l oral tablet 19:41: Daily, PRN [place] 00 for spasms, # 30 tab, 0 Refill(s) hydrOXYzine 2018 Yes 25 mg = 1 M emoria hydrochlori 2-28 tab, PO, l de 25 mg 19:41: QID, PRN Andressa nn oral tablet 00 Itching, # 40 tab, 0 Refill(s) hydrochloro Yes 1 tab, PO, Memoria thiazide-li 2-28 Daily, # l sinopril 19:41: 30 tab, 0 Herm marivel 12.5 mg-20 00 Refill(s) mg oral tablet Immunizations Ordered Filled Date Status Comments Source Immunization Name Immunization Name SARS-COV-2 COVID-19 2022-04-29 Completed Unive rsity of VACCINE 18 YRS+, 00:00:00 [place] Me dical BIVALENT 0.5ML, IM, Branc h (MODERNA BOOSTER) Influenza Virus 2022-04-29 Completed Universit y of Vaccine Quad IM, 00:00:00 [place] Ks dical Preserv and ABX Branch Free 6 MO-64 YRS SARS-COV-2 COVID-19 2022-04-29 Completed Unive rsity of VACCINE 18 YRS+, 00:00:00 [place] Me dical BIVALENT 0.5ML, IM, Branc h (MODERNA BOOSTER) Influenza Virus 2022-04-29 Completed Universit y of Vaccine Quad IM, 00:00:00 [place] Me dical Preserv and ABX Branch Free 6 MO-64 YRS SARS-COV-2 COVID-19 2022-04-29 Completed Unive rsity of VACCINE 18 YRS+, 00:00:00 [place] Me dical BIVALENT 0.5ML, IM, Branc h (MODERNA BOOSTER) Influenza Virus 2022-04-29 Completed Universit y of Vaccine Quad IM, 00:00:00 [place] Me dical Preserv and ABX Branch Free 6 MO-64 YRS SARS-COV-2 COVID-19 2022-04-29 Completed Unive rsity of VACCINE 18 YRS+, 00:00:00 [place] Me dical BIVALENT 0.5ML, IM, Branc h (MODERNA BOOSTER) Influenza Virus 2022-04-29 Completed Universit y of Vaccine Quad IM, 00:00:00 [place] Me dical Preserv and ABX Branch Free 6 MO-64 YRS SARS-COV-2 COVID-19 2022-04-29 Completed Unive rsity of VACCINE 18 YRS+, 00:00:00 [place] Me dical BIVALENT 0.5ML, IM, Branc h (MODERNA BOOSTER) Influenza Virus 2022-04-29 Completed Universit y of Vaccine Quad IM, 00:00:00 [place] Me dical Preserv and ABX Branch Free 6 MO-64 YRS SARS-COV-2 COVID-19 2022-04-29 Completed Unive rsity of VACCINE 18 YRS+, 00:00:00 [place] Me dical BIVALENT 0.5ML, IM, Branc h (MODERNA BOOSTER) Influenza Virus 2022-04-29 Completed Universit y of Vaccine Quad IM, 00:00:00 [place] Me dical Preserv and ABX Branch Free 6 MO-64 YRS SARS-COV-2 COVID-19 2022-04-29 Completed Unive rsity of VACCINE 18 YRS+, 00:00:00 [place] Me dical BIVALENT 0.5ML, IM, Branc h (MODERNA BOOSTER) Influenza Virus 2022-04-29 Completed Universit y of Vaccine Quad IM, 00:00:00 [place] Me dical Preserv and ABX Branch Free 6 MO-64 YRS SARS-COV-2 COVID-19 2022-04-29 Completed Unive rsity of VACCINE 18 YRS+, 00:00:00 [place] Me dical BIVALENT 0.5ML, IM, Branc h (MODERNA BOOSTER) Influenza Virus 2022-04-29 Completed Universit y of Vaccine Quad IM, 00:00:00 [place] Me dical Preserv and ABX Branch Free 6 MO-64 YRS SARS-COV-2 COVID-19 2022-04-29 Completed Unive rsity of VACCINE 12 YRS+, 00:00:00 [place] Me dical BIVALENT 0.5ML, IM, Branc h (MODERNA BOOSTER) Influenza Virus 2022-04-29 Completed Universit y of Vaccine Quad IM, 00:00:00 [place] Me dical Preserv and ABX Branch Free 6 MO-64 YRS SARS-COV-2 COVID-19 2022-04-29 Completed Unive rsity of VACCINE 12 YRS+, 00:00:00 [place] Me dical BIVALENT 0.5ML, IM, Branc h (MODERNA BOOSTER) Influenza Virus 2022-04-29 Completed Universit y of Vaccine Quad IM, 00:00:00 [place] Me dical Preserv and ABX Branch Free 6 MO-64 YRS SARS-COV-2 COVID-19 2022-04-29 Completed Unive rsity of VACCINE 12 YRS+, 00:00:00 [place] Me dical BIVALENT 0.5ML, IM, Branc h (MODERNA BOOSTER) Influenza Virus 2022-04-29 Completed Universit y of Vaccine Quad IM, 00:00:00 [place] Me dical Preserv and ABX Branch Free 6 MO-64 YRS SARS-COV-2 COVID-19 2022-04-29 Completed Unive rsity of VACCINE 12 YRS+, 00:00:00 [place] Me dical BIVALENT 0.5ML, IM, Branc h (MODERNA BOOSTER) Influenza Virus 2022-04-29 Completed Universit y of Vaccine Quad IM, 00:00:00 [place] Me dical Preserv and ABX Branch Free 6 MO-64 YRS SARS-COV-2 COVID-19 2022-04-29 Completed Unive rsity of VACCINE 12 YRS+, 00:00:00 [place] Me dical BIVALENT 0.5ML, IM, Branc h (MODERNA BOOSTER) Influenza Virus 2022-04-29 Completed Universit y of Vaccine Quad IM, 00:00:00 [place] Me dical Preserv and ABX Branch Free 6 MO-64 YRS SARS-COV-2 COVID-19 2022-04-29 Completed Unive rsity of VACCINE 12 YRS+, 00:00:00 [place] Me dical BIVALENT 0.5ML, IM, Branc h (MODERNA BOOSTER) Influenza Virus 2022-04-29 Completed Universit y of Vaccine Quad IM, 00:00:00 [place] Me dical Preserv and ABX Branch Free 6 MO-64 YRS SARS-COV-2 COVID-19 2022-04-29 Completed Unive rsity of VACCINE 12 YRS+, 00:00:00 [place] Me dical BIVALENT 0.5ML, IM, Branc h (MODERNA BOOSTER) Influenza Virus 2022-04-29 Completed Universit y of Vaccine Quad IM, 00:00:00 [place] Me dical Preserv and ABX Branch Free 6 MO-64 YRS SARS-COV-2 COVID-19 2022-04-29 Completed Unive rsity of VACCINE 12 YRS+, 00:00:00 [place] Me dical BIVALENT 0.5ML, IM, Branc h (MODERNA BOOSTER) Influenza Virus 2022-04-29 Completed Universit y of Vaccine Quad IM, 00:00:00 [place] Me dical Preserv and ABX Branch Free 6 MO-64 YRS SARS-COV-2 COVID-19 2022-04-29 Completed Unive rsity of VACCINE 12 YRS+, 00:00:00 [place] Me dical BIVALENT 0.5ML, IM, Branc h (MODERNA BOOSTER) Influenza Virus 2022-04-29 Completed Universit y of Vaccine Quad IM, 00:00:00 [place] Me dical Preserv and ABX Branch Free 6 MO-64 YRS SARS-COV-2 COVID-19 2022-04-29 Completed Unive rsity of VACCINE 12 YRS+, 00:00:00 [place] Me dical BIVALENT 0.5ML, IM, Branc h (MODERNA BOOSTER) Influenza Virus 2022-04-29 Completed Universit y of Vaccine Quad IM, 00:00:00 [place] Me dical Preserv and ABX Branch Free 6 MO-64 YRS SARS-COV-2 COVID-19 2022-04-29 Completed Unive rsity of VACCINE 12 YRS+, 00:00:00 [place] Me dical BIVALENT 0.5ML, IM, Branc h (MODERNA BOOSTER) Influenza Virus 2022-04-29 Completed Universit y of Vaccine Quad IM, 00:00:00 [place] Me dical Preserv and ABX Branch Free 6 MO-64 YRS SARS-COV-2 COVID-19 2022-04-29 Completed Unive rsity of VACCINE 12 YRS+, 00:00:00 [place] Me dical BIVALENT 0.5ML, IM, Branc h (MODERNA BOOSTER) Influenza Virus 2022-04-29 Completed Universit y of Vaccine Quad IM, 00:00:00 [place] Me dical Preserv and ABX Branch Free 6 MO-64 YRS SARS-COV-2 COVID-19 2022-04-29 Completed Unive rsity of VACCINE 12 YRS+, 00:00:00 [place] Me dical BIVALENT 0.5ML, IM, Branc h (MODERNA BOOSTER) Influenza Virus 2022-04-29 Completed Universit y of Vaccine Quad IM, 00:00:00 [place] Me dical Preserv and ABX Branch Free 6 MO-64 YRS SARS-COV-2 COVID-19 2022-04-29 Completed Unive rsity of VACCINE 12 YRS+, 00:00:00 [place] Me dical BIVALENT 0.5ML, IM, Branc h (MODERNA BOOSTER) Influenza Virus 2022-04-29 Completed Universit y of Vaccine Quad IM, 00:00:00 [place] Me dical Preserv and ABX Branch Free 6 MO-64 YRS SARS-COV-2 COVID-19 2022-04-29 Completed Unive rsity of VACCINE 12 YRS+, 00:00:00 [place] Me dical BIVALENT 0.5ML, IM, Branc h (MODERNA-BLUE TOP) Influenza Virus 2022-04-29 Completed Universit y of Vaccine Quad IM, 00:00:00 [place] Me dical Preserv and ABX Branch Free 6 MO-64 YRS SARS-COV-2 COVID-19 2022-04-29 Completed Unive rsity of VACCINE 12 YRS+, 00:00:00 [place] Me dical BIVALENT 0.5ML, IM, Branc h (MODERNA-BLUE TOP) Influenza Virus 2022-04-29 Completed Universit y of Vaccine Quad IM, 00:00:00 [place] Me dical Preserv and ABX Branch Free 6 MO-64 YRS SARS-COV-2 COVID-19 2022-04-29 Completed Unive rsity of VACCINE 12 YRS+, 00:00:00 [place] Me dical BIVALENT 0.5ML, IM, Branc h (MODERNA-BLUE TOP) Influenza Virus 2022-04-29 Completed Universit y of Vaccine Quad IM, 00:00:00 [place] Me dical Preserv and ABX Branch Free 6 MO-64 YRS SARS-COV-2 COVID-19 2022-04-29 Completed Unive rsity of VACCINE 12 YRS+, 00:00:00 [place] Me dical BIVALENT 0.5ML, IM, Branc h (MODERNA-BLUE TOP) Influenza Virus 2022-04-29 Completed Universit y of Vaccine Quad IM, 00:00:00 [place] Me dical Preserv and ABX Branch Free 6 MO-64 YRS SARS-COV-2 COVID-19 2022-04-29 Completed Unive rsity of VACCINE 12 YRS+, 00:00:00 [place] Me dical BIVALENT 0.5ML, IM, Branc h (MODERNA-BLUE TOP) Influenza Virus 2022-04-29 Completed Universit y of Vaccine Quad IM, 00:00:00 [place] Me dical Preserv and ABX Branch Free 6 MO-64 YRS SARS-COV-2 COVID-19 2022-04-29 Completed Unive rsity of VACCINE 12 YRS+, 00:00:00 [place] Me dical BIVALENT 0.5ML, IM, Branc h (MODERNA-BLUE TOP) Influenza Virus 2022-04-29 Completed Universit y of Vaccine Quad IM, 00:00:00 [place] Me dical Preserv and ABX Branch Free 6 MO-64 YRS SARS-COV-2 COVID-19 2022-04-29 Completed Unive rsity of VACCINE 12 YRS+, 00:00:00 [place] Me dical BIVALENT 0.5ML, IM, Branc h (MODERNA-BLUE TOP) Influenza Virus 2022-04-29 Completed Universit y of Vaccine Quad IM, 00:00:00 [place] Me dical Preserv and ABX Branch Free 6 MO-64 YRS SARS-COV-2 COVID-19 2022-04-29 Completed Unive rsity of VACCINE 12 YRS+, 00:00:00 [place] Me dical BIVALENT 0.5ML, IM, Branc h (MODERNA-BLUE TOP) Influenza Virus 2022-04-29 Completed Universit y of Vaccine Quad IM, 00:00:00 [place] Me dical Preserv and ABX Branch Free 6 MO-64 YRS SARS-COV-2 COVID-19 2022-04-29 Completed Unive rsity of VACCINE 12 YRS+, 00:00:00 [place] Me dical BIVALENT 0.5ML, IM, Branc h (MODERNA-BLUE TOP) Influenza Virus 2022-04-29 Completed Universit y of Vaccine Quad IM, 00:00:00 [place] Me dical Preserv and ABX Branch Free 6 MO-64 YRS SARS-COV-2 COVID-19 2022-04-29 Completed Unive rsity of VACCINE 12 YRS+, 00:00:00 [place] Me dical BIVALENT 0.5ML, IM, Branc h (MODERNA-BLUE TOP) Influenza Virus 2022-04-29 Completed Universit y of Vaccine Quad IM, 00:00:00 [place] Me dical Preserv and ABX Branch Free 6 MO-64 YRS SARS-COV-2 COVID-19 2022-04-29 Completed Unive rsity of VACCINE 12 YRS+, 00:00:00 [place] Me dical BIVALENT 0.5ML, IM, Branc h (MODERNA-BLUE TOP) Influenza Virus 2022-04-29 Completed Universit y of Vaccine Quad IM, 00:00:00 [place] Me dical Preserv and ABX Branch Free 6 MO-64 YRS SARS-COV-2 COVID-19 2022-04-29 Completed Unive rsity of VACCINE 12 YRS+, 00:00:00 [place] Me dical BIVALENT 0.5ML, IM, Branc h (MODERNA-BLUE TOP) Influenza Virus 2022-04-29 Completed Universit y of Vaccine Quad IM, 00:00:00 [place] Me dical Preserv and ABX Branch Free 6 MO-64 YRS SARS-COV-2 COVID-19 2022-04-29 Completed Unive rsity of VACCINE 12 YRS+, 00:00:00 [place] Me dical BIVALENT 0.5ML, IM, Branc h (MODERNA-BLUE TOP) Influenza Virus 2022-04-29 Completed Universit y of Vaccine Quad IM, 00:00:00 [place] Me dical Preserv and ABX Branch Free 6 MO-64 YRS SARS-COV-2 COVID-19 2022-04-29 Completed Unive rsity of VACCINE 12 YRS+, 00:00:00 [place] Me dical BIVALENT 0.5ML, IM, Branc h (MODERNA-BLUE TOP) Influenza Virus 2022-04-29 Completed Universit y of Vaccine Quad IM, 00:00:00 [place] Me dical Preserv and ABX Branch Free 6 MO-64 YRS SARS-COV-2 COVID-19 2022-04-29 Completed Unive rsity of VACCINE 12 YRS+, 00:00:00 [place] Me dical BIVALENT 0.5ML, IM, Branc h (MODERNA-BLUE TOP) Influenza Virus 2022-04-29 Completed Universit y of Vaccine Quad IM, 00:00:00 [place] Me dical Preserv and ABX Branch Free 6 MO-64 YRS SARS-COV-2 COVID-19 2022-04-29 Completed Unive rsity of VACCINE 12 YRS+, 00:00:00 [place] Me dical BIVALENT 0.5ML, IM, Branc h (MODERNA-BLUE TOP) Influenza Virus 2022-04-29 Completed Universit y of Vaccine Quad IM, 00:00:00 [place] Me dical Preserv and ABX Branch Free 6 MO-64 YRS SARS-COV-2 COVID-19 2022-04-29 Completed Unive rsity of VACCINE 12 YRS+, 00:00:00 [place] Me dical BIVALENT 0.5ML, IM, Branc h (MODERNA-BLUE TOP) Influenza Virus 2022-04-29 Completed Universit y of Vaccine Quad IM, 00:00:00 [place] Me dical Preserv and ABX Branch Free 6 MO-64 YRS (FLUCELVAX) SARS-COV-2 COVID-19 2022-04-29 Completed Unive rsity of VACCINE 12 YRS+, 00:00:00 [place] Me dical BIVALENT 0.5ML, IM, Branc h (MODERNA-BLUE TOP) Influenza Virus 2022-04-29 Completed Universit y of Vaccine Quad IM, 00:00:00 [place] Me dical Preserv and ABX Branch Free 6 MO-64 YRS (FLUCELVAX) SARS-COV-2 COVID-19 2022-04-29 Completed Unive rsity of VACCINE 12 YRS+, 00:00:00 [place] Me dical BIVALENT 0.5ML, IM, Branc h (MODERNA-BLUE TOP) Influenza Virus 2022-04-29 Completed Universit y of Vaccine Quad IM, 00:00:00 [place] Me dical Preserv and ABX Branch Free 6 MO-64 YRS (FLUCELVAX) SARS-COV-2 COVID-19 2022-04-29 Completed Unive rsity of VACCINE 12 YRS+, 00:00:00 [place] Me dical BIVALENT 0.5ML, IM, Branc h (MODERNA-BLUE TOP) Influenza Virus 2022-04-29 Completed Universit y of Vaccine Quad IM, 00:00:00 [place] Me dical Preserv and ABX Branch Free 6 MO-64 YRS (FLUCELVAX) SARS-COV-2 COVID-19 2021-06-12 Completed Unive rsity of MODERNA 0.25ML 00:00:00 [place] Medi itz BOOSTER VACCINE Branch SARS-COV-2 COVID-19 2021-06-12 Completed Unive rsity of MODERNA 0.25ML 00:00:00 [place] Medi itz BOOSTER VACCINE Branch SARS-COV-2 COVID-19 2021-06-12 Completed Unive rsity of MODERNA 0.25ML 00:00:00 [place] Medi itz BOOSTER VACCINE Branch SARS-COV-2 COVID-19 2021-06-12 Completed Unive rsity of MODERNA 0.25ML 00:00:00 [place] Medi itz BOOSTER VACCINE Branch SARS-COV-2 COVID-19 2021-06-12 Completed Unive rsity of MODERNA 0.25ML 00:00:00 [place] Medi itz BOOSTER VACCINE Branch SARS-COV-2 COVID-19 2021-06-12 Completed Unive rsity of MODERNA 0.25ML 00:00:00 [place] Medi itz BOOSTER VACCINE Branch SARS-COV-2 COVID-19 2021-06-12 Completed Unive rsity of MODERNA 0.25ML 00:00:00 [place] Medi itz BOOSTER VACCINE Branch SARS-COV-2 COVID-19 2021-06-12 Completed Unive rsity of MODERNA 0.25ML 00:00:00 [place] Medi itz BOOSTER VACCINE Branch SARS-COV-2 COVID-19 2021-06-12 Completed Unive rsity of MODERNA 0.25ML 00:00:00 [place] Medi itz BOOSTER VACCINE Branch SARS-COV-2 COVID-19 2021-06-12 Completed Unive rsity of MODERNA 0.25ML 00:00:00 [place] Medi itz BOOSTER VACCINE Branch SARS-COV-2 COVID-19 2021-06-12 Completed Unive rsity of MODERNA 0.25ML 00:00:00 [place] Medi itz BOOSTER VACCINE Branch SARS-COV-2 COVID-19 2021-06-12 Completed Unive rsity of MODERNA 0.25ML 00:00:00 [place] Medi itz BOOSTER VACCINE Branch SARS-COV-2 COVID-19 2021-06-12 Completed Unive rsity of MODERNA 0.25ML 00:00:00 [place] Medi itz BOOSTER VACCINE Branch SARS-COV-2 COVID-19 2021-06-12 Completed Unive rsity of MODERNA 0.25ML 00:00:00 [place] Medi itz BOOSTER VACCINE Branch SARS-COV-2 COVID-19 2021-06-12 Completed Unive rsity of MODERNA 0.25ML 00:00:00 [place] Medi itz BOOSTER VACCINE Branch SARS-COV-2 COVID-19 2021-06-12 Completed Unive rsity of MODERNA 0.25ML 00:00:00 [place] Medi itz BOOSTER VACCINE Branch SARS-COV-2 COVID-19 2021-06-12 Completed Unive rsity of MODERNA 0.25ML 00:00:00 [place] Medi itz BOOSTER VACCINE Branch SARS-COV-2 COVID-19 2021-06-12 Completed Unive rsity of MODERNA 0.25ML 00:00:00 [place] Medi itz BOOSTER VACCINE Branch SARS-COV-2 COVID-19 2021-06-12 Completed Unive rsity of MODERNA 0.25ML 00:00:00 [place] Medi itz BOOSTER VACCINE Branch SARS-COV-2 COVID-19 2021-06-12 Completed Unive rsity of MODERNA 0.25ML 00:00:00 [place] Medi itz BOOSTER VACCINE Branch SARS-COV-2 COVID-19 2021-06-12 Completed Unive rsity of MODERNA 0.25ML 00:00:00 [place] Medi itz BOOSTER VACCINE Branch SARS-COV-2 COVID-19 2021-06-12 Completed Unive rsity of MODERNA 0.25ML 00:00:00 [place] Medi itz BOOSTER VACCINE Branch SARS-COV-2 COVID-19 2021-06-12 Completed Unive rsity of MODERNA 0.25ML 00:00:00 [place] Medi itz BOOSTER VACCINE Branch SARS-COV-2 COVID-19 2021-06-12 Completed Unive rsity of MODERNA 0.25ML 00:00:00 [place] Medi itz BOOSTER VACCINE Branch SARS-COV-2 COVID-19 2021-06-12 Completed Unive rsity of MODERNA 0.25ML 00:00:00 [place] Medi itz BOOSTER VACCINE Branch SARS-COV-2 COVID-19 2021-06-12 Completed Unive rsity of MODERNA 0.25ML 00:00:00 [place] Medi itz BOOSTER VACCINE Branch SARS-COV-2 COVID-19 2021-06-12 Completed Unive rsity of MODERNA 0.25ML 00:00:00 [place] Medi itz BOOSTER VACCINE Branch SARS-COV-2 COVID-19 2021-06-12 Completed Unive rsity of MODERNA 0.25ML 00:00:00 [place] Medi itz BOOSTER VACCINE Branch SARS-COV-2 COVID-19 2021-06-12 Completed Unive rsity of MODERNA 0.25ML 00:00:00 [place] Medi itz BOOSTER VACCINE Branch SARS-COV-2 COVID-19 2021-06-12 Completed Unive rsity of MODERNA 0.25ML 00:00:00 [place] Medi itz BOOSTER VACCINE Branch SARS-COV-2 COVID-19 2021-06-12 Completed Unive rsity of MODERNA 0.25ML 00:00:00 [place] Medi itz BOOSTER VACCINE Branch SARS-COV-2 COVID-19 2021-06-12 Completed Unive rsity of MODERNA 0.25ML 00:00:00 [place] Medi itz BOOSTER VACCINE Branch SARS-COV-2 COVID-19 2021-06-12 Completed Unive rsity of MODERNA 0.25ML 00:00:00 [place] Medi itz BOOSTER VACCINE Branch SARS-COV-2 COVID-19 2021-06-12 Completed Unive rsity of MODERNA 0.25ML 00:00:00 [place] Medi itz BOOSTER VACCINE Branch SARS-COV-2 COVID-19 2021-06-12 Completed Unive rsity of MODERNA 0.25ML 00:00:00 [place] Medi itz BOOSTER VACCINE Branch SARS-COV-2 COVID-19 2021-06-12 Completed Unive rsity of MODERNA 0.25ML 00:00:00 [place] Medi itz BOOSTER VACCINE Branch SARS-COV-2 COVID-19 2021-06-12 Completed Unive rsity of MODERNA 0.25ML 00:00:00 [place] Medi itz BOOSTER VACCINE Branch SARS-COV-2 COVID-19 2021-06-12 Completed Unive rsity of MODERNA 0.25ML 00:00:00 [place] Medi itz BOOSTER VACCINE Branch SARS-COV-2 COVID-19 2021-06-12 Completed Unive rsity of MODERNA 0.25ML 00:00:00 [place] Medi itz BOOSTER VACCINE Branch SARS-COV-2 COVID-19 2021-06-12 Completed Unive rsity of MODERNA 0.25ML 00:00:00 [place] Medi itz BOOSTER VACCINE Branch SARS-COV-2 COVID-19 2021-06-12 Completed Unive rsity of MODERNA 0.25ML 00:00:00 [place] Medi itz BOOSTER VACCINE Branch SARS-COV-2 COVID-19 2021-06-12 Completed Unive rsity of MODERNA 0.25ML 00:00:00 [place] Medi itz BOOSTER VACCINE Branch SARS-COV-2 COVID-19 2021-06-12 Completed Unive rsity of MODERNA 0.25ML 00:00:00 [facility] VACC[facility] SARS-COV-2 COVID-19 2021-06-12 Completed [facility] MODERNA 0.25ML 00:00:00 [facility] VACC[facility] SARS-COV-2 COVID-19 2021-06-12 Completed [facility] MODERNA 0.25ML 00:00:00 [facility] VACCINE [facility] SARS-COV-2 COVID-19 2021-06-12 Completed [facility] MODERNA 0.25ML 00:00:00 [facility] VACC[facility] SARS-COV-2 COVID-19 2021-06-12 Completed [facility] MODERNA 0.25ML 00:00:00 [facility] VACC[facility] SARS-COV-2 COVID-19 2021-06-12 Completed [facility] MODERNA 0.25ML 00:00:00 [facility] VACC[facility] SARS-COV-2 COVID-19 2021-06-12 Completed [facility] MODERNA 0.25ML 00:00:00 [facility] VACC[facility] SARS-COV-2 COVID-19 2021-06-12 Completed [facility] MODERNA 0.25ML 00:00:00 [facility]ACC[facility] Influenza Virus 2021-05-08 Completed [facility] Vaccine Recomb Quad 00:00:00 [facility], Preserv and ABX Branc h Free 18-64 YRS Influenza Virus 2021-05-08 Completed [facility] Vaccine Recomb Quad 00:00:00 [facility], Preserv and ABX Branc h Free 18-64 YRS Influenza Virus 2021-05-08 Completed [facility] Vaccine Recomb Quad 00:00:00 [facility], Preserv and ABX Branc h Free 18-64 YRS Influenza Virus 2021-05-08 Completed [facility] Vaccine Recomb Quad 00:00:00 [facility], Preserv and ABX Branc h Free 18-64 YRS Influenza Virus 2021-05-08 Completed [facility] Vaccine Recomb Quad 00:00:00 [facility], Preserv and ABX Branc h Free 18-64 YRS Influenza Virus 2021-05-08 Completed [facility] Vaccine Recomb Quad 00:00:00 [facility], Preserv and ABX Branc h Free 18-64 YRS Influenza Virus 2021-05-08 Completed [facility] Vaccine Recomb Quad 00:00:00 [facility], Preserv and ABX Branc h Free 18-64 YRS Influenza Virus 2021-05-08 Completed [facility] 00:00:00 [facility] Preserv and ABX Branc h Free 18-64 YRS Influenza Virus 2021-05-08 Completed [facility] 00:00:00 [facility] Preserv and ABX Branc h Free 18-64 YRS Influenza Virus 2021-05-08 Completed [facility] 00:00:00 [facility] Preserv and ABX Branc h Free 18-64 YRS Influenza Virus 2021-05-08 Completed [facility] 00:00:00 [facility] Preserv and ABX Branc h Free 18-64 YRS Influenza Virus 2021-05-08 Completed [facility] 00:00:00 [facility] Preserv and ABX Branc h Free 18-64 YRS Influenza Virus 2021-05-08 Completed [facility] 00:00:00 [facility], Preserv and ABX Branc h Free 18-64 YRS Influenza Virus 2021-05-08 Completed [facility] 00:00:00 [facility], Preserv and ABX Branc h Free 18-64 YRS Influenza Virus 2021-05-08 Completed [facility] 00:00:00 [facility] Preserv and ABX Branc h Free 18-64 YRS Influenza Virus 2021-05-08 Completed [facility] 00:00:00 [facility], Preserv and ABX Branc h Free 18-64 YRS Influenza Virus 2021-05-08 Completed [facility] 00:00:00 [facility] Preserv and ABX Branc h Free 18-64 YRS Influenza Virus 2021-05-08 Completed [facility] 00:00:00 [facility] Preserv and ABX Branc h Free 18-64 YRS Influenza Virus 2021-05-08 Completed [facility] 00:00:00 [facility], Preserv and ABX Branc h Free 18-64 YRS Influenza Virus 2021-05-08 Completed [facility] 00:00:00 [facility], Preserv and ABX Branc h Free 18-64 YRS Influenza Virus 2021-05-08 Completed [facility] 00:00:00 [facility], Preserv and ABX Branc h Free 18-64 YRS Influenza Virus 2021-05-08 Completed [facility] 00:00:00 [facility], Preserv and ABX Branc h Free 18-64 YRS Influenza Virus 2021-05-08 Completed [facility] 00:00:00 [facility] Preserv and ABX Branc h Free 18-64 YRS Influenza Virus 2021-05-08 Completed [facility] 00:00:00 [facility] Preserv and ABX Branc h Free 18-64 YRS Influenza Virus 2021-05-08 Completed [facility] 00:00:00 [facility] Preserv and ABX Branc h Free 18-64 YRS Influenza Virus 2021-05-08 Completed [facility] 00:00:00 [facility] Preserv and ABX Branc h Free 18-64 YRS Influenza Virus 2021-05-08 Completed [facility] 00:00:00 [facility] Preserv and ABX Branc h Free 18-64 YRS Influenza Virus 2021-05-08 Completed [facility] 00:00:00 [facility] Preserv and ABX Branc h Free 18-64 YRS Influenza Virus 2021-05-08 Completed [facility] 00:00:00 [facility] Preserv and ABX Branc h Free 18-64 YRS Influenza Virus 2021-05-08 Completed [facility] 00:00:00 [facility], Preserv and ABX Branc h Free 18-64 YRS Influenza Virus 2021-05-08 Completed [facility] 00:00:00 [facility], Preserv and ABX Branc h Free 18-64 YRS Influenza Virus 2021-05-08 Completed [facility] 00:00:00 [facility], Preserv and ABX Branc h Free 18-64 YRS Influenza Virus 2021-05-08 Completed [facility] 00:00:00 [facility], Preserv and ABX Branc h Free 18-64 YRS Influenza Virus 2021-05-08 Completed [facility] 00:00:00 [facility], Preserv and ABX Branc h Free 18-64 YRS Influenza Virus 2021-05-08 Completed [facility] 00:00:00 [facility], Preserv and ABX Branc h Free 18-64 YRS Influenza Virus 2021-05-08 Completed [facility] 00:00:00 [facility], Preserv and ABX Branc h Free 18-64 YRS Influenza Virus 2021-05-08 Completed [facility] 00:00:00 [facility], Preserv and ABX Branc h Free 18-64 YRS Influenza Virus 2021-05-08 Completed [facility] 00:00:00 [facility], Preserv and ABX Branc h Free 18-64 YRS Influenza Virus 2021-05-08 Completed [facility] 00:00:00 [facility], Preserv and ABX Branc h Free 18-64 YRS Influenza Virus 2021-05-08 Completed [facility] 00:00:00 [facility], Preserv and ABX Branc h Free 18-64 YRS Influenza Virus 2021-05-08 Completed [facility] 00:00:00 [facility], Preserv and ABX Branc h Free 18-64 YRS Influenza Virus 2021-05-08 Completed [facility] 00:00:00 [facility], Preserv and ABX Branc h Free 18-64 YRS Influenza Virus 2021-05-08 Completed [facility] 00:00:00 [facility], Preserv and ABX Branc h Free 18-64 YRS Influenza Virus 2021-05-08 Completed [facility] 00:00:00 [facility], Preserv and ABX Branc h Free 18-64 YRS Influenza Virus 2021-05-08 Completed [facility] 00:00:00 [facility], Preserv and ABX Branc h Free 18-64 YRS Influenza Virus 2021-05-08 Completed [facility] 00:00:00 [facility], Preserv and ABX Branc h Free 18-64 YRS Influenza Virus 2021-05-08 Completed [facility] 00:00:00 [facility], Preserv and ABX Branc h Free 18-64 YRS Influenza Virus 2021-05-08 Completed [facility] 00:00:00 [facility], Preserv and ABX Branc h Free 18-64 YRS Influenza Virus 2021-05-08 Completed [facility] 00:00:00 [facility], Preserv and ABX Branc h Free 18-64 YRS Influenza Virus 2021-05-08 Completed [facility] 00:00:00 [facility], Preserv and ABX Branc h Free 18-64 YRS SARS-COV-2 COVID-19 2020-09-03 Completed [facility] VACCINE 00:00:00 [facility] SARS-COV-2 COVID-19 2020-09-03 Completed [facility] VACCINE 00:00:00 [facility] SARS-COV-2 COVID-19 2020-09-03 Completed [facility] VACCINE 00:00:00 [facility] SARS-COV-2 COVID-19 2020-09-03 Completed [facility]NA VACCINE 00:00:00 [facility] SARS-COV-2 COVID-19 2020-09-03 Completed [facility] MODERNA 12+ YRS 00:00:00 [facility] SARS-COV-2 COVID-19 2020-09-03 Completed [facility] MODERNA 12+ YRS 00:00:00 [facility] SARS-COV-2 COVID-19 2020-09-03 Completed [facility] MODERNA 12+ YRS 00:00:00 [facility] SARS-COV-2 COVID-19 2020-09-03 Completed [facility] MODERNA 12+ YRS 00:00:00 [facility] SARS-COV-2 COVID-19 2020-09-03 Completed [facility] MODERNA 12+ YRS 00:00:00 [facility] SARS-COV-2 COVID-19 2020-09-03 Completed [facility] MODERNA 12+ YRS 00:00:00 [facility] SARS-COV-2 COVID-19 2020-09-03 Completed [facility] MODERNA 12+ YRS 00:00:00 [facility] SARS-COV-2 COVID-19 2020-09-03 Completed [facility] MODERNA 12+ YRS 00:00:00 [facility] SARS-COV-2 COVID-19 2020-09-03 Completed [facility] MODERNA 12+ YRS 00:00:00 [facility] SARS-COV-2 COVID-19 2020-09-03 Completed [facility] MODERNA 12+ YRS 00:00:00 [facility] SARS-COV-2 COVID-19 2020-09-03 Completed [facility] MODERNA 12+ YRS 00:00:00 [facility] SARS-COV-2 COVID-19 2020-09-03 Completed [facility] MODERNA 12+ YRS 00:00:00 [facility] SARS-COV-2 COVID-19 2020-09-03 Completed [facility] MODERNA 12+ YRS 00:00:00 [facility] SARS-COV-2 COVID-19 2020-09-03 Completed [facility] MODERNA 12+ YRS 00:00:00 [facility] SARS-COV-2 COVID-19 2020-09-03 Completed [facility] MODERNA 12+ YRS 00:00:00 [facility] SARS-COV-2 COVID-19 2020-09-03 Completed [facility] MODERNA 12+ YRS 00:00:00 [facility] SARS-COV-2 COVID-19 2020-09-03 Completed [facility] MODERNA 12+ YRS 00:00:00 [facility] SARS-COV-2 COVID-19 2020-09-03 Completed [facility] MODERNA 12+ YRS 00:00:00 [facility] SARS-COV-2 COVID-19 2020-09-03 Completed [facility] MODERNA 12+ YRS 00:00:00 [facility] SARS-COV-2 COVID-19 2020-09-03 Completed [facility] MODERNA 12+ YRS 00:00:00 [facility] SARS-COV-2 COVID-19 2020-09-03 Completed [facility] MODERNA 12+ YRS 00:00:00 [facility] SARS-COV-2 COVID-19 2020-09-03 Completed [facility] MODERNA 12+ YRS 00:00:00 [facility] SARS-COV-2 COVID-19 2020-09-03 Completed [facility] MODERNA 12+ YRS 00:00:00 [facility] SARS-COV-2 COVID-19 2020-09-03 Completed [facility] MODERNA 12+ YRS 00:00:00 [facility] SARS-COV-2 COVID-19 2020-09-03 Completed [facility] MODERNA 12+ YRS 00:00:00 [facility] SARS-COV-2 COVID-19 2020-09-03 Completed [facility] MODERNA 12+ YRS 00:00:00 [facility] SARS-COV-2 COVID-19 2020-09-03 Completed [facility] MODERNA 12+ YRS 00:00:00 [facility] SARS-COV-2 COVID-19 2020-09-03 Completed [facility] MODERNA 12+ YRS 00:00:00 [facility] SARS-COV-2 COVID-19 2020-09-03 Completed [facility] MODERNA 12+ YRS 00:00:00 [facility] SARS-COV-2 COVID-19 2020-09-03 Completed [facility] MODERNA 12+ YRS 00:00:00 [facility] SARS-COV-2 COVID-19 2020-09-03 Completed [facility] MODERNA 12+ YRS 00:00:00 [facility] SARS-COV-2 COVID-19 2020-09-03 Completed [facility] MODERNA 12+ YRS 00:00:00 [facility] SARS-COV-2 COVID-19 2020-09-03 Completed [facility] MODERNA 12+ YRS 00:00:00 [facility] SARS-COV-2 COVID-19 2020-09-03 Completed [facility] MODERNA 12+ YRS 00:00:00 [facility] SARS-COV-2 COVID-19 2020-09-03 Completed [facility] MODERNA 12+ YRS 00:00:00 [facility] SARS-COV-2 COVID-19 2020-09-03 Completed [facility] MODERNA 12+ YRS 00:00:00 [facility] SARS-COV-2 COVID-19 2020-09-03 Completed [facility] MODERNA 12+ YRS 00:00:00 [facility] SARS-COV-2 COVID-19 2020-09-03 Completed [facility] MODERNA 12+ YRS 00:00:00 [facility] SARS-COV-2 COVID-19 2020-09-03 Completed [facility] MODERNA 12+ YRS 00:00:00 [facility] SARS-COV-2 COVID-19 2020-09-03 Completed [facility] MODERNA 12+ YRS 00:00:00 [facility] SARS-COV-2 COVID-19 2020-09-03 Completed [facility] MODERNA 12+ YRS 00:00:00 [facility] SARS-COV-2 COVID-19 2020-09-03 Completed [facility] MODERNA 12+ YRS 00:00:00 [facility] SARS-COV-2 COVID-19 2020-09-03 Completed [facility] MODERNA 12+ YRS 00:00:00 [facility] SARS-COV-2 COVID-19 2020-09-03 Completed [facility] MODERNA 12+ YRS 00:00:00 [facility] SARS-COV-2 COVID-19 2020-09-03 Completed [facility] MODERNA 12+ YRS 00:00:00 [facility] SARS-COV-2 COVID-19 2020-09-03 Completed [facility] MODERNA 12+ YRS 00:00:00 [facility] SARS-COV-2 COVID-19 2020-08-06 Completed [facility] VACCINE 00:00:00 [facility] SARS-COV-2 COVID-19 2020-08-06 Completed [facility] VACCINE 00:00:00 [facility] SARS-COV-2 COVID-19 2020-08-06 Completed [facility] VACCINE 00:00:00 [facility] SARS-COV-2 COVID-19 2020-08-06 Completed [facility] VACCINE 00:00:00 [facility] SARS-COV-2 COVID-19 2020-08-06 Completed [facility] MODERNA 12+ YRS 00:00:00 [facility] SARS-COV-2 COVID-19 2020-08-06 Completed [facility] MODERNA 12+ YRS 00:00:00 [facility] SARS-COV-2 COVID-19 2020-08-06 Completed [facility] MODERNA 12+ YRS 00:00:00 [facility] SARS-COV-2 COVID-19 2020-08-06 Completed [facility] MODERNA 12+ YRS 00:00:00 [facility] SARS-COV-2 COVID-19 2020-08-06 Completed [facility] MODERNA 12+ YRS 00:00:00 [facility] SARS-COV-2 COVID-19 2020-08-06 Completed [facility] MODERNA 12+ YRS 00:00:00 [facility] SARS-COV-2 COVID-19 2020-08-06 Completed [facility] MODERNA 12+ YRS 00:00:00 [facility] SARS-COV-2 COVID-19 2020-08-06 Completed [facility] MODERNA 12+ YRS 00:00:00 [facility] SARS-COV-2 COVID-19 2020-08-06 Completed [facility] MODERNA 12+ YRS 00:00:00 [facility] SARS-COV-2 COVID-19 2020-08-06 Completed [facility] MODERNA 12+ YRS 00:00:00 [facility] SARS-COV-2 COVID-19 2020-08-06 Completed [facility] MODERNA 12+ YRS 00:00:00 [facility] SARS-COV-2 COVID-19 2020-08-06 Completed [facility] MODERNA 12+ YRS 00:00:00 [facility] SARS-COV-2 COVID-19 2020-08-06 Completed [facility] MODERNA 12+ YRS 00:00:00 [facility] SARS-COV-2 COVID-19 2020-08-06 Completed [facility] MODERNA 12+ YRS 00:00:00 [facility] SARS-COV-2 COVID-19 2020-08-06 Completed [facility] MODERNA 12+ YRS 00:00:00 [facility] SARS-COV-2 COVID-19 2020-08-06 Completed [facility] MODERNA 12+ YRS 00:00:00 [facility] SARS-COV-2 COVID-19 2020-08-06 Completed [facility] MODERNA 12+ YRS 00:00:00 [facility] SARS-COV-2 COVID-19 2020-08-06 Completed [facility] MODERNA 12+ YRS 00:00:00 [facility] SARS-COV-2 COVID-19 2020-08-06 Completed [facility] MODERNA 12+ YRS 00:00:00 [facility] SARS-COV-2 COVID-19 2020-08-06 Completed [facility] MODERNA 12+ YRS 00:00:00 [facility] SARS-COV-2 COVID-19 2020-08-06 Completed [facility] MODERNA 12+ YRS 00:00:00 [facility] SARS-COV-2 COVID-19 2020-08-06 Completed [facility] MODERNA 12+ YRS 00:00:00 [facility] SARS-COV-2 COVID-19 2020-08-06 Completed [facility] MODERNA 12+ YRS 00:00:00 [facility] SARS-COV-2 COVID-19 2020-08-06 Completed [facility] MODERNA 12+ YRS 00:00:00 [facility] SARS-COV-2 COVID-19 2020-08-06 Completed [facility] MODERNA 12+ YRS 00:00:00 [facility] SARS-COV-2 COVID-19 2020-08-06 Completed [facility] MODERNA 12+ YRS 00:00:00 [facility] SARS-COV-2 COVID-19 2020-08-06 Completed [facility] MODERNA 12+ YRS 00:00:00 [facility] SARS-COV-2 COVID-19 2020-08-06 Completed [facility] MODERNA 12+ YRS 00:00:00 [facility] SARS-COV-2 COVID-19 2020-08-06 Completed [facility] MODERNA 12+ YRS 00:00:00 [facility] SARS-COV-2 COVID-19 2020-08-06 Completed [facility] MODERNA 12+ YRS 00:00:00 [facility] SARS-COV-2 COVID-19 2020-08-06 Completed [facility] MODERNA 12+ YRS 00:00:00 [facility] SARS-COV-2 COVID-19 2020-08-06 Completed [facility] MODERNA 12+ YRS 00:00:00 [facility] SARS-COV-2 COVID-19 2020-08-06 Completed [facility] MODERNA 12+ YRS 00:00:00 [facility] SARS-COV-2 COVID-19 2020-08-06 Completed [facility] MODERNA 12+ YRS 00:00:00 [facility] SARS-COV-2 COVID-19 2020-08-06 Completed [facility] MODERNA 12+ YRS 00:00:00 [facility] SARS-COV-2 COVID-19 2020-08-06 Completed [facility] MODERNA 12+ YRS 00:00:00 [facility] SARS-COV-2 COVID-19 2020-08-06 Completed [facility] MODERNA 12+ YRS 00:00:00 [facility] SARS-COV-2 COVID-19 2020-08-06 Completed [facility] MODERNA 12+ YRS 00:00:00 [facility] SARS-COV-2 COVID-19 2020-08-06 Completed [facility] MODERNA 12+ YRS 00:00:00 [facility] SARS-COV-2 COVID-19 2020-08-06 Completed [facility] MODERNA 12+ YRS 00:00:00 [facility] SARS-COV-2 COVID-19 2020-08-06 Completed [facility] MODERNA 12+ YRS 00:00:00 [facility] SARS-COV-2 COVID-19 2020-08-06 Completed [facility] MODERNA 12+ YRS 00:00:00 [facility] SARS-COV-2 COVID-19 2020-08-06 Completed [facility] MODERNA 12+ YRS 00:00:00 [facility] SARS-COV-2 COVID-19 2020-08-06 Completed [facility] MODERNA 12+ YRS 00:00:00 [facility] SARS-COV-2 COVID-19 2020-08-06 Completed [facility] MODERNA 12+ YRS 00:00:00 [facility] SARS-COV-2 COVID-19 2020-08-06 Completed [facility] MODERNA 12+ YRS 00:00:00 [facility] VACCINE Branch Influenza Virus 2020-04-09 Completed [facility] 00:00:00 [facility], Preserv and ABX Branc h Free 18-64 YRS Influenza Virus 2020-04-09 Completed [facility] 00:00:00 [facility] Preserv and ABX Branc h Free 18-64 YRS Influenza Virus 2020-04-09 Completed [facility] 00:00:00 [facility], Preserv and ABX Branc h Free 18-64 YRS Influenza Virus 2020-04-09 Completed [facility] 00:00:00 [facility], Preserv and ABX Branc h Free 18-64 YRS Influenza Virus 2020-04-09 Completed [facility] 00:00:00 [facility], Preserv and ABX Branc h Free 18-64 YRS Influenza Virus 2020-04-09 Completed [facility] 00:00:00 [facility], Preserv and ABX Branc h Free 18-64 YRS Influenza Virus 2020-04-09 Completed [facility] 00:00:00 [facility], Preserv and ABX Branc h Free 18-64 YRS Influenza Virus 2020-04-09 Completed [facility] 00:00:00 [facility] Preserv and ABX Branc h Free 18-64 YRS Influenza Virus 2020-04-09 Completed [facility] 00:00:00 [facility], Preserv and ABX Branc h Free 18-64 YRS Influenza Virus 2020-04-09 Completed [facility] 00:00:00 [facility] Preserv and ABX Branc h Free 18-64 YRS Influenza Virus 2020-04-09 Completed [facility] 00:00:00 [facility] Preserv and ABX Branc h Free 18-64 YRS Influenza Virus 2020-04-09 Completed [facility] 00:00:00 [facility] Preserv and ABX Branc h Free 18-64 YRS Influenza Virus 2020-04-09 Completed [facility] 00:00:00 [facility] Preserv and ABX Branc h Free 18-64 YRS Influenza Virus 2020-04-09 Completed [facility] 00:00:00 [facility] Preserv and ABX Branc h Free 18-64 YRS Influenza Virus 2020-04-09 Completed [facility] 00:00:00 [facility] Preserv and ABX Branc h Free 18-64 YRS Influenza Virus 2020-04-09 Completed [facility] 00:00:00 [facility] Preserv and ABX Branc h Free 18-64 YRS Influenza Virus 2020-04-09 Completed [facility] 00:00:00 [facility] Preserv and ABX Branc h Free 18-64 YRS Influenza Virus 2020-04-09 Completed [facility] 00:00:00 [facility] Preserv and ABX Branc h Free 18-64 YRS Influenza Virus 2020-04-09 Completed [facility] 00:00:00 [facility] Preserv and ABX Branc h Free 18-64 YRS Influenza Virus 2020-04-09 Completed [facility] 00:00:00 [facility] Preserv and ABX Branc h Free 18-64 YRS Influenza Virus 2020-04-09 Completed [facility] 00:00:00 [facility], Preserv and ABX Branc h Free 18-64 YRS Influenza Virus 2020-04-09 Completed [facility] 00:00:00 [facility] Preserv and ABX Branc h Free 18-64 YRS Influenza Virus 2020-04-09 Completed [facility] 00:00:00 [facility] Preserv and ABX Branc h Free 18-64 YRS Influenza Virus 2020-04-09 Completed [facility] 00:00:00 [facility] Preserv and ABX Branc h Free 18-64 YRS Influenza Virus 2020-04-09 Completed [facility] 00:00:00 [facility] Preserv and ABX Branc h Free 18-64 YRS Influenza Virus 2020-04-09 Completed [facility] 00:00:00 [facility] Preserv and ABX Branc h Free 18-64 YRS Influenza Virus 2020-04-09 Completed [facility] 00:00:00 [facility] Preserv and ABX Branc h Free 18-64 YRS Influenza Virus 2020-04-09 Completed [facility] 00:00:00 [facility] Preserv and ABX Branc h Free 18-64 YRS Influenza Virus 2020-04-09 Completed [facility] 00:00:00 [facility] Preserv and ABX Branc h Free 18-64 YRS Influenza Virus 2020-04-09 Completed [facility] 00:00:00 [facility] Preserv and ABX Branc h Free 18-64 YRS Influenza Virus 2020-04-09 Completed [facility] 00:00:00 [facility] Preserv and ABX Branc h Free 18-64 YRS Influenza Virus 2020-04-09 Completed [facility] 00:00:00 [facility] Preserv and ABX Branc h Free 18-64 YRS Influenza Virus 2020-04-09 Completed [facility] 00:00:00 [facility] Preserv and ABX Branc h Free 18-64 YRS Influenza Virus 2020-04-09 Completed [facility] 00:00:00 [facility] Preserv and ABX Branc h Free 18-64 YRS Influenza Virus 2020-04-09 Completed [facility] 00:00:00 [facility] Preserv and ABX Branc h Free 18-64 YRS Influenza Virus 2020-04-09 Completed [facility] 00:00:00 [facility] Preserv and ABX Branc h Free 18-64 YRS Influenza Virus 2020-04-09 Completed [facility] 00:00:00 [facility] Preserv and ABX Branc h Free 18-64 YRS Influenza Virus 2020-04-09 Completed [facility] 00:00:00 [facility] Preserv and ABX Branc h Free 18-64 YRS Influenza Virus 2020-04-09 Completed [facility] 00:00:00 [facility] Preserv and ABX Branc h Free 18-64 YRS Influenza Virus 2020-04-09 Completed [facility] 00:00:00 [facility] Preserv and ABX Branc h Free 18-64 YRS Influenza Virus 2020-04-09 Completed [facility] 00:00:00 [facility] Preserv and ABX Branc h Free 18-64 YRS Influenza Virus 2020-04-09 Completed [facility] 00:00:00 [facility] Preserv and ABX Branc h Free 18-64 YRS Influenza Virus 2020-04-09 Completed [facility] 00:00:00 [facility] Preserv and ABX Branc h Free 18-64 YRS Influenza Virus 2020-04-09 Completed [facility] 00:00:00 [facility] Preserv and ABX Branc h Free 18-64 YRS Influenza Virus 2020-04-09 Completed [facility] 00:00:00 [facility] Preserv and ABX Branc h Free 18-64 YRS Influenza Virus 2020-04-09 Completed [facility] 00:00:00 [facility] Preserv and ABX Branc h Free 18-64 YRS Influenza Virus 2020-04-09 Completed [facility] 00:00:00 [facility] Preserv and ABX Branc h Free 18-64 YRS Influenza Virus 2020-04-09 Completed [facility] 00:00:00 [facility] Preserv and ABX Branc h Free 18-64 YRS Influenza Virus 2020-04-09 Completed [facility] 00:00:00 [facility] Preserv and ABX Branc h Free 18-64 YRS Influenza Virus 2020-04-09 Completed [facility] 00:00:00 [facility], Preserv and ABX Branc h Free 18-64 YRS Influenza Virus 2019-06-06 Completed [facility] Vaccine Recomb Quad 00:00:00 [facility], Preserv and ABX Branc h Free 18-64 YRS Influenza Virus 2019-06-06 Completed [facility] Vaccine Recomb Quad 00:00:00 [facility], Preserv and ABX Branc h Free 18-64 YRS Influenza Virus 2019-06-06 Completed [facility] Vaccine Recomb Quad 00:00:00 [facility], Preserv and ABX Branc h Free 18-64 YRS Influenza Virus 2019-06-06 Completed [facility] Vaccine Recomb Quad 00:00:00 [facility], Preserv and ABX Branc h Free 18-64 YRS Influenza Virus 2019-06-06 Completed [facility] Vaccine Recomb Quad 00:00:00 [facility], Preserv and ABX Branc h Free 18-64 YRS Influenza Virus 2019-06-06 Completed [facility] Vaccine Recomb Quad 00:00:00 [facility], Preserv and ABX Branc h Free 18-64 YRS Influenza Virus 2019-06-06 Completed [facility] Vaccine Recomb Quad 00:00:00 [facility], Preserv and ABX Branc h Free 18-64 YRS Influenza Virus 2019-06-06 Completed [facility] Vaccine Recomb Quad 00:00:00 [facility], Preserv and ABX Branc h Free 18-64 YRS Influenza Virus 2019-06-06 Completed [facility] Vaccine Recomb Quad 00:00:00 [facility], Preserv and ABX Branc h Free 18-64 YRS Influenza Virus 2019-06-06 Completed [facility] Vaccine Recomb Quad 00:00:00 [facility], Preserv and ABX Branc h Free 18-64 YRS Influenza Virus 2019-06-06 Completed [facility] Vaccine Recomb Quad 00:00:00 [facility], Preserv and ABX Branc h Free 18-64 YRS Influenza Virus 2019-06-06 Completed [facility] Vaccine Recomb Quad 00:00:00 [facility], Preserv and ABX Branc h Free 18-64 YRS Influenza Virus 2019-06-06 Completed [facility] Vaccine Recomb Quad 00:00:00 [facility], Preserv and ABX Branc h Free 18-64 YRS Influenza Virus 2019-06-06 Completed [facility] Vaccine Recomb Quad 00:00:00 [facility], Preserv and ABX Branc h Free 18-64 YRS Influenza Virus 2019-06-06 Completed [facility] Vaccine Recomb Quad 00:00:00 [facility], Preserv and ABX Branc h Free 18-64 YRS Influenza Virus 2019-06-06 Completed [facility] Vaccine Recomb Quad 00:00:00 [facility], Preserv and ABX Branc h Free 18-64 YRS Influenza Virus 2019-06-06 Completed [facility] Vaccine Recomb Quad 00:00:00 [facility], Preserv and ABX Branc h Free 18-64 YRS Influenza Virus 2019-06-06 Completed [facility] Vaccine Recomb Quad 00:00:00 [facility], Preserv and ABX Branc h Free 18-64 YRS Influenza Virus 2019-06-06 Completed [facility] Vaccine Recomb Quad 00:00:00 [facility], Preserv and ABX Branc h Free 18-64 YRS Influenza Virus 2019-06-06 Completed [facility] Vaccine Recomb Quad 00:00:00 [facility], Preserv and ABX Branc h Free 18-64 YRS Influenza Virus 2019-06-06 Completed [facility] Vaccine Recomb Quad 00:00:00 [facility], Preserv and ABX Branc h Free 18-64 YRS Influenza Virus 2019-06-06 Completed [facility] Vaccine Recomb Quad 00:00:00 [facility], Preserv and ABX Branc h Free 18-64 YRS Influenza Virus 2019-06-06 Completed [facility] Vaccine Recomb Quad 00:00:00 [facility], Preserv and ABX Branc h Free 18-64 YRS Influenza Virus 2019-06-06 Completed [facility] Vaccine Recomb Quad 00:00:00 [facility], Preserv and ABX Branc h Free 18-64 YRS Influenza Virus 2019-06-06 Completed [facility] Vaccine Recomb Quad 00:00:00 [facility], Preserv and ABX Branc h Free 18-64 YRS Influenza Virus 2019-06-06 Completed [facility] Vaccine Recomb Quad 00:00:00 [facility], Preserv and ABX Branc h Free 18-64 YRS Influenza Virus 2019-06-06 Completed [facility] Vaccine Recomb Quad 00:00:00 [facility], Preserv and ABX Branc h Free 18-64 YRS Influenza Virus 2019-06-06 Completed [facility] Vaccine Recomb Quad 00:00:00 [facility], Preserv and ABX Branc h Free 18-64 YRS Influenza Virus 2019-06-06 Completed [facility] Vaccine Recomb Quad 00:00:00 [facility], Preserv and ABX Branc h Free 18-64 YRS Influenza Virus 2019-06-06 Completed [facility] Vaccine Recomb Quad 00:00:00 [facility], Preserv and ABX Branc h Free 18-64 YRS Influenza Virus 2019-06-06 Completed [facility] Vaccine Recomb Quad 00:00:00 [facility], Preserv and ABX Branc h Free 18-64 YRS Influenza Virus 2019-06-06 Completed [facility] Vaccine Recomb Quad 00:00:00 [facility], Preserv and ABX Branc h Free 18-64 YRS Influenza Virus 2019-06-06 Completed [facility] Vaccine Recomb Quad 00:00:00 [facility], Preserv and ABX Branc h Free 18-64 YRS Influenza Virus 2019-06-06 Completed [facility] Vaccine Recomb Quad 00:00:00 [facility], Preserv and ABX Branc h Free 18-64 YRS Influenza Virus 2019-06-06 Completed [facility] Vaccine Recomb Quad 00:00:00 [facility], Preserv and ABX Branc h Free 18-64 YRS Influenza Virus 2019-06-06 Completed [facility] Vaccine Recomb Quad 00:00:00 [facility], Preserv and ABX Branc h Free 18-64 YRS Influenza Virus 2019-06-06 Completed [facility] Vaccine Recomb Quad 00:00:00 [facility], Preserv and ABX Branc h Free 18-64 YRS Influenza Virus 2019-06-06 Completed [facility] Vaccine Recomb Quad 00:00:00 [facility], Preserv and ABX Branc h Free 18-64 YRS Influenza Virus 2019-06-06 Completed [facility] Vaccine Recomb Quad 00:00:00 [facility], Preserv and ABX Branc h Free 18-64 YRS Influenza Virus 2019-06-06 Completed [facility] Vaccine Recomb Quad 00:00:00 [facility], Preserv and ABX Branc h Free 18-64 YRS Influenza Virus 2019-06-06 Completed [facility] Vaccine Recomb Quad 00:00:00 [facility], Preserv and ABX Branc h Free 18-64 YRS Influenza Virus 2019-06-06 Completed [facility] Vaccine Recomb Quad 00:00:00 [facility], Preserv and ABX Branc h Free 18-64 YRS Influenza Virus 2019-06-06 Completed [facility] Vaccine Recomb Quad 00:00:00 [facility], Preserv and ABX Branc h Free 18-64 YRS Influenza Virus 2019-06-06 Completed [facility] Vaccine Recomb Quad 00:00:00 [facility], Preserv and ABX Branc h Free 18-64 YRS Influenza Virus 2019-06-06 Completed [facility] Vaccine Recomb Quad 00:00:00 [facility], Preserv and ABX Branc h Free 18-64 YRS Influenza Virus 2019-06-06 Completed [facility] Vaccine Recomb Quad 00:00:00 [facility], Preserv and ABX Branc h Free 18-64 YRS Influenza Virus 2019-06-06 Completed [facility] Vaccine Recomb Quad 00:00:00 [facility], Preserv and ABX Branc h Free 18-64 YRS Influenza Virus 2019-06-06 Completed [facility] Vaccine Recomb Quad 00:00:00 [facility], Preserv and ABX Branc h Free 18-64 YRS Influenza Virus 2019-06-06 Completed [facility] Vaccine Recomb Quad 00:00:00 [facility], Preserv and ABX Branc h Free 18-64 YRS Influenza Virus 2019-06-06 Completed [facility] Vaccine Recomb Quad 00:00:00 [facility], Preserv and ABX Branc h Free 18-64 YRS Influenza Virus 2018-04-20 Completed [facility] Vaccine Quad IM 3+ 00:00:00 [facility] Influenza Virus 2018-04-20 Completed [facility] of Vaccine Quad IM 3+ 00:00:00 [facility] Influenza Virus 2018-04-20 Completed [facility] of Vaccine Quad IM 3+ 00:00:00 [facility] Influenza Virus 2018-04-20 Completed [facility] of Vaccine Quad IM 3+ 00:00:00 [facility] Influenza Virus 2018-04-20 Completed [facility] of Vaccine Quad IM 3+ 00:00:00 [facility] Influenza Virus 2018-04-20 Completed [facility] Vaccine Quad IM 3+ 00:00:00 [facility] Influenza Virus 2018-04-20 Completed [facility] of Vaccine Quad IM 3+ 00:00:00 [facility] Influenza Virus 2018-04-20 Completed [facility] of Vaccine Quad IM 3+ 00:00:00 [facility] Influenza Virus 2018-04-20 Completed [facility] of Vaccine Quad IM 3+ 00:00:00 [facility] Influenza Virus 2018-04-20 Completed [facility] Vaccine Quad IM 3+ 00:00:00 [facility] Influenza Virus 2018-04-20 Completed [facility] of Vaccine Quad IM 3+ 00:00:00 [facility] Influenza Virus 2018-04-20 Completed [facility] of Vaccine Quad IM 3+ 00:00:00 [facility] Influenza Virus 2018-04-20 Completed [facility] Vaccine Quad IM 3+ 00:00:00 [facility] Influenza Virus 2018-04-20 Completed [facility] of Vaccine Quad IM 3+ 00:00:00 [facility] Influenza Virus 2018-04-20 Completed [facility] of Vaccine Quad IM 3+ 00:00:00 [facility] Influenza Virus 2018-04-20 Completed [facility] Vaccine Quad IM 3+ 00:00:00 [facility] Influenza Virus 2018-04-20 Completed [facility] of Vaccine Quad IM 3+ 00:00:00 [facility] Influenza Virus 2018-04-20 Completed [facility] Vaccine Quad IM 3+ 00:00:00 [facility] Influenza Virus 2018-04-20 Completed [facility] Vaccine Quad IM 3+ 00:00:00 [facility] Influenza Virus 2018-04-20 Completed [facility] of Vaccine Quad IM 3+ 00:00:00 [facility] Influenza Virus 2018-04-20 Completed [facility] of Vaccine Quad IM 3+ 00:00:00 [facility] Influenza Virus 2018-04-20 Completed [facility] of Vaccine Quad IM 3+ 00:00:00 [facility] Influenza Virus 2018-04-20 Completed [facility] of Vaccine Quad IM 3+ 00:00:00 [facility] Influenza Virus 2018-04-20 Completed [facility] of Vaccine Quad IM 3+ 00:00:00 [facility] Influenza Virus 2018-04-20 Completed [facility] of Vaccine Quad IM 3+ 00:00:00 [facility] Influenza Virus 2018-04-20 Completed [facility] of Vaccine Quad IM 3+ 00:00:00 [facility] Influenza Virus 2018-04-20 Completed [facility] of Vaccine Quad IM 3+ 00:00:00 [facility] Influenza Virus 2018-04-20 Completed [facility] of Vaccine Quad IM 3+ 00:00:00 [facility] Influenza Virus 2018-04-20 Completed [facility] of Vaccine Quad IM 3+ 00:00:00 [facility] Influenza Virus 2018-04-20 Completed [facility] of Vaccine Quad IM 3+ 00:00:00 [facility] Influenza Virus 2018-04-20 Completed [facility] of Vaccine Quad IM 3+ 00:00:00 [facility] Influenza Virus 2018-04-20 Completed [facility] of Vaccine Quad IM 3+ 00:00:00 [facility] Influenza Virus 2018-04-20 Completed [facility] of Vaccine Quad IM 3+ 00:00:00 [facility] Influenza Virus 2018-04-20 Completed [facility] of Vaccine Quad IM 3+ 00:00:00 [facility] Influenza Virus 2018-04-20 Completed [facility] of Vaccine Quad IM 3+ 00:00:00 [facility] Influenza Virus 2018-04-20 Completed [facility] Vaccine Quad IM 3+ 00:00:00 [facility] Influenza Virus 2018-04-20 Completed [facility] of Vaccine Quad IM 3+ 00:00:00 [facility] Influenza Virus 2018-04-20 Completed [facility] of Vaccine Quad IM 3+ 00:00:00 [facility] Influenza Virus 2018-04-20 Completed [facility] of Vaccine Quad IM 3+ 00:00:00 [facility] Influenza Virus 2018-04-20 Completed [facility] of Vaccine Quad IM 3+ 00:00:00 [facility] Influenza Virus 2018-04-20 Completed [facility] of Vaccine Quad IM 3+ 00:00:00 [facility] Influenza Virus 2018-04-20 Completed [facility] of Vaccine Quad IM 3+ 00:00:00 [facility] Influenza Virus 2018-04-20 Completed [facility] of Vaccine Quad IM 3+ 00:00:00 [facility] Influenza Virus 2018-04-20 Completed [facility] of Vaccine Quad IM 3+ 00:00:00 [facility] Influenza Virus 2018-04-20 Completed [facility] of Vaccine Quad IM 3+ 00:00:00 [facility] Influenza Virus 2018-04-20 Completed [facility] of Vaccine Quad IM 3+ 00:00:00 [facility] Influenza Virus 2018-04-20 Completed [facility] of Vaccine Quad IM 3+ 00:00:00 [facility] Influenza Virus 2018-04-20 Completed [facility] of Vaccine Quad IM 3+ 00:00:00 [facility] Influenza Virus 2018-04-20 Completed [facility] of Vaccine Quad IM 3+ 00:00:00 [facility] Influenza Virus 2018-04-20 Completed [facility] Vaccine Quad IM 3+ 00:00:00 [facility] Influenza Virus 2015-06-02 Completed [facility] Vaccine Quad ID 00:00:00 [facility] 18-64 Y[facility] Influenza Virus 2015-06-02 Completed [facility] Vaccine Quad ID 00:00:00 [facility] 18-64 YRS [facility] Influenza Virus 2015-06-02 Completed [facility] Vaccine Quad ID 00:00:00 [facility] 18-64 YRS Branch Influenza Virus 2015-06-02 Completed [facility] Vaccine Quad ID 00:00:00 [facility] 18-64 YRS Branch Influenza Virus 2015-06-02 Completed [facility] Vaccine Quad ID 00:00:00 [facility] 18-64 YRS Branch Influenza Virus 2015-06-02 Completed [facility] Vaccine Quad ID 00:00:00 [facility] 18-64 YRS Branch Influenza Virus 2015-06-02 Completed [facility] Vaccine Quad ID 00:00:00 [facility] 18-64 YRS Branch Influenza Virus 2015-06-02 Completed [facility] Vaccine Quad ID 00:00:00 [facility] 18-64 YRS Branch Influenza Virus 2015-06-02 Completed [facility] Vaccine Quad ID 00:00:00 [facility] 18-64 YRS Branch Influenza Virus 2015-06-02 Completed [facility] Vaccine Quad ID 00:00:00 [facility] 18-64 YRS Branch Influenza Virus 2015-06-02 Completed [facility] Vaccine Quad ID 00:00:00 [facility] 18-64 YRS Branch Influenza Virus 2015-06-02 Completed [facility] Vaccine Quad ID 00:00:00 [facility] 18-64 YRS Branch Influenza Virus 2015-06-02 Completed [facility] Vaccine Quad ID 00:00:00 [facility] 18-64 YRS Branch Influenza Virus 2015-06-02 Completed [facility] Vaccine Quad ID 00:00:00 [facility] 18-64 YRS Branch Influenza Virus 2015-06-02 Completed [facility] Vaccine Quad ID 00:00:00 [facility] 18-64 YRS Branch Influenza Virus 2015-06-02 Completed [facility] Vaccine Quad ID 00:00:00 [facility] 18-64 YRS Branch Influenza Virus 2015-06-02 Completed [facility] Vaccine Quad ID 00:00:00 [facility] 18-64 YRS Branch Influenza Virus 2015-06-02 Completed [facility] Vaccine Quad ID 00:00:00 [facility] 18-64 YRS Branch Influenza Virus 2015-06-02 Completed [facility] Vaccine Quad ID 00:00:00 [facility] 18-64 YRS [facility] Influenza Virus 2015-06-02 Completed [facility] Vaccine Quad ID 00:00:00 [facility] 18-64 YRS Branch Influenza Virus 2015-06-02 Completed [facility] Vaccine Quad ID 00:00:00 [facility] 18-64 YRS Branch Influenza Virus 2015-06-02 Completed [facility] Vaccine Quad ID 00:00:00 [facility] 18-64 YRS Branch Influenza Virus 2015-06-02 Completed [facility] of Vaccine Quad ID 00:00:00 [facility] ical 18-64 YRS Branch Influenza Virus 2015-06-02 Completed [facility] of Vaccine Quad ID 00:00:00 [facility] ical 18-64 YRS Branch Influenza Virus 2015-06-02 Completed [facility] of Vaccine Quad ID 00:00:00 [facility] ical 18-64 YRS Branch Influenza Virus 2015-06-02 Completed [facility] of Vaccine Quad ID 00:00:00 [facility] ical 18-64 YRS Branch Influenza Virus 2015-06-02 Completed [facility] of Vaccine Quad ID 00:00:00 [facility] ical 18-64 YRS Branch Influenza Virus 2015-06-02 Completed [facility] of Vaccine Quad ID 00:00:00 [facility] ical 18-64 YRS Branch Influenza Virus 2015-06-02 Completed [facility] of Vaccine Quad ID 00:00:00 [facility] ical 18-64 YRS Branch Influenza Virus 2015-06-02 Completed [facility] of Vaccine Quad ID 00:00:00 [facility] 18-64 YRS Branch Influenza Virus 2015-06-02 Completed [facility] Vaccine Quad ID 00:00:00 [facility] 18-64 YRS Branch Influenza Virus 2015-06-02 Completed [facility] Vaccine Quad ID 00:00:00 [facility] 18-64 YRS Branch Influenza Virus 2015-06-02 Completed [facility] Vaccine Quad ID 00:00:00 [facility] 18-64 YRS Branch Influenza Virus 2015-06-02 Completed [facility] Vaccine Quad ID 00:00:00 [facility] ical 18-64 YRS Branch Influenza Virus 2015-06-02 Completed [facility] Vaccine Quad ID 00:00:00 [facility] 18-64 YRS Branch Influenza Virus 2015-06-02 Completed [facility] Vaccine Quad ID 00:00:00 [facility] 18-64 YRS Branch Influenza Virus 2015-06-02 Completed [facility] Vaccine Quad ID 00:00:00 [facility] 18-64 YRS Branch Influenza Virus 2015-06-02 Completed [facility] Vaccine Quad ID 00:00:00 [facility] 18-64 YRS Branch Influenza Virus 2015-06-02 Completed [facility] Vaccine Quad ID 00:00:00 [facility] 18-64 YRS Branch Influenza Virus 2015-06-02 Completed [facility] Vaccine Quad ID 00:00:00 [facility] 18-64 YRS Branch Influenza Virus 2015-06-02 Completed [facility] of Vaccine Quad ID 00:00:00 [facility] ical 18-64 YRS Branch Influenza Virus 2015-06-02 Completed [facility] of Vaccine Quad ID 00:00:00 [facility] ical 18-64 YRS Branch Influenza Virus 2015-06-02 Completed [facility] of Vaccine Quad ID 00:00:00 [facility] ical 18-64 YRS Branch Influenza Virus 2015-06-02 Completed [facility] Vaccine Quad ID 00:00:00 [facility] 18-64 YRS Branch Influenza Virus 2015-06-02 Completed [facility] of Vaccine Quad ID 00:00:00 [facility] ical 18-64 YRS Branch Influenza Virus 2015-06-02 Completed [facility] of Vaccine Quad ID 00:00:00 [facility] ical 18-64 YRS Branch Influenza Virus 2015-06-02 Completed [facility] of Vaccine Quad ID 00:00:00 [facility] 18-64 YRS [facility] Influenza Virus 2015-06-02 Completed [facility] Vaccine Quad ID 00:00:00 [facility] 18-64 YRS Branch Influenza Virus 2015-06-02 Completed [facility] Vaccine Quad ID 00:00:00 [facility] 18-64 YRS [facility] Influenza Virus 2015-06-02 Completed [facility] of Vaccine Quad ID 00:00:00 [facility] ical 18-64 YRS Branch TDAP 2013-03-02 Completed University of 00:00:00 [facility] TDAP 2013-03-02 Completed University of 00:00:00 [facility] TDAP 2013-03-02 Completed [facility] of 00:00:00 [facility] TDAP 2013-03-02 Completed [facility] 00:00:00 [facility] TDAP 2013-03-02 Completed [facility] 00:00:00 [facility] TDAP 2013-03-02 Completed [facility] 00:00:00 [facility] TDAP 2013-03-02 Completed [facility] 00:00:00 [facility] TDAP 2013-03-02 Completed [facility] 00:00:00 [facility] TDAP 2013-03-02 Completed [facility] 00:00:00 [facility] TDAP 2013-03-02 Completed [facility] 00:00:00 [facility] TDAP 2013-03-02 Completed [facility] 00:00:00 [facility] TDAP 2013-03-02 Completed [facility] 00:00:00 [facility] TDAP 2013-03-02 Completed [facility] of 00:00:00 [facility] TDAP 2013-03-02 Completed [facility] of 00:00:00 [facility] TDAP 2013-03-02 Completed [facility] 00:00:00 [facility] TDAP 2013-03-02 Completed [facility] 00:00:00 [facility] TDAP 2013-03-02 Completed [facility] 00:00:00 [facility] TDAP 2013-03-02 Completed [facility] 00:00:00 [facility] TDAP 2013-03-02 Completed [facility] 00:00:00 [facility] TDAP 2013-03-02 Completed [facility] 00:00:00 [facility] TDAP 2013-03-02 Completed [facility] 00:00:00 [facility] TDAP 2013-03-02 Completed [facility] 00:00:00 [facility] TDAP 2013-03-02 Completed [facility] 00:00:00 [facility] TDAP 2013-03-02 Completed [facility] 00:00:00 [facility] TDAP 2013-03-02 Completed [facility] 00:00:00 [facility] TDAP 2013-03-02 Completed [facility] 00:00:00 [facility] TDAP 2013-03-02 Completed [facility] 00:00:00 [facility] TDAP 2013-03-02 Completed [facility] 00:00:00 [facility] TDAP 2013-03-02 Completed [facility] 00:00:00 [facility] TDAP 2013-03-02 Completed [facility] 00:00:00 [facility] TDAP 2013-03-02 Completed [facility] 00:00:00 [facility] TDAP 2013-03-02 Completed [facility] 00:00:00 [facility] TDAP 2013-03-02 Completed [facility] 00:00:00 [facility] TDAP 2013-03-02 Completed [facility] 00:00:00 [facility] TDAP 2013-03-02 Completed [facility] 00:00:00 [facility] TDAP 2013-03-02 Completed [facility] 00:00:00 [facility] TDAP 2013-03-02 Completed [facility] 00:00:00 [facility] TDAP 2013-03-02 Completed [facility] 00:00:00 [facility] TDAP 2013-03-02 Completed [facility] 00:00:00 [facility] TDAP 2013-03-02 Completed [facility] of 00:00:00 [facility] TDAP 2013-03-02 Completed [facility] of 00:00:00 [facility] TDAP 2013-03-02 Completed [facility] of 00:00:00 [facility] TDAP 2013-03-02 Completed [facility] of 00:00:00 [facility] TDAP 2013-03-02 Completed [facility] of 00:00:00 [facility] Branch TDAP 2013-03-02 Completed [facility] of 00:00:00 [facility] Branch TDAP 2013-03-02 Completed [facility] of 00:00:00 [facility] TDAP 2013-03-02 Completed [facility] of 00:00:00 [facility] TDAP 2013-03-02 Completed [facility] of 00:00:00 [facility] TDAP 2013-03-02 Completed [facility] of 00:00:00 [facility] TDAP 2013-03-02 Completed [facility] of 00:00:00 [facility] Influenza Virus Unknown Completed [facility] Vaccine Quad ID [place] [facility] 18-64 Y[facility] Influenza Virus Unknown Completed [facility] of Vaccine Quad IM 3+ [facility] YRS Branch TDAP Unknown Completed [facility] of [facility] SARS-COV-2 COVID-19 Unknown Completed Unive rsity of MODERNA 12+ YRS [place] [facility] VACCINE Branch SARS-COV-2 COVID-19 Unknown Completed Unive rsity of MODERNA 12+ YRS [place] [facility] VACCINE [facility] Influenza Virus Unknown Completed [facility] of Vaccine Recomb Quad [facility] IM, Preserv and ABX Branc h Free 18-64 YRS Influenza Virus Unknown Completed [facility] Vaccine Recomb Quad [facility], Preserv and ABX Branc h Free 18-64 YRS Influenza Virus Unknown Completed [facility] Vaccine Recomb Quad [facility], Preserv and ABX Branc h Free 18-64 YRS SARS-COV-2 COVID-19 Unknown Completed Unive rsity of MODERNA 0.25ML [place] [facility] BOOST[facility] VACCINE Branch SARS-COV-2 COVID-19 Unknown Completed Unive rsity of VACCINE 12 YRS+, [place] [facility] BIVALENT 0.5ML, IM, Branc h (MODERNA-BLUE TOP) Influenza Virus Unknown Completed [facility] Vaccine Quad IM, [place] [facility] Preserv and ABX Branch Free 6 MO-64 YRS (FLUCELVAX) Influenza Virus Unknown Completed [facility] of Vaccine Quad ID [facility] ica 18-64 YRS Branch Influenza Virus Unknown Completed [facility] y of Vaccine Quad IM 3+ [facility] YRS Branch TDAP Unknown Completed [facility] SARS-COV-2 COVID-19 Unknown Completed Unive rsity of MODERNA 12+ YRS [facility] ica VACCINE Branch SARS-COV-2 COVID-19 Unknown Completed Unive rsity of MODERNA 12+ YRS [facility] VACCINE Branch Influenza Virus Unknown Completed [facility] of Vaccine Recomb Quad [facility], Preserv and ABX Branc h Free 18-64 YRS Influenza Virus Unknown Completed [facility] Vaccine Recomb Quad [facility], Preserv and ABX Branc h Free 18-64 YRS Influenza Virus Unknown Completed [facility] Vaccine Recomb [facility] [place] [facility], Preserv and ABX Branc h Free 18-64 YRS SARS-COV-2 COVID-19 Unknown Completed Unive rsity of MODERNA 0.25ML [place] [facility] BOOSTER VACCINE Branch SARS-COV-2 COVID-19 Unknown Completed Unive rsity of VACCINE 12 YRS+, [place] [facility] BIVALENT 0.5ML, IM, Branc h (MODERNA-BLUE TOP) Influenza Virus Unknown Completed [facility]it y of Vaccine Quad IM, [place] [facility] Preserv and ABX Branch Free 6 MO-64 YRS (FLUCELVAX) Influenza Virus Unknown Completed Universit y of Vaccine Quad ID [facility] ical 18-64 YRS Branch Influenza Virus Unknown Completed [facility] of Vaccine Quad IM 3+ [place] [facility] Y[facility] Branch TDAP Unknown Completed [facility] SARS-COV-2 COVID-19 Unknown Completed Unive rsity of MODERNA 12+ YRS [place] [facility] VACCINE Branch SARS-COV-2 COVID-19 Unknown Completed Unive rsity of MODERNA 12+ YRS [place] [facility] VACCINE Branch Influenza Virus Unknown Completed [facility] Vaccine Recomb [facility] [place] [facility], Preserv and ABX Branc h Free 18-64 YRS Influenza Virus Unknown Completed [facility] Vaccine Recomb Quad [place] [facility], Preserv and ABX Branc h Free 18-64 YRS Influenza Virus Unknown Completed [facility] Vaccine Recomb [facility] [place] [facility], Preserv and ABX Branc h Free 18-64 YRS SARS-COV-2 COVID-19 Unknown Completed Unive rsity of MODERNA 0.25ML [place] [facility] BOOSTER VACCINE Branch SARS-COV-2 COVID-19 Unknown Completed Unive rsity of VACCINE 12 YRS+, [place] [facility] BIVALENT 0.5ML, IM, Branc h (MODERNA-BLUE TOP) Influenza Virus Unknown Completed [facility] Vaccine Quad IM, [place] [facility] Preserv and ABX Branch Free 6 MO-64 YRS (FLUCELVAX) Influenza Virus Unknown Completed [facility]it y of Vaccine Quad ID [facility] ical 18-64 YRS Branch SARS-COV-2 COVID 19 Unknown Completed Unive rsity of SPIKE PROTEIN [place] [facility] VACCINE 12+, Branch [id number], 50 mcg/0.5 ml, IM MODERNA Influenza Virus Unknown Completed [facility]it y of Vaccine Quad ID [facility] ical 18-64 YRS Branch Influenza Virus Unknown Completed [facility] of Vaccine Quad IM 3+ [place] [facility] TDAP Unknown Completed [facility] SARS-COV-2 COVID-19 Unknown Completed Unive rsity of MODERNA 12+ YRS [place] [facility] VACCINE Branch SARS-COV-2 COVID-19 Unknown Completed Unive rsity of MODERNA 12+ YRS [place] [facility] VACCINE Branch Influenza Virus Unknown Completed [facility] Vaccine Recomb Quad [place] [facility], Preserv and ABX Branc h Free 18-64 YRS Influenza Virus Unknown Completed [facility] Vaccine Recomb Quad [place] [facility], Preserv and ABX Branc h Free 18-64 YRS Influenza Virus Unknown Completed [facility] Vaccine Recomb Quad [place] [facility], Preserv and ABX Branc h Free 18-64 YRS SARS-COV-2 COVID-19 Unknown Completed Unive rsity of MODERNA 0.25ML [place] [facility] BOOSTER VACCINE Branch SARS-COV-2 COVID-19 Unknown Completed Unive rsity of VACCINE 12 YRS+, [place] [facility] BIVALENT 0.5ML, IM, Branc h (MODERNA-BLUE TOP) Influenza Virus Unknown Completed [facility] of Vaccine Quad IM, [place] [facility] Preserv and ABX Branch Free 6 MO-64 YRS (FLUCELVAX) Influenza Virus Unknown Completed [facility]it y of Vaccine Quad ID [facility] ical 18-64 YRS Branch SARS-COV-2 COVID 19 Unknown Completed Unive rsity of SPIKE PROTEIN [place] [facility] VACCINE 12+, Branch [id number], 50 mcg/0.5 ml, IM MODERNA Influenza Virus Unknown Completed [facility]it y of Vaccine Quad ID [facility] ica 18-64 YRS Branch Influenza Virus Unknown Completed [facility] Vaccine Quad IM 3+ [place] [facility] Y[facility] TDAP Unknown Completed [facility] SARS-COV-2 COVID-19 Unknown Completed Unive rsity of MODERNA 12+ YRS [facility] VACCINE Branch SARS-COV-2 COVID-19 Unknown Completed Unive rsity of MODERNA 12+ YRS [facility] VACCINE Branch Influenza Virus Unknown Completed [facility] Vaccine Recomb Quad [place] [facility], Preserv and ABX Branc h Free 18-64 YRS Influenza Virus Unknown Completed [facility] Vaccine Recomb Quad [facility], Preserv and ABX Branc h Free 18-64 YRS Influenza Virus Unknown Completed [facility] Vaccine Recomb [facility], Preserv and ABX Branc h Free 18-64 YRS SARS-COV-2 COVID-19 Unknown Completed [facility]ive rsity of MODERNA 0.25ML [place] [facility] BOOSTER VACCINE Branch SARS-COV-2 COVID-19 Unknown Completed Unive rsity of VACCINE 12 YRS+, [place] [facility] BIVALENT 0.5ML, IM, Branc h (MODERNA-BLUE TOP) Influenza Virus Unknown Completed [facility] Vaccine Quad IM, [place] [facility] Preserv and ABX Branch Free 6 MO-64 YRS (FLUCELVAX) Influenza Virus Unknown Completed [facility]it y of Vaccine Quad ID [facility] ical 18-64 YRS Branch SARS-COV-2 COVID 19 Unknown Completed Unive rsity of SPIKE PROTEIN [place] [facility] VACCINE 12+, Branch [id number], 50 mcg/0.5 ml, IM MODERNA Influenza Virus Unknown Completed [facility]it y of Vaccine Quad ID [facility] ical 18-64 YRS Branch Influenza Virus Unknown Completed [facility]it y of Vaccine Quad IM 3+ [facility] YRS Branch TDAP Unknown Completed [facility] SARS-COV-2 COVID-19 Unknown Completed Unive rsity of MODERNA 12+ YRS [facility] ica VACCINE Branch SARS-COV-2 COVID-19 Unknown Completed Unive rsity of MODERNA 12+ YRS [facility] VACCINE Branch Influenza Virus Unknown Completed [facility]it y of Vaccine Recomb Quad [facility] IM, Preserv and ABX Branc h Free 18-64 YRS Influenza Virus Unknown Completed [facility] Vaccine Recomb Quad [place] [facility], Preserv and ABX Branc h Free 18-64 YRS Influenza Virus Unknown Completed [facility]it y of Vaccine Recomb Quad [facility] IM, Preserv and ABX Branc h Free 18-64 YRS SARS-COV-2 COVID-19 Unknown Completed Unive rsity of MODERNA 0.25ML [facility] [place] [facility] itz BOOSTER VACCINE Branch SARS-COV-2 COVID-19 Unknown Completed Unive rsity of VACCINE 12 YRS+, [place] [facility] BIVALENT 0.5ML, IM, Branc h (MODERNA-BLUE TOP) Influenza Virus Unknown Completed [facility] of Vaccine Quad IM, [place] [facility] Preserv and ABX Branch Free 6 MO-64 YRS (FLUCELVAX) Influenza Virus Unknown Completed [facility]it y of Vaccine Quad ID [facility] 18-64 YRS Branch SARS-COV-2 COVID 19 Unknown Completed Unive rsity of SPIKE PROTEIN [place] [facility] VACCINE 12+, Branch [id number], 50 mcg/0.5 ml, IM MODERNA Influenza Virus Unknown Completed Universit y of Vaccine Quad ID [facility] 18-64 YRS Branch Influenza Virus Unknown Completed [facility]it y of Vaccine Quad IM 3+ [facility] YRS Branch TDAP Unknown Completed [facility] SARS-COV-2 COVID-19 Unknown Completed Unive rsity of MODERNA 12+ YRS [facility] VACCINE Branch SARS-COV-2 COVID-19 Unknown Completed Unive rsity of MODERNA 12+ YRS [facility] ica VACCINE Branch Influenza Virus Unknown Completed [facility] y of Vaccine Recomb Quad [facility] IM, Preserv and ABX Branc h Free 18-64 YRS Influenza Virus Unknown Completed [facility]it y of Vaccine Recomb Quad [facility] IM, Preserv and ABX Branc h Free 18-64 YRS Influenza Virus Unknown Completed [facility] Vaccine Recomb Quad [place] [facility], Preserv and ABX Branc h Free 18-64 YRS SARS-COV-2 COVID-19 Unknown Completed [facility]ive rsity of MODERNA 0.25ML [place] [facility] BOOSTER VACCINE Branch SARS-COV-2 COVID-19 Unknown Completed Unive rsity of VACCINE 12 YRS+, [place] [facility] BIVALENT 0.5ML, IM, Branc h (MODERNA-BLUE TOP) Influenza Virus Unknown Completed [facility] Vaccine Quad IM, [place] [facility] Preserv and ABX Branch Free 6 MO-64 YRS (FLUCELVAX) Influenza Virus Unknown Completed [facility] y of Vaccine Quad ID [facility] ica 18-64 YRS Branch SARS-COV-2 COVID 19 Unknown Completed Unive rsity of SPIKE PROTEIN [place] [facility] VACCINE 12+, Branch [id number], 50 mcg/0.5 ml, IM MODERNA Influenza Virus Unknown Completed [facility]it y of Vaccine Quad ID [facility] ica 18-64 YRS Branch Influenza Virus Unknown Completed [facility]it y of Vaccine Quad IM 3+ [facility] YRS Branch TDAP Unknown Completed [facility] SARS-COV-2 COVID-19 Unknown Completed Unive rsity of MODERNA 12+ YRS [facility] ica VACCINE Branch SARS-COV-2 COVID-19 Unknown Completed Unive rsity of MODERNA 12+ YRS [facility] VACCINE Branch Influenza Virus Unknown Completed [facility] Vaccine Recomb [facility] [place] [facility], Preserv and ABX Branc h Free 18-64 YRS Influenza Virus Unknown Completed [facility] Vaccine Recomb Quad [place] [facility], Preserv and ABX Branc h Free 18-64 YRS Influenza Virus Unknown Completed [facility] Vaccine Recomb [facility], Preserv and ABX Branc h Free 18-64 YRS SARS-COV-2 COVID-19 Unknown Completed Unive rsity of MODERNA 0.25ML [place] [facility] BOOSTER VACCINE Branch SARS-COV-2 COVID-19 Unknown Completed Unive rsity of VACCINE 12 YRS+, [place] [facility] BIVALENT 0.5ML, IM, Branc h (MODERNA-BLUE TOP) Influenza Virus Unknown Completed [facility] of Vaccine Quad IM, [place] [facility] Preserv and ABX Branch Free 6 MO-64 YRS (FLUCELVAX) Influenza Virus Unknown Completed [facility]it y of Vaccine Quad ID [facility] ical 18-64 YRS Branch SARS-COV-2 COVID 19 Unknown Completed Unive rsity of SPIKE PROTEIN [place] [facility] VACCINE 12+, Branch [id number], 50 mcg/0.5 ml, IM MODERNA Influenza Virus Unknown Completed [facility]it y of Vaccine Quad ID [facility] ical 18-64 YRS Branch Influenza Virus Unknown Completed [facility] y of Vaccine Quad IM 3+ [place] [facility] TDAP Unknown Completed [facility] SARS-COV-2 COVID-19 Unknown Completed Unive rsity of MODERNA 12+ YRS [place] [facility] VACCINE Branch SARS-COV-2 COVID-19 Unknown Completed Unive rsity of MODERNA 12+ YRS [facility] ica VACCINE Branch Influenza Virus Unknown Completed [facility] of Vaccine Recomb Quad [place] [facility], Preserv and ABX Branc h Free 18-64 YRS Influenza Virus Unknown Completed [facility]it y of Vaccine Recomb Quad [facility] IM, Preserv and ABX Branc h Free 18-64 YRS Influenza Virus Unknown Completed [facility]it y of Vaccine Recomb Quad [facility] IM, Preserv and ABX Branc h Free 18-64 YRS SARS-COV-2 COVID-19 Unknown Completed Unive rsity of MODERNA 0.25ML [place] [facility] itz BOOSTER VACCINE Branch SARS-COV-2 COVID-19 Unknown Completed Unive rsity of VACCINE 12 YRS+, [place] [facility] BIVALENT 0.5ML, IM, Branc h (MODERNA-BLUE TOP) Influenza Virus Unknown Completed [facility] of Vaccine Quad IM, [place] [facility] Preserv and ABX Branch Free 6 MO-64 YRS (FLUCELVAX) Influenza Virus Unknown Completed [facility]it y of Vaccine Quad ID [facility] ical 18-64 YRS Branch SARS-COV-2 COVID 19 Unknown Completed Unive rsity of SPIKE PROTEIN [place] [facility] VACCINE 12+, Branch [id number], 50 mcg/0.5 ml, IM MODERNA Vital Signs Vital Name Observation Time Observation Value Comments Source Systolic blood 2023-06-08 15:05:00 135 mm[Hg] Univer sity of pressure [facility] Diastolic blood 2023-06-08 15:05:00 65 mm[Hg] Unive rsity of pressure [facility] Heart rate 2023-06-08 15:05:00 84 /min Universi ty of [facility] Respiratory rate 2023-06-08 15:05:00 18 /min [facility] [place] [facility] Body height 2023-06-08 15:05:00 180.3 cm [facility] [place] [facility] Body weight 2023-06-08 15:05:00 111.041 kg [facility] [place] [facility] BMI 2023-06-08 15:05:00 34.14 kg/m2 [facility] [place] [facility] Oxygen saturation in 2023-06-08 15:05:00 97 /min University of Arterial blood by [place] [employer] itz Pulse oximetry Branch Systolic blood 2023 03:00:00 126 mm[Hg] Univer sity of pressure [facility] Diastolic blood 2023 03:00:00 69 mm[Hg] Unive rsity of pressure [facility] Heart rate 2023 03:00:00 69 /min [facility] [place] [facility] Respiratory rate 2023 03:00:00 14 /min [facility] [place] [facility] Oxygen saturation in 2023 03:00:00 95 /min [facility] P[facility]xim[facility] Body temperature 2023 00:44:00 36.61 Maritza Univ [facility] [place] [facility] Body height 2023 00:44:00 180.3 cm [facility] [place] [facility] Body weight 2023 00:44:00 112.175 kg [facility] [place] [facility] BMI 2023 00:44:00 34.49 kg/m2 [facility] [place] [facility] Systolic blood 2023-04-06 19:16:00 136 mm[Hg] Univer sity of pressure [facility] Diastolic blood 2023-04-06 19:16:00 64 mm[Hg] Unive rsity of pressure [facility] Heart rate 2023-04-06 19:16:00 95 /min [facility] [place] [facility] Body temperature 2023-04-06 19:16:00 36.67 Maritza [facility] [place] [facility] Respiratory rate 2023-04-06 19:16:00 18 /min [facility] [place] [facility] Body height 2023-04-06 19:16:00 180.3 cm [facility] [place] [facility] Body weight 2023-04-06 19:16:00 119.568 kg [facility] [place] [facility] BMI 2023-04-06 19:16:00 36.76 kg/m2 [facility] [place] [facility] Systolic blood 2023-03-16 16:18:00 137 mm[Hg] Univer sity of pressure [facility] Diastolic blood 2023-03-16 16:18:00 68 mm[Hg] Unive rsity of pressure [facility] Heart rate 2023-03-16 16:18:00 81 /min [facility] [place] [facility] Respiratory rate 2023-03-16 16:18:00 19 /min [facility] [place] [facility] Body height 2023-03-16 16:18:00 180.3 cm [facility] [place] [facility] Body weight 2023-03-16 16:18:00 120.022 kg [facility] [place] [facility] BMI 2023-03-16 16:18:00 36.90 kg/m2 [facility] [place] [facility] Oxygen saturation in 2023-03-16 16:18:00 94 /min [facility] of Arterial blood by [place] [employer] it[facility] Pulse oximetry Branch Systolic blood 2023-02-28 16:43:00 127 mm[Hg] Univer sity of pressure [facility] Diastolic blood 2023-02-28 16:43:00 74 mm[Hg] Unive rsity of pressure [facility] Heart rate 2023-02-28 16:43:00 96 /min [facility] [place] [facility] Body temperature 2023-02-28 16:43:00 36.67 Maritza [facility] [place] [facility] Respiratory rate 2023-02-28 16:43:00 18 /min [facility] [place] [facility] Body height 2023-02-28 16:43:00 180.3 cm [facility] [place] [facility] Body weight 2023-02-28 16:43:00 118.389 kg [facility] [place] [facility] BMI 2023-02-28 16:43:00 36.40 kg/m2 [facility] [place] [facility] Oxygen saturation in 2023-02-28 16:43:00 94 /min [facility] Arterial blood by [place] [employer] Pulse oximetry Branch Systolic blood 2023-02-23 13:12:00 162 mm[Hg] Univer sity of pressure [facility] Diastolic blood 2023-02-23 13:12:00 91 mm[Hg] Unive rsity of pressure [facility] Heart rate 2023-02-23 13:11:00 83 /min [facility] [place] [facility] Respiratory rate 2023-02-23 13:11:00 18 /min [facility] [place] [facility] Body height 2023-02-23 13:11:00 180.3 cm [facility] [place] [facility] Body weight 2023-02-23 13:11:00 118.933 kg [facility] [place] [facility] BMI 2023-02-23 13:11:00 36.57 kg/m2 [facility] [place] [facility] Oxygen saturation in 2023-02-23 13:11:00 98 /min [facility] Arterial blood by [place] [facility] Pulse oximetry Branch Systolic blood 2022-10-25 13:41:00 135 mm[Hg] Univer sity of pressure [facility] Diastolic blood 2022-10-25 13:41:00 67 mm[Hg] Unive rsity of pressure [facility] Heart rate 2022-10-25 13:41:00 83 /min [facility] [place] [facility] Body temperature 2022-10-25 13:41:00 36.89 Maritza [facility] [place] [facility] Respiratory rate 2022-10-25 13:41:00 16 /min [facility] [place] [facility] Body height 2022-10-25 13:41:00 180.3 cm [facility] [place] [facility] Body weight 2022-10-25 13:41:00 132.904 kg [facility] [place] [facility] BMI 2022-10-25 13:41:00 40.87 kg/m2 [facility] [place] [facility] Oxygen saturation in 2022-10-25 13:41:00 93 /min [facility] Arterial blood by [place] [employer] [facility] Pulse oximetry Branch Body weight 2022-08-03 16:51:00 148.598 kg [facility] [place] [facility] BMI 2022-08-03 16:51:00 45.69 kg/m2 [facility] [place] [facility] Body weight 2022-06-22 14:10:00 145.831 kg [facility] [place] [facility] BMI 2022-06-22 14:10:00 44.84 kg/m2 [facility] [place] [facility] Systolic blood 2022-05-07 13:17:00 143 mm[Hg] Univer sity of pressure [facility] Diastolic blood 2022-05-07 13:17:00 82 mm[Hg] Unive rsity of pressure [facility] Heart rate 2022-05-07 13:16:00 94 /min [facility] [place] [facility] Body temperature 2022-05-07 13:16:00 36.72 Maritza [facility] [place] [facility] Body height 2022-05-07 13:16:00 180.3 cm [facility] [place] [facility] Body weight 2022-05-07 13:16:00 141.976 kg [facility] [place] [facility] BMI 2022-05-07 13:16:00 43.65 kg/m2 [facility] [place] [facility] Oxygen saturation in 2022-05-07 13:16:00 97 /min University of Arterial blood by [facility] itz Pulse oximetry Branch Systolic blood 2022-04-30 20:17:00 131 mm[Hg] Univer sity of pressure [facility] Diastolic blood 2022-04-30 20:17:00 76 mm[Hg] Unive rsity of pressure [facility] Heart rate 2022-04-30 20:15:00 93 /min [facility] [place] [facility] Body temperature 2022-04-30 20:15:00 37.22 Maritza [facility] [place] [facility] Body height 2022-04-30 20:15:00 180.3 cm [facility] [place] [facility] Body weight 2022-04-30 20:15:00 141.522 kg [facility] [place] [facility] BMI 2022-04-30 20:15:00 43.52 kg/m2 [facility] [place] [facility] Oxygen saturation in 2022-04-30 20:15:00 99 /min [facility] Arterial blood by [place] [facility] Pulse oximetry Branch Systolic blood 2022-04-29 20:06:00 144 mm[Hg] Univer sity of pressure [facility] Diastolic blood 2022-04-29 20:06:00 77 mm[Hg] Unive rsity of pressure [facility] Heart rate 2022-04-29 20:06:00 72 /min [facility] [place] [facility] Body temperature 2022-04-29 20:06:00 36.44 Maritza [facility] [place] [facility] Respiratory rate 2022-04-29 20:06:00 18 /min Univ ersity of [facility] Body height 2022-04-29 20:06:00 180.3 cm [facility] [place] [facility] Body weight 2022-04-29 20:06:00 141.522 kg Universi ty [facility] BMI 2022-04-29 20:06:00 43.52 kg/m2 Universi ty [facility] Oxygen saturation in 2022-04-29 20:06:00 99 /min [facility] Arterial blood by [facility] Pulse oximetry Branch Body weight 2022-03-08 20:08:00 139.209 kg Universi ty of [facility] BMI 2022-03-08 20:08:00 42.80 kg/m2 Universi [facility] Systolic blood 2022-03-08 20:08:00 122 mm[Hg] Univer sity of pressure [facility] Diastolic blood 2022-03-08 20:08:00 78 mm[Hg] Unive rsity of pressure [facility] Heart rate 2022-03-08 20:08:00 111 /min Universi ty of [facility] Body height 2022-03-08 20:08:00 180.3 cm Universi [facility] Systolic (mm Hg) 2022-08-05 21:10:00 [facility] Diastolic (mm Hg) 2022-08-05 21:10:00 [facility] Heart Rate 2022-08-05 21:10:00 [facility] Height 2022-08-05 21:10:00 5 [ft_i] [facility] Weight 2022-08-05 21:10:00 [facility] BMI Calculated 2022-08-05 21:10:00 [facility] Systolic (mm Hg) 2021-08-05 21:27:00 [facility] [place] Diastolic (mm Hg) 2021-08-05 21:27:00 [facility] [place] Heart Rate 2021-08-05 21:27:00 [facility] Respitory Rate 2021-08-05 21:27:00 [facility] Height 2021-08-05 21:27:00 170.18 cm [facility] Weight 2021-08-05 21:27:00 [facility] BMI Calculated 2021-08-05 21:27:00 [facility] [place] Systolic (mm Hg) 2020-08-29 15:22:00 [facility] Diastolic (mm Hg) 2020-08-29 15:22:00 [facility] [place] Heart Rate 2020-08-29 15:22:00 [facility] Respitory Rate 2020-08-29 15:22:00 [facility] Height 2020-08-29 15:22:00 180.34 cm [facility] Weight 2020-08-29 15:22:00 [facility] BMI Calculated 2020-08-29 15:22:00 [facility] [place] Systolic (mm Hg) 2020-04-18 20:40:00 [facility] Diastolic (mm Hg) 2020-04-18 20:40:00 [facility] [place] Heart Rate 2020-04-18 20:40:00 [facility] Respitory Rate 2020-04-18 20:40:00 [facility] [place] Height 2020-04-18 20:40:00 175.26 cm [facility] Weight 2020-04-18 20:40:00 [facility] BMI Calculated 2020-04-18 20:40:00 [facility] BMI Calculated 2019-05-03 14:33:00 [facility] [place] Systolic (mm Hg) 2019-05-03 14:33:00 Hugh [facility] Diastolic (mm Hg) 2019-05-03 14:33:00 [facility] [place] Heart Rate 2019-05-03 14:33:00 [facility] Respitory Rate 2019-05-03 14:33:00 [facility] [place] Height 2019-05-03 14:33:00 172.72 cm [facility] Weight 2019-05-03 14:33:00 [facility] Height 2018-05-02 14:11:00 180.34 cm [facility] BMI Calculated 2018-05-02 14:11:00 [facility] Weight 2018-05-02 14:11:00 [facility] Heart Rate 2018-05-02 14:11:00 [facility] Systolic (mm Hg) 2018-05-02 14:11:00 [facility] Diastolic (mm Hg) 2018-05-02 14:11:00 [facility] [place] Procedures Procedure Date / Time Performing Clinician Source Performed URINALYSIS 2023 02:16:00 Bere Vasquezherine [facility] CT ABDOMEN PELVIS W 2023 02:01:46 Rosana Vasquez [facility] CONTRAST Medical Branch LIPASE 2023 01:01:00 Derick [facility] COMP. METABOLIC PANEL 2023 01:01:00 Rosana Vasquez [facility] ([id number]) [facility] [place] CBC WITH DIFF 2023 01:01:00 Derick [facility] NOTICE OF PRIVACY 2023 00:24:29 Doctor Unassigned, No [facility] PRACTICES [facility] CONSENT/REFUSAL FOR 2023 00:23:55 Doctor Unassigned, No [facility] DIAGNOSIS AND TREATMENT [facility] VACCINATIONS - CONSENTS, 2023-05-04 05:01:00 Doctor Unassigned, No [facility] ELIGIBILITY, HISTORY [facility] POCT URINALYSIS AUTO 2023-04-06 00:00:00 Corazon Ambrose [facility] DME/SUPPLY JUSTIFICATION 2023-03-16 05:01:00 Doctor Unassigned, No [facility] POCT URINALYSIS AUTO 2023-02-28 16:07:00 Corazon Ambrose [facility] POCT URINALYSIS AUTO 2022-10-25 12:57:00 Corazon Ambrose [facility] FLU VACC (), 6 2022-04-29 14:09:08 Doctor Unassigned, N o [facility] MO-64 YRS, .5ML, IM, [facility] QUAD (FLUCELVAX) SARS-COV-2 COVID-19 2022-04-29 14:00:57 Doctor Unassigned, No [facility] VACCINE 18 YRS+, [facility] BIVALENT 0.5ML, IM (MODERNA BOOSTER) ASSIGNMENT OF BENEFITS 2022-04-29 13:37:23 Doctor Unassigned, No [facility] SCANNED LAB RESULTS 2022-02-25 05:01:00 [facility] Unassigned, No [facility] [place] [facility] Laminectomy for [facility] decompression and exploration Encounters Start End Encounter Admission Attending Care Care Encounter Source Date/Time Date/Time Type Type Clinicians Facility Department ID 2021-05-28 Outpatient Jason BURTON [facility] VLS [id number] [facility] 19:22:02 [facility]IO [facility] [place] [facility] [facility] 2021-[facility]-[address] [facility] [id number] Univers 12:33:36 SERJIO rod [facility] 2023-08-05 2023-08-05 Outpatient MHIE MHIE [id number] Memoria 09:15:00 09:15:00 15 l Leonard 2023-07-06 2023-07-[address] [facility] [id number] Univers 15:30:00 15:30:00 CORAZON rod o f [facility] 2023-06-08 2023-06-08 Office [facility] 1.2.840.114 [id number] Univers 09:00:00 09:30:00 Visit [facility] 350.1.13.10 it y of [place] 4.2.7.2.686 Eb as ALBINO?BLEA [phone] Ks dillon [address] MEDICAL OFFICE BUILDING 2023-06-08 2023-06-[address] [facility] [id number] Univers 09:00:00 09:00:00 ARAM joanie [facility] 2023-06-02 2023-06-02 Emergency X [facility] ERT [id number] Univers 19:48:00 23:34:00 ROSANA ity [facility] 2023-06-02 2023-06-02 Emergency [facility] 1.2.826.468 [id number] Univers 19:48:00 23:34:00 Rosana JONAS 350.1.13.10 ity of [place].2.7.2.[place] [id number] [address] 2023-06-02 2023-06-02 Orders Doctor OBREGON 1.2.840.114 [id number] Univers 00:00:00 00:00:00 Only Unassigned, GIOVANNY 350.1.13.10 ity of [place] [facility] 4.2.7.2.686 Eb as [phone] [address] 2023-06-01 2023-06-01 [facility] 1.2.840.114 [id number] Univers 00:00:00 00:00:00 Corazon [place] 350.1.13.10 ity of [facility] 4.2.7.2.686 [place] PROFESS[place] [id number] [address] 2023-05-22 2023-05-22 [facility] 1.2.840.114 [id number] Univers 00:00:00 00:00:00 Aram HEALTH 350.1.13.10 it y of [facility] 4.2.7.2.686 Eb as ALBINO?BLEA [id number] [address] MEDICAL OFFICE [facility] 2023-05-04 2023-05-04 Orders Doctor OBREGON 1.2.840.114 [id number] Univers 00:00:00 00:00:00 Only Unassigned, GIOVANNY 350.1.13.10 ity of [place] [facility] 4.2.7.2.686 Eb as [id number] [address] 2023-05-02 2023-05-02 [facility] 1.2.840.114 [id number] Univers 00:00:00 00:00:00 Coraozn [place] 350.1.13.10 ity of [facility] 4.2.7.2.[place] [id number] [address] 2023-04-30 2023-04-30 [facility] RaulDZIL[facility] 1.2.840.114 [id number] Univers 00:00:00 00:00:00 Mike HEALTH 350.1.13.10 it y of Dragan [facility] 4.2.7.2.686 Eb as ALBINO?BLEA [id number] [address] OFFICE [facility] 2023-04-12 2023-04-[address] [facility] [id number] Univers 08:30:00 08:30:00 SERGO ity of [facility] 2023-04-06 2023-04-06 Outpatient R [facility] [id number] Univers 14:15:00 14:32:52 CORAZON rod o f [facility] 2023-04-06 2023-04-06 Office [facility] 1.2.840.114 [id number] Univers 14:15:00 14:32:52 Visit Corazon MERCADOJOSEPH 350.1.13.10 ity of [facility] 4.2.7.2.686 [place] PROF[place] [phone] Ks dic[address] 2023-04-06 2023-04-06 Telephone [facility] 1..840.114 [id number] Univers 00:00:00 00:00:00 [facility] 350.1.13.10 i ty of [place] 4.2.7.2.[place] [phone] [place]s dical [address] 2023-04-05 2023-04-05 Outpatient R [facility] [id number] Univers 09:30:00 09:30:00 CORAZON amato [facility] 2023-04-01 2023-04-[address] [facility] [id number] Univers 10:00:00 10:00:00 ity of [facility] 2023-03-20 2023-03-20 Refchristian StaplesDZ[facility] 1..840.114 [id number] Univers 00:00:00 00:00:00 [facility] 350.1.13.10 it y of [place] 4.2.7.2.686 Eb as ALBINO?BLEA [phone] [place]s dillon [address] OFFICE [facility] 2023-03-16 2023-03-16 Outpatient R KIRSTY [facility]IC[facility]E [facility] [id number] Univers 11:30:00 11:36:06 KIRSTY VICENTE ity [facility] 2023-03-16 2023-03-16 Office Cinth[facility] 1..085.949 [id number] [id number] Univers 11:30:00 11:36:06 Visit Linetteberlin Parsons [place] 350.1.13.10 ity of [place] 4.2.7.2.[place] [id number] Ks dical NAL 085 [facility] 2023-03-16 2023-03-16 Orders Doctor MINDI 1.2.840.114 [id number] Univers 00:00:00 00:00:00 Only Unassigned, GIOVANNY 350.1.13.10 ity of [place] [facility] 4.2.7.2.686 Eb as [id number] [address] 2023-03-14 2023-03-14 Telephone Blu [facility] 1.2.840.114 1 [id number] Univers 00:00:00 00:00:00 Sergo FELDER 350.1.13.10 it y of [place]ALTH [id number] [facility] [address] 2023-03-09 2023-03-09 Telephone Jensen [facility] 1.2.696.763 2450 [id number] [facility] 00:00:00 00:00:00 Aram[employer]com 350.1.13.10 it y of [place] 4.2.7.2.686 Eb as ALBINO?BLEA 509.9715491 [place]s dillon CHRISTELLEEY 044 [facility] OFFICE [facility] 2023-02-28 2023-02-28 Outpatient R [facility] [id number] Univers 11:30:00 12:08:32 CORAZON gardnery o f [facility] 2023-02-28 2023-02-28 Office Ambrose, [facility] 1.2.840.114 [id number] Univers 11:30:00 12:08:32 Visit Corazon JONAS 350.1.13.10 ity of [place].2.7.2.[place] [phone] Ks [facility] 204 [facility] 2023-02-23 2023-02-23 Pickling [facility], Ang - Shelton [facility] 1.2.840.1 14 [id number] Univers 09:00:00 09:15:00 Visit Aram Staples [facility] 350.1.13.10 ity of [place] 4.2.7.2.686 Eb as ALBNIO?BLEA [phone] Ks dillon FONTANEZ 353 [facility] OFFICE [facility] 2023-02-23 2023-02-23 Outpatient R [facility] [id number] Univers 09:00:00 09:00:00 ARAM [facility] 2023-02-23 2023-02-23 Office JensenD[facility] 1.2.840.114 [id number] Univers 08:15:00 08:52:24 Visit [facility] 350.1.13.10 it y of [place] 4.2.7.2.686 Be as ALBINO?BLEA [id number] [address] OFFICE [facility] 2023-02-20 2023-02-20 Refill [facility] 1.2.840.114 [id number] Univers 00:00:00 00:00:00 [facility] 350.1.13.10 it y of [place] 4.2.7.2.686 Eb as ALBINO?BLEA [id number] [address] OFFICE [facility] 2023-02-14 2023-02-[address] [facility] [id number] Univers 09:30:00 09:30:00 EULALIO [facility] 2023-02-03 2023-02-03 Outpatient R [facility]LECT [facility] [id number] Univers 11:15:00 11:15:00 ESTELLE [facility] 2023-01-04 2023-01-04 Refchristian CarterDZ[facility] 1.2.840.114 [id number] Univers 00:00:00 00:00:00 [facility] 350.1.13.10 it y of Edward [place] 4.2.7.2.686 Eb as ALBINO?BLEA [id number] [address] OFFICE [facility] 2022-12-10 2022-12-10 Refchristian StaplesD[facility] 1.2.840.114 [id number] Univers 00:00:00 00:00:00 [facility] 350.1.13.10 it y of [place] 4.2.7.2.686 Eb as ALBINO?BLEA [phone] Ks dickailey FONTANEZ [address] [place] [address] 2022-12-10 2022-12-10 [facility] 1.2.840.114 [id number] Univers 00:00:00 00:00:00 Aram HEALTH 350.1.13.10 it y of [place] 4.2.7.2.686 Eb as ALBINO?BLEA [phone] [place]s dickailey [address] 2022-11-15 2022-11-15 [facility] 1.2.840.114 [id number] Univers 00:00:00 00:00:00 [facility] 350.1.13.10 it y of [place] 4.2.7.2.686 Eb as ALBINO?BLEA [id number] [address] 2022-10-25 2022-10-25 Outpatient R [facility] 1044 [id number] Univers 08:45:00 09:21:29 CORAZON rod o f [facility] 2022-10-25 2022-10-25 Office Ambrose, [facility] 1.2.840.114 101 [id number] Univers 08:45:00 09:21:29 Visit Corazon [facility] 350.1.13.10 ity of [facility] 4.2.7.2.686 [place] [phone] [place]s dillon [address] 2022-09-15 2022-09-15 [facility] 1.2.840.114 [id number] Univers 00:00:00 00:00:00 [facility] 350.1.13.10 it y of [place] 4.2.7.2.686 Eb as ALBINO?BLEA [phone] Ks dical CHRISTELLE[address] 2022-08-05 2022-08-06 Outpatient JERI CRESPO [id number] Memoria 21:00:00 05:59:59 Neurology 14 l Petrona Valle 2022-08-05 2022-08-05 Outpatient [facility] 737 [id number] 15:00:00 23:59:59 Keith 14 Alvaro 2022-08-05 2022-08-05 Outpatient JERI ADELE [id number] [facility] 15:00:00 15:00:00 14 berlin Valle 2022-08-03 2022-08-[address] [facility] [id number] [facility] 11:15:00 11:43:09 ESTELLE rod [facility] 2022-08-03 2022-08-03 Office NAZIA Hoover 1.2.840.114 [id number] [facility] 11:15:00 11:43:09 Visit Estelle Y 350.1.13.10 it y of [place] 4.2.7.2.686 Eb as BANK [id number] [address] 2022-08-02 2022-08-02 Refchristian JaramilloDZILTH[facility] 1.2.840.114 [id number] Univers 00:00:00 00:00:00 Abdiaziz HEALTH 350.1.13.10 it y of [place] 4.2.7.2.686 Eb as ALBINO?BLEA [id number] [address] OFFICE [facility] 2022-07-30 2022-07-30 Refchristian JraamilloDZILTH-[facility] 1.2.840.114 [id number] Univers 00:00:00 00:00:00 Abdiaziz HEALTH 350.1.13.10 it y of [place] 4.2.7.2.686 Eb as ALBINO?BLEA [id number] [address] OFFICE [facility] 2022-07-14 2022-07-14 Refchristian StaplesDZ[facility] 1.2.840.114 [id number] Univers 00:00:00 00:00:00 Aram HEALTH 350.1.13.10 it y of [place] 4.2.7.2.686 Eb as ALBINO?BLEA [id number] [address] OFFICE [facility] 2022-06-22 2022-06-[address] [facility] [id number] Univers 08:00:00 08:55:05 ESTELLE rod [facility] 2022-06-22 2022-06-22 Office NAZIA Hoover 1.2.840.114 [id number] Univers 08:00:00 08:55:05 Visit Estelle Y 350.1.13.10 it y of [place] 4.2.7.2.686 Eb as BANK [id number] [facility] BLDG. [address] 2022-05-07 2022-05-07 Outpatient R [facility] [id number] Univers 08:30:00 08:45:42 ABDIAZIZ rod [facility] 2022-05-07 2022-05-07 Office EllaD[facility] 1.2.840.114 [id number] Univers 08:30:00 08:45:42 Visit Abdiaziz HEALTH 350.1.13.10 it y of [place] 4.2.7.2.686 Eb as ALBINO?BLEA [phone] [address] OFFICE [facility] 2022-04-30 2022-04-30 Outpatient R [facility]LECT [facility] [id number] Univers 15:30:00 15:36:38 ABDIAZIZ rod [facility] 2022-04-30 2022-04-30 Office [facility]aD[facility] 1.2.840.114 [id number] Univers 15:30:00 15:36:38 Visit Abdiaziz COLLADO 350.1.13.10 it y of [place] 4.2.7.2.686 Eb as ALBINO?BLEA [id number] [address] OFFICE [facility] 2022-04-30 2022-04-30 Abstract JensenDZIL[facility] 1.2.840.114 [id number] Univers 00:00:00 00:00:00 Aram HEALTH 350.1.13.10 it y of [place] 4.2.7.2.686 Eb as ALBINO?BLEA [id number] [address] OFFICE [facility] 2022-04-29 2022-04-[address] [facility] [id number] Univers 15:00:00 15:03:11 SERGO rod [facility] 2022-04-29 2022-04-29 Office [facility] 1.2.840.114 [id number] Univers 15:00:00 15:03:11 Visit Sergo [facility] 350.1.13.10 i ty of [place].2.7.2.[place] ESSIO [phone] Ks dillon CADENA 204 [facility] 2022-04-29 2022-04-29 Nurse Nurse, Shantanu Peoples [facility] 1.2.840.114 [id number] Univers 09:00:00 09:19:24 Visit Eliel [facility] 350.1.13.10 ity of [place] 4.2.7.2.686 Eb as ALBINO?BLEA [id number] [facility] [address] MEDICAL OFFICE [facility] 2022-04-29 2022-04-29 Orders Doctor MINDI 1.2.840.114 [id number] Univers 00:00:00 00:00:00 Only Unassigned, GIOVANNY 350.1.13.10 ity of [place] [facility] 4.2.7.2.686 Eb as [phone] [address] 2022-04-13 2022-04-13 Telephone Jensen [facility] 1.2.488.771 [id number] Univers 00:00:00 00:00:00 [facility] 350.1.13.10 it y of [place] 4.2.7.2.686 Eb as ALBINO?BLEA [id number] [address] OFFICE [facility] 2022-04-02 2022-04-02 Refill Jensen [facility] 1.2.840.114 [id number] Univers 00:00:00 00:00:00 [facility] 350.1.13.10 it y of [place] 4.2.7.2.686 Eb as ALBINO?BLEA [id number] [address] OFFICE [facility] 2022-03-17 2022-03-17 Refill Jensen NJMICHELLE 1.2.840.114 [id number] Univers 00:00:00 00:00:00 [facility] 350.1.13.10 it y of [place] 4.2.7.2.686 Eb as ALBINO?BLEA [id number] [address] OFFICE [facility] 2022-03-10 2022-03-10 Telephone Jensen [facility] 1.2.348.625 [id number] Univers 00:00:00 00:00:00 [facility] 350.1.13.10 it y of [place] 4.2.7.2.686 Eb as ALBINO?BLEA [phone] [address] MEDICAL OFFICE [facility] 2022-03-08 2022-03-08 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 2022-03-08 2022-03-08 Office [facility] 1.2.840.114 [id number] Univers 15:15:00 15:30:00 Visit [facility] 350.1.13.10 it y of [place] 4.2.7.2.686 Eb as ALBINO?BLEA [id number] [address] OFFICE [facility] 2022-03-08 2022-03-08 Outpatient R [facility] [id number] Univers 15:15:00 15:15:[address] [facility] 2022-02-25 2022-02-25 Orders Doctor OBREGON 1.2.840.114 [id number] Univers 00:00:00 00:00:00 Only Unassigned, GIOVANNY 350.1.13.10 ity of [place] [facility] 4.2.7.2.686 Eb as [id number] [address] 2022-02-16 2022-02-16 Refill [facility] 1.2.840.114 [id number] Univers 00:00:00 00:00:00 [facility] 350.1.13.10 it y of [facility] 4.2.7.2.686 Eb as ALBINO?BLEA [id number] [address] OFFICE [facility] 2021-11-03 2021-11-03 Telephone StaplseDZILTH[facility] 1.2.354.007 [id number] [id number] Univers 00:00:00 00:00:00 Aram HEALTH 350.1.13.10 it y of [facility] 4.2.7.2.686 Eb as ALBINO?BLEA 786.0935263 [address] 2021-10-27 2021-10-27 Orders Doctor MINDI 1.2.840.114 [id number] Univers 00:00:00 00:00:00 Only Unassigned, GIOVANNY 350.1.13.10 ity of [place] [facility] 4.2.7.2.686 Eb as [id number] [address] 2021-10-23 2021-10-23 Telephone [facility] 1.2.398.277 [id number] Univers 00:00:00 00:00:00 Aram HEALTH 350.1.13.10 it y of [facility] 4.2.7.2.686 Eb as ALBINO?BLEA 685.4837751 [address] 2021-10-01 2021-10-01 Orders Doctor MINDI 1.2.840.114 [id number] Univers 00:00:00 00:00:00 Only Unassigned, GIOVANNY 350.1.13.10 ity of [place] [facility] 4.2.7.2.686 Eb as [id number] [address] 2021-09-24 2021-09-[address] [facility] [id number] Univers 07:30:00 07:30:00 ARAM rod [facility] 2021-09-23 2021-09-[address] [facility] [id number] Univers 14:15:00 14:15:00 ARAM rod [facility] 2021-09-20 2021-09-20 Refchristian StaplesD[facility] 1.2.840.114 [id number] Univers 00:00:00 00:00:00 Aram JONAS 350.1.13.10 i ty of [place].2.[place]ESS[place] [phone] Ks dickailey NAL [address] [place] [address] 2021-09-13 2021-09-13 Refchristian Staples [facility] 1.2.840.114 [id number] Univers 00:00:00 00:00:00 Aram JONAS 350.1.13.10 i ty of [facility] 4.2.7.2.686 [place] PROFESS[place] 388.7424326 Ks dic[address] 2021-08-05 2021-08-06 Outpatient nullFlavo MNA [id number] Memoria 21:30:00 05:59:59 r Neurology 13 l Petrona Valle 2021-08-05 2021-08-05 Outpatient MONIKA MendiolaMISCHER MISCHER 413 [id number] 15:30:00 23:59:59 Keith 13 Alvaro 2021-08-05 2021-08-05 Outpatient MHIE MHIE [id number] Memoria 15:30:00 15:30:00 13 berlin Valle 2021-08-04 2021-08-04 Orders Doctor MINDI 1.2.840.114 [id number] Univers 00:00:00 00:00:00 Only Unassigned, GIOVANNY 350.1.13.10 ity of [place] [facility] 4.2.7.2.686 Eb as [id number] [address] 2021-08-03 2021-08-03 Telephone [facility] 1.2.408.260 [id number] Univers 00:00:00 00:00:00 Aram [facility] 350.1.13.10 it y of [place] 4.2.7.2.686 Eb as ALBINO?BLEA [id number] [address] MEDICAL OFFICE [facility] 2021-06-28 2021-06-28 Refchristian Staples [facility] 1.2.840.114 [id number] Univers 00:00:00 00:00:00 Aram JONAS 350.1.13.10 i ty of [facility] 4.2.7.2.686 [place] PROF[place] 312.8836171 Ks dic[address] 2021-06-12 2021-06-12 Imm/Inj Vaccine, Ang Db Cbc Fam [facility] 1. 2.840.114 [id number] Univers 09:50:13 10:00:13 Visit JensenElielAramalon COLLADO 350.1.13.10 ity of [facility] 4.2.7.2.686 Eb as ALBINO?BLEA [phone] [address] OFFICE [facility] 2021-06-12 2021-06-12 Outpatient R [facility] [id number] Univers 10:00:00 10:00:00 ARAM ity [facility] 2021-05-08 2021-05-08 Telephone [facility] 1.2.457.708 [id number] Univers 00:00:00 00:00:00 AramFormerly [facility] 350.1.13.10 it y of [place] 4.2.7.2.686 Eb as Albino?Blea [phone] [address] Office [facility] 2021-05-08 2021-05-08 Orders Doctor MINDI 1.2.840.114 [id number] Univers 00:00:00 00:00:00 Only Unassigned, GIOVANNY 350.1.13.10 ity of [place] [facility] 4.2.7.2.686 Eb as [id number] [address] 2021-03-22 2021-03-22 Refchristian [facility] 1.2.840.114 [id number] Univers 00:00:00 00:00:00 Aram Jonas 350.1.13.10 i ty of [place].2.[place] Profess[place] [phone] [address] 2021-03-15 2021-03-15 Constantino [facility] 1.2.840.114 [id number] Univers 00:00:00 00:00:00 Aram Jonas 350.1.13.10 i ty of [place].2.[place] Profess[place] [id number] [address] 2021-03-08 2021-03-08 Constantino [facility] 1.2.840.114 [id number] Univers 00:00:00 00:00:00 Aram Jonas 350.1.13.10 i ty of [place]2.[place].2.[place] Profess[place] [id number] [address] 2021-03-04 2021-03-04 Telephone Jensen [facility] 1.2.243.403 [id number] Univers 00:00:00 00:00:00 AramFormerly [facility] 350.1.13.10 it y of [place] 4.2.7.2.686 Eb as Professio [id number] [address] One 2021-02-18 2021-02-18 Orders Doctor MINDI 1.2.840.114 [id number] Univers 00:00:00 00:00:00 Only Unassigned, GIOVANNY 350.1.13.10 ity of [place] [facility] 4.2.7.2.686 Eb as 433.0923080 [address] 2021-01-07 2021-01-07 Office Jensen [facility] 1.2.840.114 [id number] Univers 12:29:42 12:44:42 Visit [facility] 350.1.13.10 it y of [place] 4.2.7.2.686 Eb as Professio [phone] [address] 2021-01-07 2021-01-[address] [facility] [id number] Univers 12:30:00 12:30:00 ARAM rod [facility] 2021-01-07 2021-01-07 Orders Doctor MINDI 1.2.840.114 [id number] Univers 00:00:00 00:00:00 Only Unassigned, GIOVANNY 350.1.13.10 ity of [facility] 4.2.7.2.686 Eb as [phone] [address] 2020-12-31 2020-12-[address] [facility] [id number] Univers 14:30:00 14:30:00 ARAM rod [facility] 2020-12-28 2020-12-28 Refill Jensen [facility] 1.2.840.114 [id number] Univers 00:00:00 00:00:00 Aram Jonas 350.1.13.10 i [place] [phone] [facility] nal [address] [place] [address] 2020-12-26 2020-12-26 Telephone [facility] 1.2.317.404 [id number] Univers 00:00:00 00:00:00 Aram [facility] 350.1.13.10 it y of [place] 4.2.7.2.686 Eb as Professio [phone] [address] Office [facility] One 2020-12-19 2020-12-19 [facility] 1.2.840.114 [id number] Univers 13:15:02 14:09:39 Visit Eryn Rojas [facility] 350.1.13.10 i ty of [place] 4.2.7.2.686 Eb as Professio [phone] [address] 2020-12-19 2020-12-19 [facility] [id number] Univers 13:30:00 13:30:00 ERYN rod of [facility] 2020-12-14 2020-12-14 Refill [facility] 1.2.840.114 [id number] Univers 00:00:00 00:00:00 Aram Jonas 350.1.13.10 i [place] [phone] [address] 2020-09-21 2020-09-21 [facility] 1.2.840.114 [id number] Univers 00:00:00 00:00:00 Aram Jonas 350.1.13.10 i [place]2.[place] [phone] [address] 2020-09-18 2020-09-18 Ambulatory nullFlavo MNA [id number] Memoria 14:15:00 14:15:00 Pre-Reg r Neurology 12 l [place] 2020-09-18 2020-09-18 Outpatient MHIE ADELE [id number] Memoria 08:15:00 08:15:00 12 [place] 2020-09-18 2020-09-18 [facility] [id number] 08:15:00 08:15:00 Keith 12 Alvaro 2020-09-03 2020-09-[address] [facility] [id number] Univers 13:10:00 13:10:00 [facility] 2020-08-31 2020-08-31 [facility] 1.2.840.114 [id number] Univers 00:00:00 00:00:00 Aram Jonas 350.1.13.10 i [facility] 4.2.7.2.686 Bebeto Cody [phone] [place] [address] 2020-08-29 2020-08-30 Outpatient nullFlavo MNA [id number] Memoria 15:15:00 05:59:59 r Neurology 11 l [place] 2020-08-29 2020-08-29 [facility] [id number] 09:15:00 23:59:59 Keith 11 Alvaro 2020-08-29 2020-08-29 Outpatient MHIE MHIE [id number] Memoria 09:15:00 09:15:00 11 [place] Valle 2020-08-06 2020-08-[address] [facility] [id number] Univers 13:40:00 13:40:00 [facility] 2020-06-10 2020-06-10 Ambulatory nullFlavo MNA [id number] Memoria 15:15:00 15:15:00 Pre-Reg r Neurology 08 l [place] 2020-06-10 2020-06-10 Ambulatory nullFlavo MNA [id number] Memoria 15:15:00 15:15:00 Pre-Reg r Neurology 07 l [place] 2020-06-10 2020-06-10 Outpatient MHIE MHIE [id number] Memoria 09:15:00 09:15:00 07 l [place] 2020-06-10 2020-06-10 Outpatient MHIE MHIE [id number] Memoria 09:15:00 09:15:00 08 l [place] 2020-06-10 2020-06-10 Outpatient Krell, MHMISCHER MHMISCHER [id number] 09:15:00 09:15:00 Keith 07 Alvaro 2020-06-10 2020-06-10 Outpatient Krell, MHMISCHER MHMISCHER [id number] 09:15:00 09:15:00 Keith 08 [facility] 2020-05-30 2020-05-31 Outpatient nullFlavo MNA [id number] Memoria 16:00:00 04:59:59 r Neurology 10 l [place]ron[place] Tuckerann 2020-05-30 2020-05-30 Outpatient Krell, MHMISCHER MHMISCHER [id number] 11:00:00 23:59:59 Keith 10 [facility] 2020-05-30 2020-05-30 Outpatient MHIE MHIE [id number] Memoria 11:00:00 11:00:00 10 [place] 2020-04-25 2020-04-25 Orders Doctor MINDI 1.2.840.114 [id number] Univers 00:00:00 00:00:00 Only Unassigned, GIOVANNY 350.1.13.10 ity of [place] [facility] 4.2.7.2.686 Eb as [phone] [address] 2020-04-23 2020-04-23 Telephone [facility] 1.2.659.664 [id number] [facility] 00:00:00 00:00:00 [facility] 350.1.13.10 it y of [place] 4.2.7.2.686 Eb as Professio [phone] K[place] dical nal 044 [facility] 2020-04-18 2020-04-19 Outpatient nullFlavo MNA [id number] Memoria 20:30:00 04:59:59 r Neurology 09 l [place] 2020-04-18 2020-04-18 Outpatient Toyinll, MHMISCHER MHMISCHER [id number] 15:30:00 23:59:59 Keith 09 [facility] 2020-04-18 2020-04-18 Outpatient MHIE MHIE [id number] Memoria 15:30:00 15:30:00 09 [place] 2020-03-28 2020-03-28 Telephone [facility] 1.2.360.194 [id number] Univers 00:00:00 00:00:00 [facility] 350.1.13.10 it y of [place] 4.2.7.2.686 Eb as Professio [phone] [address] 2020-03-28 2020-03-28 Telephone Jensen, [facility] 1.2.242.670 [id number] 00:00:00 00:00:00 [facility] 350.1.13.10 [place] 4.2.7.2.686 Professio [phone] [address] 2020-02-26 2020-02-26 Telephone Jensen, [facility] 1.2.323.992 [id number] [facility] 00:00:00 00:00:00 [facility] 350.1.13.10 it y of [place] 4.2.7.2.686 Eb as Professio [phone] [address] 2020-02-26 2020-02-26 Orders Doctor MINDI 1.2.840.114 [id number] Univers 00:00:00 00:00:00 Only Unassigned, GIOVANNY 350.1.13.10 ity of [place] [facility] 4.2.7.2.686 Eb as [phone] [address] 2020-02-26 2020-02-26 Telephone Jensen, [facility] 1.2.728.101 [id number] 00:00:00 00:00:00 [facility] 350.1.13.10 [place] 4.2.7.2.686 Professio [phone] [address] 2020-02-26 2020-02-26 Orders Doctor MINDI 1.2.840.114 [id number] 00:00:00 00:00:00 Only Unassigned, GIOVANNY 350.1.13.10 [place] [facility] 4.2.7.2.686 [phone] 009 2020-02-18 2020-02-18 Telephone Jensen, [facility] 1.2.530.520 [id number] Univers 00:00:00 00:00:00 [facility] 350.1.13.10 it y of [place] 4.2.7.2.686 Eb as Professio [phone] [address] 2020-02-18 2020-02-18 Telephone Jensen [facility] 1.2.399.106 [id number] 00:00:00 00:00:00 Aram [facility] 350.1.13.10 [place] 4.2.7.2.686 Professio [phone] [address] 2020-02-13 2020-02-13 Office Jensen [facility] 1.2.840.114 [id number] Univers 15:31:09 15:46:09 Visit Aram Jonas 350.1.13.10 i [place] [phone] [address] 2020-02-13 2020-02-13 Office [facility] 1.2.840.114 [id number] 15:31:09 15:46:09 Visit Aram Jonas 350.1.13.10 [place] 4.2.7.2.686 Professio [phone] [address] 2020-02-13 2020-02-[address] [facility] [id number] Univers 12:00:00 12:00:00 ARAM rod [facility] 2019-12-27 2019-12-27 Office Edwin [facility] 1.2.840.114 [id number] Univers 10:45:29 11:00:29 Visit [facility] 350.1.13.10 it y of [place] [facility] [place]2.[place] - [phone] [address] 2019-12-27 2019-12-[address] [facility] [id number] Univers 10:45:00 10:45:00 SERJIO rod [facility] 2019-12-07 2019-12-08 Outpatient nullFlavo MNA [id number] Memoria 20:45:00 04:59:59 r Neurology 06 l [place] 2019-12-07 2019-12-07 Outpatient KIT Mendiola [id number] 15:45:00 23:59:59 Keith Cassandra John 2019-12-07 2019-12-07 Outpatient MHIE MONIKAIE [id number] Memoria 15:45:00 15:45:00 06 bel[place] Valle 2019-12-04 2019-12-04 Office NAZIA Burton 1.2.033.959 [id number] Univers 12:48:12 13:03:12 Visit Serjio Mittal [facility] 350.1.13.10 i [place] [phone] [address] 2019-12-04 2019-12-[address] [facility] [facility] [id number] Univers 13:00:00 13:00:00 SERJIO ity [facility] 2019-11-30 2019-11-30 Hospital Edwin [facility] 1.2.840.114 [id number] Univers 10:22:00 18:19:00 Encounter Serjio Collado 350.1.13.10 it[place] of [place]2.[place] [facility] [phone] [address] ([facility]) 2019-11-30 2019-11-30 Ambulatory nullFlavo MNA [id number] Memoria 15:00:00 15:00:00 Pre-Reg r Neurology 05 l [place] 2019-11-30 2019-11-30 Outpatient KIT Mendiola MISCHER [id number] 10:00:00 10:00:00 Keith Sandhya John 2019-11-29 2019-11-29 Laboratory Nurse, [facility] General Surgery [facility] 1.2.840.114 [id number] Univers 08:01:09 09:17:34 Only Serjio [place] 350.1.13 .10 ity of [place]2.[place].2.[place] [facility] [phone] Ks dical [address] 2019-11-29 2019-11-[address] [facility] [id number] Univers 08:00:00 08:00:00 ity of [facility] 2019-11-29 2019-11-29 Telephone Edwin [facility] 1.2.370.006 [id number] Univers 00:00:00 00:00:00 Serjiokaityln Mercadoton 350.1.13.10 i ty [place].2.[place] Surgical [phone] [facility] [address] 2019-11-28 2019-11-28 Prep For Santana [facility] 1.2.840.114 [id number] Univers 00:00:00 00:00:00 Surgery [facility]phmashas [facility] 350.1.13.10 ity of [place].2.7.2.[place] - [phone] [facility] [address] 2019-11-28 2019-11-28 Telephone [facility] 1.2.340.624 [id number] Univers 00:00:00 00:00:00 Serjio [facility] 350.1.13.10 it y of [place].2.[place] - [phone] [address] 2019-11-16 2019-11-16 Telephone [facility] 1.2.107.877 [id number] Univers 00:00:00 00:00:00 [facility] 350.1.13.10 it y of [place] 4.2.7.2.686 Eb as Professio [phone] [place] dical nal [address] One 2019-11-01 2019-11-01 Outpatient MHIE MONIKAIE [id number] Memoria 09:30:00 09:30:00 05 l [place] 2019-10-03 2019-10-04 Office [facility] 1.2.840.114 [id number] Univers 12:42:52 12:38:28 Visit Serjio [facility] 350.1.13.10 it y of [place].2.[place] [phone] [address] Office Building 2019-10-03 2019-10-[address] [facility] [id number] Univers 13:15:00 13:15:00 SERJIO ity of [facility] 2019-09-26 2019-09-26 Office [facility] 1.2.840.114 [id number] Univers 14:46:55 15:01:55 Visit [facility] 350.1.13.10 it y of [place] 4.2.7.2.686 Eb as Professio [phone] [place] dical nal [address] [facility] 2019-09-26 2019-09-[address] [facility] [id number] Univers 15:00:00 15:00:00 ARAM ity of [facility] 2019-09-13 2019-09-13 Telephone Jensen [facility] 1.2.411.582 [id number] Univers 00:00:00 00:00:00 [facility] 350.1.13.10 it y of [place] 4.2.7.2.686 Eb as Professio [phone] [place] dical nal [address] [facility] 2019-09-12 2019-09-12 Telephone [facility] 1.2.835.111 [id number] Univers 00:00:00 00:00:00 [facility] 350.1.13.10 it y of [place] 4.2.7.2.686 Eb as Professio [phone] [place] dical nal [address] Building One 2019-09-11 2019-09-11 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 840.114 [id number] Univers 08:12:58 08:29:51 Visit Aram Staples 350.1.13.10 ity of [place] 4.2.7.2.686 Eb as Professio [phone] [place] dical nal [address] Office [facility] One 2019-09-10 2019-09-10 Office Sveta [facility] 1.2.840.114 [id number] Univers 14:10:26 14:56:59 Visit [facility] 350.1.13.10 it y of [place] 4.2.7.2.686 Eb as Professio [phone] [place]s dical nal [address] [facility] One 2019-09-10 2019-09-10 Orders Doctor MINDI 1.2.840.114 [id number] Univers 00:00:00 00:00:00 Only Unassigned, GIOVANNY 350.1.13.10 ity of [place] [facility] 4.2.7.2.686 Eb as [phone] [address] 2019-09-02 2019-09-02 [facility] 1.2.840.114 [id number] Univers 00:00:00 00:00:00 Eryn [facility] 350.1.13.10 i ty of [place] 4.2.7.2.686 Eb as Professio [phone] Ks dicla nal 044 [facility] One 2019-08-29 2019-08-29 Refill [facility] 1.2.840.114 [id number] Univers 00:00:00 00:00:00 Eryn [facility] 350.1.13.10 i ty of [place] 4.2.7.2.686 Eb as Professio [phone] Ks dicla nal 044 [facility] One 2019-08-15 2019-08-15 Orders Doctor MINDI 1.2.840.114 [id number] Univers 00:00:00 00:00:00 Only Unassigned, GIOVANNY 350.1.13.10 ity of [place] [facility] 4.2.7.2.686 Eb as [phone] [address] 2019-05-03 2019-05-04 Outpatient nullFlavo MNA [id number] Memoria 14:30:00 04:59:59 r Neurology 04 berlin [place] 2019-05-03 2019-05-03 Outpatient DELIO MendiolaSCHER MHMISCHER [id number] 09:30:00 23:59:59 Keith Calista [facility] 2019-05-03 2019-05-03 Outpatient MHIE MHIE [id number] Memoria 09:30:00 09:30:00 04 [place] 2019-05-02 2019-05-02 Ambulatory nullFlavo MNA [id number] Memoria 14:00:00 14:00:00 Pre-Reg r Neurology 03 berlin Russ [place] 2019-05-02 2019-05-02 Outpatient MHIE MHIE [id number] Memoria 09:00:00 09:00:00 03 [place] TuckerLeonard 2019-05-02 2019-05-02 Outpatient DELIO MendiolaSCHER MHMISCHER [id number] 09:00:00 09:00:00 Keith 03 [facility] 2019-03-09 2019-03-09 Telephone [facility] 1.2.539.628 [id number] Univers 00:00:00 00:00:00 Eryn [facility] 350.1.13.10 i ty of [place] 4.2.7.2.686 Eb as Professio [phone] [address] Office [facility] 2019-03-07 2019-03-07 [facility] RUBA Sheikh 1.2.840.114 [id number] Univers 09:14:05 23:59:00 Encounter Shraddha Tray 350.1.13.10 ity of [place] [facility] 4.2.7.2.686 Eb as [phone] [facility] [address] 2019-03-05 2019-03-05 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 840.114 [id number] Univers 07:51:48 08:20:43 Visit Eryn [facility] 350.1.13.10 ity of [place] 4.2.7.2.686 Eb as Professio [phone] [address] Office [facility] 2019-03-05 2019-03-05 Orders Doctor MINDI 1.2.840.114 [id number] Univers 00:00:00 00:00:00 Only Unassigned, GIOVANNY 350.1.13.10 ity of [place] [facility] 4.2.7.2.686 Eb as [phone] [facility] [address] 2019-03-02 2019-03-02 Office Adrianne, [facility] 1.2.840.114 [id number] Univers 08:47:43 09:36:52 Visit Eryn Ro[facility] 350.1.13.10 i ty of [place] 4.2.7.2.686 Eb as Professio [phone] [address] Office [facility] 2018-10-31 2018-10-31 Outpatient MONIKAIE JERI [id number] Memoria 09:00:00 09:00:00 02 [place] 2018-05-02 2018-05-03 Outpatient nullFlavo MNA [id number] Memoria 14:00:00 04:59:59 r Neurology 01 l Petrona Valle 2018-05-02 2018-05-02 Outpatient KIT MendiolaMISCH [id number] 09:00:00 23:59:59 Keith 01 Alvaro 2018-05-02 2018-05-02 Outpatient [facility] [id number] Memoria 09:00:00 09:00:00 01 berlin [place]le 2017-09-28 2017-09-28 Outpatient [facility] [id number] Memoria 13:00:00 13:00:00 00 berlin [place] Results Test Description Test Time Test Comments Results Result Comments Source CBC with Differential 2023 01:48:17 Test Item Value Reference Range Interpretation Comme nts WBC (test code = 6690-2) 9.02 See_Comment [A utomated message] The system which ge nerated this result transmit jam reference range: 4.20 - 1 0.70 10*3/?L. The reference r prosper was not used to interpr et this result as normal/abnor mal. RBC (test code = 789-8) 4.59 See_Comment [Au tomated message] The system which ge nerated this result transmit jam reference range: 4.26 - 5 .52 10*6/?L. The reference r prosper was not used to interpr et this result as normal/abnor mal. HGB (test code = 718-7) 14.8 g/dL 12.2-16.4 HCT (test code = 4544-3) 39.8 % 38.4-49.3 MCV (test code = 787-2) 86.7 fL 81.7-95.6 MCH (test code = 785-6) 32.2 pg 26.1-32.7 MCHC (test code = 786-4) 37.2 g/dL 31.2-35.0 H RDW-SD (test code = 46515-9) 37.5 fL 38.5-51.6 L RDW-CV (test code = 788-0) 11.8 % 12.1-15.4 L PLT (test code = 777-3) 254 See_Comment [Au tomated message] The system which ge nerated this result transmit jam reference range: 150 - 32 8 10*3/?L. The reference range was not used to interpret th is result as normal/abnormal . MPV (test code = 60866-7) 8.5 fL 9.8-13.0 L NRBC/100 WBC (test code = 0.0 See_Comment [ Automated message] The 9204358802) system which [email or web address] nerated this result transmit jam reference range: 0.0 - 10 .0 /100 WBCs. The reference r prosper was not used to interpr et this result as normal/abnor mal. NRBC x10^3 (test code = See_Comment [Au tomated message] The 0259007341) system which [email or web address] nerated this result transmit jam reference range: 10*3/?L. The reference range was not u sed to interpret this result as normal/abnormal . GRAN MAT (NEUT) % (test code 68.8 % = 770-8) IMM GRAN % (test code = 0.40 % 0461727901) LYMPH % (test code = 736-9) 16.2 % MONO % (test code = 5905-5) 13.1 % EOS % (test code = 713-8) 0.9 % BASO % (test code = 706-2) 0.6 % GRAN MAT x10^3(ANC) (test 6.21 10*3/uL 1.99-6.95 code = 0050183586) IMM GRAN x10^3 (test code = 0.04 10*3/uL 0.00-0.06 4750052653) LYMPH x10^3 (test code = 1.46 10*3/uL 1.09-3.23 731-0) MONO x10^3 (test code = 1.18 10*3/uL 0.36-1.02 H 742-7) EOS x10^3 (test code = 0.08 10*3/uL 0.06-0.53 711-2) BASO x10^3 (test code = 0.05 10*3/uL 0.01-0.09 704-7) Lab Interpretation (test Abnormal code = 71246-9) [facility] [id number] 01:33:51 Test Item Value Reference Range Interpretation Comments NA (test code = 121 mmol/L 135-145 L 6755651015) K (test code = 3.4 mmol/L 3.5-5.0 L 7902016910) CL (test code = 85 mmol/L 98-108 L 5748808338) CO2 TOTAL (test code = 24 mmol/L 23-31 8226339232) AGAP (test code = 12 2-16 8217916360) BUN (test code = 12 mg/dL 7-23 8416558258) GLUCOSE (test code = 113 mg/dL 70-110 H 3402682390) CREATININE (test code = 0.63 mg/dL 0.60-1.25 3668230634) TOTAL BILI (test code = 0.7 mg/dL 0.1-1.0 0456060377) CALCIUM (test code = 9.2 mg/dL 8.6-10.6 9376330156) T PROTEIN (test code = 7.5 g/dL 6.3-8.2 8578550113) ALBUMIN (test code = 4.3 g/dL 3.5-5.0 2873906681) ALK PHOS (test code = 63 U/L 34-122 8381433067) ALTv (test code = 33 U/L 5-50 1742-6) AST(SGOT) (test code = 41 U/L 13-40 H 0455286187) eGFR (test code = 106.2 mL/min/1.73m2 CKD-EPI e GFR 74460-7) (2020). Assumin g creatinine has been stable day-to-d ay for at least th ree months, the eGF R indicates Categ ory G1 (>= 90 mL/min/1.73 m2) Lab Interpretation (test Abnormal code = 81055-4) [facility], [id number] 01:33:10 Test Item Value Reference Range Interpretation Comments LIPASE (test code = 3270297404) 227 U/L 0-220 H Lab Interpretation (test code = Abnormal 04204-4) [facility], [id number] 19:27:00 Test Item Value Reference Range Interpretation Comments POCT U SP GRAV (test code = 1.015 mg/dl 1.005-1.025 3255) POCT PH U (test code = 3254) 7 mg/dl 5-8 POCT U LEUK EST (test code = Negative Negative - Negative 3263) POCT U NIT (test code = 3262) Negative Negative - Negative POCT U PROT (test code = Negative Negative - Negative 3259) POCT U GLU (test code = 3256) Negative Negative - Negative POCT U KETONE (test code = Negative Negative - Negative 3258) POCT U UROBILI (test code = 0.2 mg/dl 0.2-1 3260) POCT U BILI (test code = Negative Negative - Negative 3261) POCT U BLD (test code = 3257) Trace Negative - Negative POCT U COLOR (test code = 3266) POCT U APPEAR (test code = 3267) [facility] URINALYSIS, [id number] 19:27:00 Test Item Value Reference Range Interpretation Comments POCT U SP GRAV (test code = 1.015 mg/dl 1.005-1.025 3255) POCT PH U (test code = 3254) 7 mg/dl 5-8 POCT U LEUK EST (test code = Negative Negative - Negative 3263) POCT U NIT (test code = 3262) Negative Negative - Negative POCT U PROT (test code = Negative Negative - Negative 325) POCT U GLU (test code = 3256) Negative Negative - Negative POCT U KETONE (test code = Negative Negative - Negative 3258) POCT U UROBILI (test code = 0.2 mg/dl 0.2-1 3260) POCT U BILI (test code = Negative Negative - Negative 3261) POCT U BLD (test code = 3257) Trace Negative - Negative POCT U COLOR (test code = 3266) POCT U APPEAR (test code = 3267) [facility] URINALYSIS, [id number] 16:57:00 Test Item Value Reference Range Interpretation Comments POCT U SP GRAV (test code = 1.015 mg/dl 1.005-1.025 3255) POCT PH U (test code = 3254) 7.0 mg/dl 5-8 POCT U LEUK EST (test code = negative Negative - Negative 3263) POCT U NIT (test code = 3262) negative Negative - Negative POCT U PROT (test code = negative Negative - Negative 3259) POCT U GLU (test code = 3256) negative Negative - Negative POCT U KETONE (test code = trace Negative - Negative 3258) POCT U UROBILI (test code = 1.0 mg/dl 0.2-1 3260) POCT U BILI (test code = negative Negative - Negative 3261) POCT U BLD (test code = 3257) negative Negative - Negative POCT U COLOR (test code = yellow 3266) POCT U APPEAR (test code = clear 3267) [facility] URINALYSIS, [id number] 16:57:00 Test Item Value Reference Range Interpretation Comments POCT U SP GRAV (test code = 1.015 mg/dl 1.005-1.025 3255) POCT PH U (test code = 3254) 7.0 mg/dl 5-8 POCT U LEUK EST (test code = negative Negative - Negative 3263) POCT U NIT (test code = 3262) negative Negative - Negative POCT U PROT (test code = negative Negative - Negative 3259) POCT U GLU (test code = 3256) negative Negative - Negative POCT U KETONE (test code = trace Negative - Negative 8) POCT U UROBILI (test code = 1.0 mg/dl 0.2-1 3260) POCT U BILI (test code = negative Negative - Negative 3261) POCT U BLD (test code = 3257) negative Negative - Negative POCT U COLOR (test code = yellow 3266) POCT U APPEAR (test code = clear 3267) [facility] URINALYSIS, [id number] 12:57:00 Test Item Value Reference Range Interpretation Comments POCT U SP GRAV (test code = 1.015 mg/dl 1.005-1.025 3255) POCT PH U (test code = 3254) 7.0 mg/dl 5-8 POCT U LEUK EST (test code = negative Negative - Negative 3263) POCT U NIT (test code = negative Negative - Negative 3262) POCT U PROT (test code = negative Negative - Negative 3259) POCT U GLU (test code = negative Negative - Negative 3256) POCT U KETONE (test code = negative Negative - Negative 3258) POCT U UROBILI (test code = 1.0 mg/dl 0.2-1 3260) POCT U BILI (test code = negative Negative - Negative 3261) POCT U BLD (test code = trace-intact Negative - Negative 3257) POCT U COLOR (test code = yellow 3266) POCT U APPEAR (test code = clear 3267) [facility] URINALYSIS, [id number] 12:57:00 Test Item Value Reference Range Interpretation Comments POCT U SP GRAV (test code = 1.015 mg/dl 1.005-1.025 3255) POCT PH U (test code = 3254) 7.0 mg/dl 5-8 POCT U LEUK EST (test code = negative Negative - Negative 3263) POCT U NIT (test code = negative Negative - Negative 3262) POCT U PROT (test code = negative Negative - Negative 3259) POCT U GLU (test code = negative Negative - Negative 3256) POCT U KETONE (test code = negative Negative - Negative 3258) POCT U UROBILI (test code = 1.0 mg/dl 0.2-1 3260) POCT U BILI (test code = negative Negative - Negative 326) POCT U BLD (test code = trace-intact Negative - Negative 325) POCT U COLOR (test code = yellow 3266) POCT U APPEAR (test code = clear 3267) [facility] URINALYSIS, [id number] 12:57:00 Test Item Value Reference Range Interpretation Comments POCT U SP GRAV (test code = 1.015 mg/dl 1.005-1.025 3255) POCT PH U (test code = 3254) 7.0 mg/dl 5-8 POCT U LEUK EST (test code = negative Negative - Negative 3263) POCT U NIT (test code = negative Negative - Negative 3262) POCT U PROT (test code = negative Negative - Negative 3259) POCT U GLU (test code = negative Negative - Negative 3256) POCT U KETONE (test code = negative Negative - Negative 3258) POCT U UROBILI (test code = 1.0 mg/dl 0.2-1 3260) POCT U BILI (test code = negative Negative - Negative 3261) POCT U BLD (test code = trace-intact Negative - Negative 3257) POCT U COLOR (test code = yellow 3266) POCT U APPEAR (test code = clear 3267) [facility] URINALYSIS, [id number] 12:57:00 Test Item Value Reference Range Interpretation Comments POCT U SP GRAV (test code = 1.015 mg/dl 1.005-1.025 3255) POCT PH U (test code = 3254) 7.0 mg/dl 5-8 POCT U LEUK EST (test code = negative Negative - Negative 3263) POCT U NIT (test code = negative Negative - Negative 3262) POCT U PROT (test code = negative Negative - Negative 3259) POCT U GLU (test code = negative Negative - Negative 3256) POCT U KETONE (test code = negative Negative - Negative 3258) POCT U UROBILI (test code = 1.0 mg/dl 0.2-1 3260) POCT U BILI (test code = negative Negative - Negative 3261) POCT U BLD (test code = trace-intact Negative - Negative 3256) POCT U COLOR (test code = yellow 6) POCT U APPEAR (test code = clear 3267) [facility] URINALYSIS, [id number] 12:57:00 Test Item Value Reference Range Interpretation Comments POCT U SP GRAV (test code = 1.015 mg/dl 1.005-1.025 3255) POCT PH U (test code = 3254) 7.0 mg/dl 5-8 POCT U LEUK EST (test code = negative Negative - Negative 3263) POCT U NIT (test code = negative Negative - Negative 3262) POCT U PROT (test code = negative Negative - Negative 3259) POCT U GLU (test code = negative Negative - Negative 3256) POCT U KETONE (test code = negative Negative - Negative 3258) POCT U UROBILI (test code = 1.0 mg/dl 0.2-1 3260) POCT U BILI (test code = negative Negative - Negative 3261) POCT U BLD (test code = trace-intact Negative - Negative 3257) POCT U COLOR (test code = yellow 3266) POCT U APPEAR (test code = clear 3267) [facility]
[2023-06-08 20:25] LABS: Absolute Lymphocytes (CBC) 1.5 K/uL (0.7-4.9); Hematocrit 36.5 % (39.6-49.0); Lymphocytes % 16.6 % (15.3-44.8); MCV 88.4 fL (80-100); MPV 6.5 fL (7.6-11.3); Platelets 260 thou/uL (152-406); RBC Red Blood Cell Count 4.12 M/uL (4.33-5.43)
--- NOTE | 2023-06-08 20:40 | RAD REPORT ---
EXAM DESCRIPTION: RAD - Chest Single View - 06/08/2023 8:16 pm CLINICAL HISTORY: DYSPNEA Chest pain. COMPARISON: Chest Single View dated 12/06/2018 FINDINGS: Portable technique limits examination quality. The lungs are grossly clear. The heart is normal in size. No displaced fractures. IMPRESSION: No acute intrathoracic process suspected.
[2023-06-08 20:51] LABS: Magnesium 2.1 mg/dL (1.6-2.4); Potassium 3.3 mEq/L (3.5-5.1); Troponin High Sensitivity 8.6 pg/mL (<58.9)
[2023-06-08 21:02] LABS: SARS-COV-2 RT PCR NEGATIVE (NEGATIVE)
[2023-06-08] MEDS ORDERED: NA CHLORIDE 0.9% 500 ML ONE (21:58)
[2023-06-08 22:05] LABS: Specific Gravity 1.005 (1.005-1.030); Urine Bilirubin NEGATIVE (Negative); Urine Blood Negative (Negative); Urine Clarity Clear (Clear); Urine Color Colorless (Yellow); Urine Glucose NEGATIVE (Negative); Urine Protein NEGATIVE (Negative); Urine Urobilinogen Normal (Normal)
--- NOTE | 2023-06-08 22:33 | ER ---
Nurse's Notes [facility] Name: Luis Ryan Age: 63 yrs Sex: Male : 1960 Arrival Date: 06/08/2023 Time: 19:35 Bed 12 Private MD: Diagnosis: Hyponatremia;Weakness Presentation: 06/08 19:42 Chief complaint: Patient states: no energy, tired, weakness and SOB since this morning. lg3 Coronavirus screen: Client denies travel out of the [place] in the last 14 days. Ebola Screen: No symptoms or risks identified at this time. Initial Sepsis Screen: Does the patient meet any 2 criteria? No. Patient's initial sepsis screen is negative. Does the patient have a suspected source of infection? No. Patient's initial sepsis screen is negative. Risk Assessment: Do you want to hurt yourself or someone else? Patient reports no desire to harm self or others. Onset of symptoms was June 08, 2023. 19:42 Method Of Arrival: Ambulatory lg3 19:42 Acuity: HINA 3 lg3 Triage Assessment: 19:45 General: Appears in no apparent distress. comfortable, Behavior is calm, cooperative. lg3 Pain: Denies pain. EENT: No deficits noted. No signs and/or symptoms were reported regarding the EENT system. Neuro: No deficits noted. Sam Agitation-Sedation Scale (RASS): 0 - Alert and Calm Level of Consciousness is awake, alert, obeys commands, Oriented to person, place, time, situation. Neuro: Reports weakness. Cardiovascular: No deficits noted. Denies chest pain, Capillary refill < 3 seconds Clubbing of nail beds is absent JVD is absent Patient's skin is warm and dry. Respiratory: No deficits noted. Reports shortness of breath Airway is patent Respiratory effort is even, unlabored, Respiratory pattern is regular, symmetrical. GI: No deficits noted. No signs and/or symptoms were reported involving the gastrointestinal system. Abdomen is round non-distended, obese. : No deficits noted. No signs and/or symptoms were reported regarding the genitourinary system. Derm: No deficits noted. No signs and/or symptoms reported regarding the dermatologic system. Skin is intact, is healthy with good turgor, Skin is dry, Skin is normal, Skin temperature is warm. Musculoskeletal: No deficits noted. Circulation, motion, and sensation intact. Range of motion: intact in all extremities. Historical: - Allergies: 19:45 No Known Allergies; lg3 - Home Meds: 19:45 memantine 10 mg oral tablet 1 tab 2 times per day [Active]; atorvastatin 20 mg oral lg3 tablet 1 tab every day at bedtime [Active]; lisinopril-hydrochlorothiazide 20-25 mg Oral tab 1 tab once daily [Active]; hydrochlorothiazide 25 mg oral tablet daily [Active]; tamsulosin 0.4 mg oral capsule 1 cap twice a day [Active]; montelukast 10 mg oral tablet 1 tab daily [Active]; - PMHx: 19:45 Alzheimers; early in dx 11/2018 (2019); Hypertension; enlarged prostate (Hypertension); lg3 high cholesterol (Hypertension); - PSHx: 19:45 left arm (Hypertension); bilateral knee replacement (Hypertension); back lg3 (Hypertension); inguinal hernia repair (Hypertension); - Immunization history:: Adult Immunizations up to date. - Social history:: Smoking status: Patient denies any tobacco usage or history of. Patient/guardian denies using alcohol, street drugs. Screenin:10 [facility] ED Fall Risk Assessment (Adult) History of falling in the last 3 months, vc1 including since admission No falls in past 3 months (0 pts) Confusion or Disorientation No (0 pts) Intoxicated or Sedated No (0 pts) Impaired Gait No (0 pts) Mobility Assist Device Used No (0 pt) Altered Elimination No (0 pt) Score/Fall Risk Level 0 - 2 = Low Risk Oriented to surroundings, Maintained a safe environment, Educated pt \T\ family on fall prevention, incl call for assistance when getting out of bed. Abuse screen: Denies threats or abuse. Nutritional screening: No deficits noted. Tuberculosis screening: No symptoms or risk factors identified. Assessment: 21:51 Reassessment: No changes from previously documented assessment. Patient and/or family vc1 updated on plan of care and expected duration. Pain level reassessed. Patient is alert, oriented x 3, equal unlabored respirations, skin warm/dry/pink. 23:10 Reassessment: Patient and/or family updated on plan of care and expected duration. Pain vc1 level reassessed. Patient is alert, oriented x 3, equal unlabored respirations, skin warm/dry/pink. Patient states feeling better. Patient states symptoms have improved. Vital Signs: 19:42 BP 146 / 66; Pulse 80; Resp 17 S; Temp 97.8(O); Pulse Ox 98% on R/A; Weight 110.68 kg lg3 (R); Height 5 ft. 11 in. (R); 21:51 BP 131 / 64; Pulse 64; Resp 19; Pulse Ox 94% ; Pain 0/10; vc1 23:10 BP 145 / 64; Pulse 64; Resp 19; Pulse Ox 98% ; vc1 19:42 Body Mass Index 34.03 (110.68 kg, 180.34 cm) lg3 21:51 Pain Scale: Adult vc1 ED Course: 19:38 Patient arrived in ED. ag3 19:44 Triage completed. lg3 19:45 Arm band placed on right wrist. lg3 19:47 Gabriela Couch FNP-C is [facility]. kb 19:47 Rm Hurd MD is Attending Physician. kb 20:12 XRAY Chest (1 view) Sent. ls5 20:12 Inserted saline lock: 20 gauge in left antecubital area, using aseptic technique. Blood ls5 collected. 20:18 XRAY Chest (1 view) In Process Unspecified. EDMS 20:26 EKG done, by ED staff, reviewed by Gabriela ZELAYA. jw7 20:35 Roxanne Cazares, RN is Primary Nurse. vc1 21:51 Urinalysis w/ reflexes Sent. vc1 23:11 Provided Education on: diet. vc1 23:11 No provider procedures requiring assistance completed. IV discontinued, intact, vc1 bleeding controlled, No redness/swelling at site. Pressure dressing applied. Administered Medications: 21:51 Drug: NS 0.9% IV 500 ml IV at bolus once Route: IV; Rate: bolus; Site: left antecubital;vc1 23:09 Follow up: IV Status: Completed infusion; IV Intake: 500ml vc1 23:09 Drug: Potassium Chloride PO 20 mEq PO once Route: PO; vc1 23:10 Follow up: Response: Medication administered at discharge. vc1 Medication: 23:11 VIS not applicable for this client. vc1 Intake: 23:09 IV: 500ml; Total: 500ml. vc1 Outcome: 22:33 Discharge ordered by MD. kb 23:11 Discharged to home ambulatory, with significant other, vc1 23:11 Condition: good 23:11 Discharge instructions given to patient, Instructed on discharge instructions, follow up and referral plans. Demonstrated understanding of instructions, follow-up care, 23:12 Patient left the ED. vc1 Signatures: Dispatcher [employer] EDMS Gabriela Couch, CONCRETE SPREADER-C CONCRETE SPREADER-CkGinette Freitas ag3 Angelica France, RN RN lg3 Roxanne Cazares RN RN vc1 Trudy Bowen RN RN jw7 Jarrett Barone 5
--- NOTE | 2023-06-08 22:33 | EDPHYS ---
Physician Documentation [facility] Name: Luis Ryan Age: 63 yrs Sex: Male : 1960 Arrival Date: 06/08/2023 Time: 19:35 Bed 12 Private MD: ED Physician Rm Hurd HPI: 06/08 22:37 This 63 yrs old Male presents to ER via Ambulatory with complaints of Weakness, kb Shortness Of Breath. 22:37 Patient is a 63-year-old male who presents for generalized weakness and shortness of kb breath that started this morning. Denies cough, congestion, fever, chest pain.. Historical: - Allergies: 19:45 No Known Allergies; lg3 - Home Meds: 19:45 memantine 10 mg oral tablet 1 tab 2 times per day [Active]; atorvastatin 20 mg oral lg3 tablet 1 tab every day at bedtime [Active]; lisinopril-hydrochlorothiazide 20-25 mg Oral tab 1 tab once daily [Active]; hydrochlorothiazide 25 mg oral tablet daily [Active]; tamsulosin 0.4 mg oral capsule 1 cap twice a day [Active]; montelukast 10 mg oral tablet 1 tab daily [Active]; - PMHx: 19:45 Alzheimers; early in dx 11/2018 (2019); Hypertension; enlarged prostate (Hypertension); lg3 high cholesterol (Hypertension); - PSHx: 19:45 left arm (Hypertension); bilateral knee replacement (Hypertension); back lg3 (Hypertension); inguinal hernia repair (Hypertension); - Immunization history:: Adult Immunizations up to date. - Social history:: Smoking status: Patient denies any tobacco usage or history of. Patient/guardian denies using alcohol, street drugs. ROS: 22:33 Constitutional: Negative for fever, chills, and weight loss, kb 22:33 Respiratory: Positive for shortness of breath, 22:33 Neuro: Positive for weakness, 22:33 All other systems are negative, Exam: 22:33 Constitutional: This is a well developed, well nourished patient who is awake, alert, kb and in no acute distress. Head/Face: Normocephalic, atraumatic. ENT: Moist Mucous membranes Cardiovascular: Regular rate Respiratory: Respirations even and unlabored. No increased work of breathing. Talking in full sentences Abdomen/GI: Soft, non-tender. No distention Skin: Warm, dry with normal turgor. Normal color. MS/ Extremity: Pulses equal, no cyanosis. Neurovascular intact. Full, normal range of motion. Neuro: Awake and alert, GCS 15, oriented to person, place, time, and situation. Moves all extremities. Normal gait. 22:56 ECG was reviewed by the Attending Physician. kb Vital Signs: 19:42 BP 146 / 66; Pulse 80; Resp 17 S; Temp 97.8(O); Pulse Ox 98% on R/A; Weight 110.68 kg lg3 (R); Height 5 ft. 11 in. (R); 21:51 BP 131 / 64; Pulse 64; Resp 19; Pulse Ox 94% ; Pain 0/10; vc1 23:10 BP 145 / 64; Pulse 64; Resp 19; Pulse Ox 98% ; vc1 19:42 Body Mass Index 34.03 (110.68 kg, 180.34 cm) lg3 21:51 Pain Scale: Adult vc1 MDM: 19:47 Patient medically screened. kb 22:36 Data reviewed: vital signs, nurses notes. kb 22:37 Differential diagnosis: generalized weakness, hypovolemia, near-syncope, Electrolyte kb imbalance, dehydration. Management of patient was discussed with the following: Dr. Nur, recommends 500ml NS bolus . Historians other than the Patient: Spouse/Significant Other: . Counseling: I had a detailed discussion with the patient and/or guardian regarding the historical points, exam findings, and any diagnostic results supporting the discharge/admit diagnosis, lab results, the need for outpatient follow up, a family practitioner, to return to the emergency department if symptoms worsen or persist or if there are any questions or concerns that arise at home. 06/08 19:57 Order name: Basic Metabolic Panel; Complete Time: 20:58 kb 06/08 19:57 Order name: CBC with Diff; Complete Time: 20:46 kb 06/08 19:57 Order name: Magnesium; Complete Time: 20:58 kb 06/08 19:57 Order name: NT PRO-BNP; Complete Time: 20:58 kb 06/08 19:57 Order name: Troponin HS; Complete Time: 20:58 kb 06/08 20:23 Order name: COVID-19/FLU A+B/RSV; Complete Time: 21:05 EDMS 06/08 21:18 Order name: Urinalysis w/ reflexes; Complete Time: 22:07 jb4 06/08 19:57 Order name: XRAY Chest (1 view); Complete Time: 20:46 kb 06/08 19:57 Order name: EKG; Complete Time: 19:58 kb 06/08 19:57 Order name: Cardiac monitoring; Complete Time: 20:29 kb 06/08 19:57 Order name: EKG - Nurse/Tech; Complete Time: 20:27 kb 06/08 19:57 Order name: IV Saline Lock; Complete Time: 20:12 kb 06/08 19:57 Order name: Labs collected and sent; Complete Time: 20:12 kb 06/08 19:57 Order name: O2 Per Protocol; Complete Time: 20:27 kb 06/08 19:57 Order name: O2 Sat Monitoring; Complete Time: 20:27 kb EC:56 Rate is 69 beats/min. Rhythm is regular. QRS [place] is Normal. MD interval is normal at kb 178 msec. QRS interval is normal at 100 msec. QT interval is normal at 432 msec. Administered Medications: 21:51 Drug: NS 0.9% IV 500 ml IV at bolus once Route: IV; Rate: bolus; Site: left antecubital;vc1 23:09 Follow up: IV Status: Completed infusion; IV Intake: 500ml vc1 23:09 Drug: Potassium Chloride PO 20 mEq PO once Route: PO; vc1 23:10 Follow up: Response: Medication administered at discharge. vc1 Disposition: 06/09 22:27 Co-signature as Attending Physician, Rm Hurd MD I reviewed the patient's care rt provided by the Advanced Practice Provider and agree with the diagnosis and treatment plan. Disposition Summary: 06/08/23 22:33 Discharge Ordered Notes: Location: Home kb Condition: Stable kb Diagnosis - Hyponatremia kb - Weakness kb Followup: kb - With: Emergency Department - When: As needed - Reason: Worsening of condition Followup: kb - With: Private Physician - When: 2 - 3 days - Reason: Recheck today's complaints, Continuance of care, Re-evaluation by your physician Discharge Instructions: - Discharge Summary Sheet kb - Hyponatremia, [id number] kb - Weakness, [id number] kb Forms: - Medication Reconciliation Form kb - Thank You Letter kb - Antibiotic Education kb - Prescription Opioid Use kb - Patient Portal Instructions kb - Leadership Thank You Letter kb Signatures: Dispatcher [employer] EDMS Gabriela Couch, NATHALIE BENTON-Angelica White, RN RN lg3 Roxanne Cazares RN RN vc1 Rm Hurd MD MD rt Corrections: (The following items were deleted from the chart) 06/08 20:23 19:57 SARS-COV-2 RT PCR+MOL.LAB.BRZ ordered. EDMS EDMS 20:24 19:57 Influenza Screen (A \T\ B)+BA.LAB.BRZ ordered. EDMS EDMS
[2023-06-08] MEDS ORDERED: POTASSIUM CL SA 10 MEQ TAB PO ONE (23:17)
--- NOTE | 2023-06-11 14:18 | EKG ---
Test Date: 2023-06-08 Test Time: 21:25:23 [employer]ler: CHANDRIKA MEASUREMENT RESULTS: Intervals: Rate: 69 HI: 178 QRSD: 100 QT: 404 QTc: 432 [place]: P: 28 HI: 178 QRS: 11 T: -3 INTERPRETIVE STATEMENTS: Normal sinus rhythm Inferior infarct, age undetermined Abnormal ECG Compared to ECG 04/16/2020 15:44:47 Myocardial infarct finding now present Sinus tachycardia no longer present Electronically Signed On 06-11-23 14:09:42 MIRROR PAINTER by Cristóbal Márquez
== END 2023-06-08 23:12 | disposition home or self-care (01) ==
LOC: ER 19:35
DX: E87.1 Hypo-osmolality and hyponatremia (principal); R06.02 Shortness of breath; G30.9 Alzheimer's disease, unspecified; F02.80 Dementia in other diseases classified elsewhere, unspecified severity, without behavioral disturbance, psychotic disturbance, mood disturbance, and anxiety; I10 Essential (primary) hypertension; Z11.52 Encounter for screening for COVID-19; Z96.653 Presence of artificial knee joint, bilateral
CPT/HCPCS: 93005; 85025; 80048; 36415; 83735; 81003; 84484; 83880; 0241U; 71045; 96360; 99284; J7040